=== PATIENT | female | born 1980 | race Caucasian/White ===

== ENCOUNTER 2018-06-01 21:00 | Emergency (ER) | payer MEDICAID, SELFPAY ==
[2018-06-01 21:05] VITALS: BP 135/116; PULSE 57; RESP 20; TEMP 36.8; O2SAT 95
[2018-06-01 21:15] VITALS: RESP 20
--- NOTE | 2018-06-01 21:22 | ED.GENADUL ---
Disposition Clinical Impression: Vaso-vagal reaction Disposition: HOME Condition: Good Additional Instructions: Home to rest tonight. May use Zofran every 4-6 hours, if needed for nausea. Continue all regularly and recently prescribed medications. Return to the emergency department if you develop a fever, persistent nausea, developed chest pain, or any other acute concerns Medical Decision Making - Lab Data Laboratory Results - last 24 hr 06/01/18 06/01/18 21:15 21:15 WBC 12.02 H RBC 5.27 H Hgb 15.8 H Hct 47.1 H MCV 89.4 MCH 30.0 MCHC 33.5 RDW 13.6 Plt Count 254 MPV 10.2 Immature Gran % See Differential Neutrophils % 42.0 Lymphocytes % 43.0 Monocytes % 6.0 Eosinophils % 0.0 Basophils % 0.0 Absolute Neutrophils 5.05 Absolute Lymphocytes 6.25 H Absolute Monocytes 0.72 H Absolute Eosinophils 0.00 Absolute Basophils 0.00 Differential Comment Manual differential Atypical Lymphocytes 9 RBC Morphology Normal Sodium 137 Potassium 3.5 D Chloride 101 Carbon Dioxide 26.5 Anion Gap 9.5 BUN 10 Creatinine 0.83 Estimated GFR/1.73 m2 >= 60.00 Glucose 108 H Calcium 9.5 Magnesium 2.2 Total Bilirubin 0.4 AST 14 L ALT 20 Alkaline Phosphatase 114 Troponin I < 0.02 Total Protein 8.1 Albumin 3.9 Results reviewed for labs ordered during visit: Yes - EKG Data EKG shows normal: sinus rhythm Rate: bradycardia 06/01/18 21:24 Sinus bradycardia, rate 54, QRS is narrow, intervals unremarkable, no ST segment elevation - Medical Decision Making 38-year-old female presents emerged from today complaining of nausea, diaphoresis, near syncopal event following her receipt of IM medications and 2 g of oral azithromycin just prior. She arrives improved, afebrile with no focal findings on exam. Given IV fluids, screening labs obtained. Slightly hemoconcentrated with white count 12, hematocrit 47, platelets 254. Normal differential. Chemistries essentially within normal limits. EKG notable only for slight bradycardia. Patient improved with fluids and antiemetic, tolerating liquids and solids by mouth, feeling better. Stable and improved comfort were discharged home. Given resolution of symptoms, most consistent with vasovagal mediated near syncope is likely secondary to 2 g of p.o. azithromycin that was given on earlier visit. Counseled patient regarding return precautions to the ER. She will be discharged with Zofran to be used as needed. She will continue the previously prescribed medications. History of Present Illness - General Chief complaint: Chest Pain Stated complaint: CALEX Time Seen by Provider: 06/01/18 21:14 Source: patient, RN notes reviewed Mode of arrival: wheelchair Limitations: no limitations - History of Present Illness Initial comments: 38-year-old female presents with near syncopal event after leaving the emergency department following earlier treatment including laboratories, CT scan, the administration of 2 g oral azithromycin and IM gentamicin and ceftriaxone. She says she developed diaphoresis, nausea, felt like she was going to vomit. She says she felt lightheaded. She called her daughter who found her weak and diaphoretic. It is now improved. It was moderate to severe, now mild. She did not have headache, for physical facial droop or difficulty with speech. No other associated symptoms - Related Data Ibuprofen 800 mg PO TID PRN #90 tab-cap 12/06/17 Buspirone HCl 10 - 20 mg PO BID #150 tab-cap 04/05/18 Sertraline HCl [Zoloft] 2 tab PO DAILY #180 tab-cap 04/05/18 Doxycycline [Vibramycin] 100 mg PO BID 14 Days cap 06/01/18 MetroNIDAZOLE [Flagyl] 500 mg PO BID 7 Days tab 06/01/18 Allergies Allergy/AdvReac Type Severity Reaction Status Date / Time erythromycin base Allergy Unknown Unverified 06/01/18 15:31 [Erythromycin Base] Penicillins Allergy Unknown Unverified 06/01/18 15:31 bupropion AdvReac Intermediate IRRITABILITY; Unverified 06/01/18 15:31 ANGER Review of Systems Other: 6 systems reviewed, otherwise neg Past Medical History - Past Medical History PCOS, Kidney stone Surgical history: bilateral tubal ligation, other (Uterine ablation, Foot surgery) ASSIGNMENT EDITOR history: PCOS - Social History Alcohol use: occasionally Drug use: none General Exam - General Limitations: no limitations General appearance: alert, in no apparent distress - Head Head exam: Present: atraumatic, normocephalic - Eye Eye exam: Present: normal apperance, PERRL, EOMI - ENT ENT exam: Present: normal exam - Neck Neck exam: Present: normal inspection, full ROM - Respiratory Respiratory exam: Present: normal lung sounds bilaterally. Absent: respiratory distress - Cardiovascular Cardiovascular Exam: Present: regular rate, normal rhythm - GI/Abdominal GI/Abdominal exam: Present: soft. Absent: distended, tenderness - Extremities Exam Extremities exam: Present: normal inspection, full ROM - Neurological Exam Neurological exam: Present: alert, oriented X3 - Psychiatric Psychiatric exam: Present: normal affect, normal mood - Skin Skin exam: Present: warm, dry, intact Course Vital Signs - 24 hr 06/01/18 21:05 Temperature 36.8 C Pulse 57 L Respiratory 20 Rate Blood Pressure 135/116 Pulse Oximetry 95
[2018-06-01] MEDS: Normal Saline 1,000 ML 1000 ML IV (21:25)
[2018-06-01 21:30] VITALS: O2SAT 96
[2018-06-01 21:31] VITALS: BP 127/84; PULSE 60; O2SAT 96
[2018-06-01 21:40] VITALS: O2SAT 95
[2018-06-01] MEDS: Ondansetron 4 MG/2 ML VIAL IVP (21:40)
[2018-06-01 21:41] LABS: Abs Immature Grans 0.02 k/cumm (0.0-0.09); HCT 47.1 % (36.0-46.0); HGB 15.8 g/dL (12.0-15.5); Mean Corp. HGB Concentration 33.5 g/dL (32.0-36.0); Mean Corpuscular Volume 89.4 fL (80-95); Mean Platelet Volume 10.2 fL (8.0-11.0); Platelet Count 254 x1000/uL (130-400); RBC 5.27 m/cumm (4.00-5.20); RBC Distribution Width 13.6 % (11.7-14.6); White Blood Cell Count 12.02 k/cumm (4.4-10.8)
[2018-06-01] MEDS: Normal Saline Flush 10 ML SYR IVP (21:41)
[2018-06-01 22:07] LABS: Absolute Neutrophil Count 5.05 k/cumm (1.2-6.7)
[2018-06-01 22:08] LABS: Absolute Lymphocyte Count 6.25 k/cumm (1.2-3.4); Absolute Monocyte Count 0.72 k/cumm (0.11-0.7); Atypical Lymphocytes % 9; Diff Comment Manual Differential; RBC Morphology Normal
[2018-06-01 22:17] LABS: ALT 20 U/L (12-78); AST 14 U/L (15-37); Albumin 3.9 g/dL (3.4-5.0); Alkaline Phosphatase 114 U/L (46-116); Anion Gap 9.5 mmol/L (3-11); BUN 10 mg/dL (7-18); Bilirubin, Total 0.4 mg/dL (0.2-1.0); CO2 26.5 mmol/L (21.0-32.0); CREATININE 0.83 mg/dL (0.55-1.02); Calcium 9.5 mg/dL (8.5-10.1); Chloride 101 mmol/L (98-107); Glucose 108 mg/dL (70-100); Magnesium 2.2 mg/dL (1.8-2.4); Potassium 3.5 mmol/L (3.5-5.1); Sodium 137 mmol/L (136-145); Total Protein 8.1 g/dL (6.4-8.2)
[2018-06-01 22:19] LABS: Troponin I < 0.02 ng/mL (0.00-0.06)
[2018-06-01 23:19] VITALS: BP 127/84; PULSE 60; RESP 20; TEMP 36.8; O2SAT 95
[2018-06-01] MEDS: Ondansetron O.D.T. 4 MG TABEF PO (23:19)
== END 2018-06-01 23:36 | disposition home or self-care (01) ==
PROVIDERS: Emergency Provider Emergency Medicine; PCP Nurse Practitioner Family
DX: R55 Syncope and collapse (principal); R11.0 Nausea; R00.1 Bradycardia, unspecified; R61 Generalized hyperhidrosis
CPT/HCPCS: 36415; 80053; 93005; 96361; 96374; 99284; 83735; 84484; 85025; 93010; J2405

== ENCOUNTER 2018-09-23 10:44 | Emergency (ER) | payer OTHER, MEDICAID, SELFPAY ==
[2018-09-23 10:59] VITALS: BP 114/86; PULSE 62; RESP 16; TEMP 36.3; O2SAT 98
--- NOTE | 2018-09-23 11:31 | W.ED.GENAD ---
Discharge Plan Disposition Patient Disposition: HOME Condition: Stable Discharge Details Chief Complaint: Nk/Back Pain Clinical Impression: Sacroiliitis Primary Care Provider: Radha Shea ED Provider: Ken Smith Home Meds and New Rx's Prescriptions: New prednisone 20 mg tablet 40 mg PO DAILY 5 Days Qty: 10 RF: 0 methocarbamol [Robaxin-750] 750 mg tablet 750 mg PO TID PRN (Reason: prn muscle/back pain) Qty: 20 RF: 0 Continue buspirone 10 MG tablet 10 - 20 mg PO BID Qty: 150 RF: 3 sertraline [Zoloft] 100 MG tablet 2 tab PO DAILY Qty: 180 RF: 3 levonorgestrel-ethinyl estrad [Lessina] 0.1-20 mg-mcg tablet 1 tab PO DAILY Qty: 84 RF: 4 Discharge Instructions Instructions: Acute Low Back Pain (ED) Additional Instructions: Return for changes to ability to urinate, motor weakness of the lower extremity, worsening pain or any other concern concerns. Ibuprofen 800 mg every 8 hours, with food. Prednisone as prescribed. Methocarbamol, as prescribed as needed. Remove lidocaine patch in 12 hours. May use heat and/or ice as needed for discomfort Please follow-up with physical therapy Stand Alone Forms: Physical Therapy Referral, Work Release Medical Decision Making 38-year-old female presents with 2 days of the gradual onset of left low back pain. 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 She does not have any motor or sensory deficits. Most consistent with sacroiliac dysfunction. Screening urinalysis obtained: We will prescribe her a burst of steroids, work duties at rest, methocarbamol as needed, as well as follow-up with physical therapy. She understands return precautions to the ED. HPI General Mode of arrival: ambulatory. Date/Time Provider Initiated Documentation: 09/23/18 11:00. Limitations to Documentation: no limitations. Information obtained by: patient. History of Present Illness 38 year old F presents to the emergency department with the chief complaint of Low Back Pain, described as moderate, and is localized to the back. Patient reports no radiation. Patient started experiencing this day(s) and it has been constant. Related Data Home Medications Medication Instructions Recorded Confirmed buspirone 10 - 20 mg PO BID #150 tab-cap 04/05/18 09/23/18 sertraline [Zoloft] 2 tab PO DAILY #180 tab-cap 04/05/18 09/23/18 levonorgestrel-ethinyl estradiol 1 tab PO DAILY #84 tab 09/19/18 09/23/18 0.1 mg-20 mcg tablet methocarbamol [Robaxin-] 750 mg PO TID PRN #20 tab 09/23/18 prednisone 40 mg PO DAILY 5 Days #10 tab 09/23/18 Previous Rx's Medication Instructions Recorded buspirone 10 - 20 mg PO BID #150 tab-cap 04/05/18 sertraline [Zoloft] 2 tab PO DAILY #180 tab-cap 04/05/18 levonorgestrel-ethinyl estradiol 1 tab PO DAILY #84 tab 09/19/18 0.1 mg-20 mcg tablet methocarbamol [Robaxin-] 750 mg PO TID PRN #20 tab 09/23/18 prednisone 40 mg PO DAILY 5 Days #10 tab 09/23/18 Allergies Allergy/AdvReac Type Severity Reaction Status Date / Time azithromycin Allergy Severe Syncopal Unverified 09/16/18 13:00 episode erythromycin base Allergy Unknown Unverified 09/23/18 11:01 [Erythromycin Base] Penicillins Allergy Unknown Unverified 09/23/18 11:01 bupropion AdvReac Intermediate IRRITABILITY; Unverified 09/23/18 11:01 ANGER General Stated Complaint: Nk/Back Pain SARABJIT: 3 Review of Systems Review of Systems 6 systems reviewed and otherwise neg. PFSH Family History Son Asthma MATERNAL/PATERNAL HISTORY Breast cancer Mother No problems noted. Father No problems noted. Brother No problems noted. Grandfather No problems noted. Grandmother Essential hypertension Hyperlipidemia Daughter No problems noted. 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 Pleasant, well groomed, interactive. HEAD: Normocephalic, atraumatic ENT: Mucous membranes moist, oropharynx unremarkable, External ear exam unremarkable EYES: PERRL, EOMI NECK: Full ROM, no SEJAL, no menigismus CHEST/RESP: Nontender, clear to auscultation bilateral, no wheeze/rhonchi/rales CARDIOVASCULAR: RRR, no murmur, rub kayla. 2+ Rad pulse bilateral ABDOMEN: Soft, nontender, no mass. +Bowel sounds Back: Left SI joint tender to palpation. No midline tenderness, step-off, deformity EXT: Full ROM, no edema, no rash. Motor 5 out of 5. Sensation intact throughout including cell distribution. 1+ patella and 2+ ankle reflex bilaterally Neuro: Grossly normal neurologic exam, conversant, interactive. Psych: Speech fluent, thoughts congruent, affect normal Course Vital Signs Temperature 36.3 C L 09/23/18 10:59 Pulse 62 09/23/18 10:59 Respiratory Rate 16 09/23/18 10:59 Blood Pressure 114/86 09/23/18 10:59 Pulse Oximetry 98 09/23/18 10:59 Temperature 36.3 C L 09/23/18 10:59 Temperature Source Temporal Artery Scan 09/23/18 10:59 Pulse 62 09/23/18 10:59 Respiratory Rate 16 09/23/18 10:59 Blood Pressure 114/86 09/23/18 10:59 Blood Pressure Position Standing 09/23/18 10:59 Pulse Oximetry 98 09/23/18 10:59 Oxygen Delivery Method Room Air 09/23/18 10:59 Oxygen Flow Rate 0 09/23/18 10:59 Pain Level 10 09/23/18 10:59
[2018-09-23 11:50] LABS: Bilirubin Negative (Negative); Blood Negative (Negative); Clarity Clear; Glucose Negative (Negative); Ketones Negative (Negative); Leukocyte Esterase Negative (Negative); Nitrite Negative (Negative); Specific Gravity >= 1.030 (1.005-1.025); Urobilinogen 0.2 EU/dL (Up TO 0.2); pH 5.5 (5-8)
[2018-09-23] MEDS: Lidocaine 5% Patch 1 PATCH (12:20)
[2018-09-23 12:22] VITALS: BP 126/84; PULSE 64; RESP 16; TEMP 36.6; O2SAT 98
== END 2018-09-23 12:45 | disposition home or self-care (01) ==
LOC: ER 12:26
PROVIDERS: Emergency Provider Emergency Medicine; PCP Nurse Practitioner Family
DX: M46.1 Sacroiliitis, not elsewhere classified (principal); Z87.442 Personal history of urinary calculi
CPT/HCPCS: 99283; 81003

== ENCOUNTER 2019-01-11 20:43 | Outpatient (REF) | payer MEDICAID, SELFPAY ==
--- NOTE | 2019-01-11 14:30 | PAPFT_PTH ---
PATIENT: Marisol Castro LOC: [facility] U#:[id number] AGE/SX: 38/F ROOM: RE01/11/[address]: JG Cortez : 1980 BED: DIS: 01/11/2019 SPEC #: [id number] RECD: 01/12/19 12:41 STATUS: TORRIE BENAVIDES #: [id number] CRISTOFER: 01/11/19 14:[address]: Radha Shea DEPT: [facility] Cytology RECD BY: Julius Orlando Tissues: 1 - CX/ENDOCX FOR PAP SMEARS Procedures: PAP THIN PREP/UVM Screening HPV DNA PROBE Comments: [id number]
== END 2019-01-11 21:03 ==
LOC: LBN 20:43
PROVIDERS: PCP Nurse Practitioner Family; Visit Provider Nurse Practitioner Family
DX: Z12.4 Encounter for screening for malignant neoplasm of cervix (principal); Z11.51 Encounter for screening for human papillomavirus (HPV)
CPT/HCPCS: 88142; 87624

== ENCOUNTER 2019-04-26 09:27 | Outpatient (CLI) | payer MEDICAID, SELFPAY ==
--- NOTE | 2019-04-26 15:11 | DI.US_ITS ---
SYMPTOMS/DIAGNOSIS: HEAD LUMP TO RIGHT FOREHEAD X 2 YEARS, SIZE INCREASED, 3.3 X 0.4 X 3.3 CM, R22.0 SOFT TISSUE ULTRASOUND: Soft tissue ultrasound was performed to evaluate a palpable abnormality of the right forehead. Ultrasound shows an apparently extra-calvarial 33 x 4 x 33 mm mass with linear echocharacteristics. This is not a cyst by ultrasound characteristics. The possibility that this represents a lipoma is raised, but other etiologies including neoplastic disease not excluded. Correlation with cranial CT recommended.
--- NOTE | 2019-04-26 15:11 | DI.RAD_ITS ---
SYMPTOM/DIAGNOSIS: RT FOREHEAD X 2 YEARS, SIZE INCREASED R22.0 LIMITED VIEWS OF THE SKULL: Limited views of the skull were obtained with tangential views of the area of palpable abnormality of the right frontal region. There is mild soft tissue prominence in this area. No underlying bony abnormality seen. CONCLUSION: No evidence of bony involvement by soft tissue lesion as seen on ultrasound. The findings are nonspecific but most likely related to benign process by history and imaging. Correlation with cranial CT recommended if clinically appropriate.
[2019-04-26 19:47] LABS: Anion Gap 9.6 mmol/L (3-11); BUN 11 mg/dL (7-18); CO2 28.4 mmol/L (21.0-32.0); CREATININE 0.77 mg/dL (0.55-1.02); Calcium 9.4 mg/dL (8.5-10.1); Chloride 105 mmol/L (98-107); FREE T4 0.86 ng/dL (0.76-1.46); Glucose 97 mg/dL (70-100); Potassium 3.7 mmol/L (3.5-5.1); Sodium 143 mmol/L (136-145); TSH 2.28 uIU/mL (0.358-3.74)
[2019-04-26 20:05] LABS: Calculated LDL 115 mg/dL; Cholesterol 194 mg/dL (50-200); HDL Cholesterol 43 mg/dL (40-60); Triglyceride 183 mg/dL (30-150)
[2019-04-27 08:44] LABS: Hemoglobin A1C 5.5 % (4.5-6.2)
== END 2019-04-26 09:47 ==
PROVIDERS: PCP Nurse Practitioner Family; Visit Provider Nurse Practitioner Family
DX: R22.0 Localized swelling, mass and lump, head (principal); E78.5 Hyperlipidemia, unspecified; E28.2 Polycystic ovarian syndrome; D17.0 Benign lipomatous neoplasm of skin and subcutaneous tissue of head, face and neck
CPT/HCPCS: 76536; 80048; 80061; 83721; 70250; 83036; 84439; 84443

== ENCOUNTER 2019-05-11 07:20 | Outpatient (CLI) | payer MEDICAID, SELFPAY ==
--- NOTE | 2019-05-11 15:04 | DI.CT_ITS ---
SYMPTOM/DIAGNOSIS: LUMP OF FOREHEAD, NEW HEADACHE, R22.[address]: Pre and post contrast examination was performed. There is a non-enhancing, fat density mass overlying the right frontal bone. This corresponds to the palpable abnormality as a BB is placed on the area. The mass measures 2.5 cm. AP by 0.7 cm. transverse by 2.2 cm. craniocaudal. The finding is most suggestive of a fat density lesion such as a lipoma. No solid component or enhancing component is seen. There is a normal mayes white matter differentiation. The ventricles are intact. The basilar cisterns are patent. No acute intracranial hemorrhage, midline shift or mass effect is identified. The visualized paranasal sinuses are clear as are the mastoid air cells. The calvarium is intact. IMPRESSION: 1. 2.5 by 2.2 by 0.7 cm. fat density, non enhancing extracalvarial mass is seen in the subcutaneous tissues overlying the right frontal bone. The finding is most suggestive of a lipoma. 2. No acute intracranial process.
[2019-05-11] MEDS: Omnipaque 350 MG/ML 100 ML BTL IJ (15:45)
[2019-05-11] MEDS: Normal Saline Flush 10 ML SYR IVP (15:46)
== END 2019-05-11 07:40 ==
PROVIDERS: PCP Nurse Practitioner Family; Visit Provider Nurse Practitioner Family
DX: R22.0 Localized swelling, mass and lump, head (principal); R51 Headache; D17.0 Benign lipomatous neoplasm of skin and subcutaneous tissue of head, face and neck
CPT/HCPCS: 70470; J3490

== ENCOUNTER 2019-05-31 13:19 | Outpatient (CLI) | payer OTHER, SELFPAY ==
--- NOTE | 2019-05-31 11:22 | DI.RAD_ITS ---
SYMPTOMS/DIAGNOSIS: LEFT-SIDED LOW BACK PAIN LUMBOSACRAL SPINE: The vertebral bodies are intact. The disc spaces are intact. Minimal bony hypertrophic changes are evident. Note is, however, made of disc narrowing at T9-10 and T10-T11 with endplate hypertrophic changes and syndesmophyte formation at T9-T10. The pedicles, spinous and transverse processes are intact. The sacrum and sacroiliac joints are unremarkable. SUMMARY: Minimal degenerative changes involving the lumbar spine are demonstrated. Incidental note is made of degenerative changes involving the lower dorsal spine with disc narrowing and hypertrophic bony spurring.
== END 2019-05-31 13:39 ==
PROVIDERS: PCP Nurse Practitioner Family; Visit Provider Physician Assistant
DX: M54.5 Low back pain (principal); M54.6 Pain in thoracic spine; M47.815 Spondylosis without myelopathy or radiculopathy, thoracolumbar region
CPT/HCPCS: 72100

== ENCOUNTER 2019-06-02 14:01 | Outpatient (CLI) | payer MEDICAID, SELFPAY ==
[2019-06-02 14:41] LABS: HCT 42.4 % (36.0-46.0); HGB 14.4 g/dL (12.0-15.5)
== END 2019-06-02 14:21 ==
PROVIDERS: PCP Nurse Practitioner Family; Visit Provider Obstetrics & Gynecology
DX: N94.6 Dysmenorrhea, unspecified (principal); R10.2 Pelvic and perineal pain; Z01.818 Encounter for other preprocedural examination; Z01.812 Encounter for preprocedural laboratory examination
CPT/HCPCS: 36415; 86850; 86900; 86901; 85014; 85018

== ENCOUNTER 2019-06-08 11:47 | Day surgery (SDC) | payer MEDICAID, SELFPAY ==
--- NOTE | 2019-06-02 14:03 | W.PM.HP.N ---
Date of service: 06/08/19 Time of Service: 07:03 Assessment and Plan (1) Dysmenorrhea: Current visit: No Status: Acute r/b/a reviewed alternative of hysterectomy reviewed all questions asked and answered consents signed (2) Pelvic pain: Current visit: No Status: Acute History of Present Illness Chief Complaint: chronic pelvic pain, dysmenorrhea Narrative: 39 yo female with long standing hx chronic pelvic pain and dysmenorrhea Progesterone and continuous ocp's have failed to control her pain She presented to seek alternative treatment for her pain. She had an endometrial ablation with Dr. Bustamante , however, she has not appreciated any reduction of her bleeding post procedure Alternatives have been discussed including diagnostic laparoscopy vs hysterectomy. She curtis been informed laparoscopy will not be an effective treatment for menorraghia. She has declined hysterectomy Review of Systems Review of Systems All systems reviewed & are unremarkable except as noted in HPI and below PFSH Medical History Cigarette smoker (Chronic) Depressive disorder (Chronic 06/19/13) Gastroesophageal reflux disease without esophagitis (Inactive 02/06/16) Hyperlipidemia (Chronic) Obesity (Inactive) PCOS (polycystic ovarian syndrome) (Chronic 07/13/14) Surgical History History of bilateral ligation of fallopian tubes (Inactive) Hx of bursectomy (Inactive 02/04/15) S/P excision of ganglion cyst (Inactive 03/20/14) Family History Mother No problems noted. Father No problems noted. Brother No problems noted. Daughter No problems noted. Son Asthma Maternal Grandfather No problems noted. Maternal Grandmother Essential hypertension Hyperlipidemia Paternal Grandfather No problems noted. Paternal Grandmother No problems noted. 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 Pets and animals: Yes Pets and animals: cat(s) and bird(s) Sexually active: Yes Do you think of yourself as: straight/heterosexual What is your relationship status?: How often do you talk on the phone with friends or family?: three or more times per week How often do you get together with friends or relatives?: decline to answer How often do you attend voodoo or druze services?: decline to answer Do you belong to any clubs or organized social groups?: no Panel score (0-1 are the most socially isolated patients): 1 What type of physical activity do you participate in: none Frequency: daily Kailee/Presybeterian: None Special kailee needs: No Do you feel safe in your relationship?: Yes Female Reproductive History Menstrual control method: pills History History 2 Para 2 Hx # Term Pregnancies Multiple births Hx # Pregnancies Ectopic pregnancies AB induced Hx Number of Living Children 2 AB spontaneous Meds Home Medications Medication Instructions Recorded Confirmed Type methocarbamol 750 mg tablet 750 mg PO TID PRN #90 tab 12/14/18 06/02/19 Rx norethindrone (contraceptive) 0.35 0.35 mg PO DAILY #28 tab 02/03/19 06/02/19 Rx mg tablet ibuprofen 800 mg tablet 800 mg PO Q12H PRN #90 tab 04/13/19 06/02/19 Rx sumatriptan succinate 50 mg tablet 50 mg PO Q2H PRN #60 tab 04/13/19 06/02/19 Rx sertraline 100 mg tablet 200 mg PO DAILY #180 tab 05/29/19 06/02/19 Rx buspirone 10 mg tablet 10 mg PO BID tab 05/31/19 06/02/19 History Allergies Allergy/AdvReac Type Severity Reaction Status Date / Time azithromycin Allergy Severe Syncopal Unverified 06/02/19 13:18 episode erythromycin base Allergy Unknown Unverified 06/02/19 13:18 [Erythromycin Base] Penicillins Allergy Unknown Unverified 06/02/19 13:18 bupropion AdvReac Intermediate IRRITABILITY; Unverified 06/02/19 13:18 ANGER Exam Const General: cooperative, healthy appearing, comfortable and no acute distress Resp Effort & Inspection: normal respiratory effort Auscultation: clear to auscultation bilaterally Cardio Rate: regular rate Rhythm: regular rhythm Heart Sounds: S1 normal and S2 normal GI Inspection: normal to inspection Palpation: soft and no hepatosplenomegaly Auscultation: normal bowel sounds Speculum Exam - Cervix: normal appearance of the cervix and cervical tenderness Bimanual Exam- Vagina & Uterus: cervical tenderness and uterus fixed Bimanual Exam- Adnexa, other: no adnexal masses and adnexal tenderness
[2019-06-08] VITALS (9 sets, daily range): BP systolic 122–149; BP diastolic 61–108; PULSE 75–83; RESP 13–18; TEMP 36.3–37.1; O2SAT 93–97
[2019-06-08] MEDS: Lactated Ringers 1,000 ML 125 ML IV ×2 (12:26→15:41)
[2019-06-08] MEDS: Bupivacaine 0.25% Pres-Free 30 ML VIAL (13:13)
[2019-06-08] MEDS: fentaNYL 100 MCG/2 ML VIAL IVP ×2 (14:51→15:15)
[2019-06-08] MEDS: Ondansetron 4 MG/2 ML VIAL IVP (14:55)
[2019-06-08] MEDS: HYDROmorphone 2 MG/ML VIAL IVP (15:08)
[2019-06-08] MEDS: oxyCODONE 5 mg/Acetaminophen 325 mg TAB 1 TAB PO (16:43)
--- NOTE | 2019-06-09 11:55 | ROE_ITS ---
DATE OF PROCEDURE: June 08, 2019 PREOPERATIVE DIAGNOSIS: Pelvic pain. POSTOPERATIVE DIAGNOSIS: Pelvic pain, extensive pelvic adhesions. SURGERY: Diagnostic laparoscopy, extensive lysis of adhesions for greater than one hour. SURGEON: Fidelina Allen M.D. LANCE CREWMEMBER/MLRS SERGEANT: João Jones ANESTHESIA: General. COMPLICATIONS: None. ESTIMATED BLOOD LOSS: < 25 cc's FLUIDS: 700 cc's LR URINE OUTPUT: 100 cc's FINDINGS: Normal liver, gallbladder. Multiple adhesions to the right pelvic sidewall; epiploica adh esions to the right fallopian tube and ovary; adhesions along the left pelvic sidewall and mid-abdome n. PROCEDURE: The patient was taken to the Operating Room where she was properly identified. She was t hen placed on the operating table in the dorsal supine position and general anesthesia was induced wi thout difficulty. She was then placed in the dorsal lithotomy position. She had SCD boots on. She was prepped and draped in a normal sterile fashion. A formal time-out procedure was then performed, confirming patient and procedure. A Juarez catheter was placed. A bi-valved speculum was placed; the cervix was visualized and the uterine manipulator advanced into the uterine cavity without difficulty. The speculum was removed. The surgeon changed her gloves and attention was then turned to the abdomen. A 5 mm infraumbilical injection was made with 0.25% Aby ine. A 5 mm incision was made. The Veress needle was attempted to be placed into the peritoneal cav ity; however there was no drop in pressure, nor changes in a fluid-filled syringe. Therefore it was decided to proceed with an open laparoscopy. A 10 mm incision was made as an extension from the 5 mm incision; this was carried down to the underl tata fascia. The fascia was grasped x2 with Conor clamps and entered sharply. A Verónica was then pl aced. Sutures were placed to secure the Verónica in position. The abdomen was then insufflated of C02 gas. The laparoscope advanced into the peritoneal cavity and a thorough inspection ensued with the above findings. Over greater than an hour and a half was the time. Each area of adhesion was taken down in a series of cauterization and cut. The lysis of adhesions started with first removing the ad hesions of the epiploica to the right fallopian tube and ovary, then the right pelvic sidewall and le ft pelvic sidewall, and then the mid-abdomen, where there were adhesions to the anterior abdominal wa ll. A thorough inspection of the pelvic cavity revealed no evidence of endometriosis. The pelvis wa s irrigated. A small amount of cautery was required on the right fallopian tube to achieve hemostasi s. Once hemostasis was confirmed, the abdomen was de-sufflated of C02 gas, the ports removed and the fascia of the 10 mm port at the umbilicus was closed with a [id number]-orvoz of #0 Vicryl. The skin was closed with #4-0 Monocryl in a subcuticular fashion, both the 10 mm and the two lower 5 mm ports and then Dermabond was applied. The Juarez was removed, as well as the uterine manipulator. The regla ent was taken to the recovery room in stable condition. Sponge, lap, needle and instrument counts we re correct x2.
== END 2019-06-08 17:00 | disposition home or self-care (01) ==
PROVIDERS: PCP Nurse Practitioner Family; Visit Provider Obstetrics & Gynecology
PROC: (CPT 49320; principal; 2019-06-08 13:00)
DX: R10.2 Pelvic and perineal pain (principal); N73.6 Female pelvic peritoneal adhesions (postinfective)
CPT/HCPCS: 58660; NC; J1100; J1885; J2405; J3010

== ENCOUNTER 2020-04-20 09:19 | Emergency (ER) | payer MEDICAID, SELFPAY ==
[2020-04-20 09:24] VITALS: BP 142/89; PULSE 81; RESP 18; TEMP 36.8; O2SAT 96
--- NOTE | 2020-04-20 10:08 | ED.GENADUL_ITS ---
Discharge Plan Disposition Patient Disposition: HOME Condition: Stable Discharge Details Chief Complaint: EyeProblem Clinical Impression: Sty, internal Primary Care Provider: Radha Shea ED Provider: Lilia Longoria Home Meds and New Rx's Prescriptions: New ofloxacin 0.3 % drops See Rx Instructions .ROUTE .COMPLEX Qty: 5 RF: 1 Continued methocarbamol [Robaxin-750] 750 mg tablet 750 mg PO TID PRN (Reason: prn muscle/back pain) Qty: 90 RF: 2 sumatriptan succinate 50 mg tablet 50 mg PO Q2H PRN (Reason: migraine headache) Qty: 60 RF: 1 ibuprofen [IBU] 800 mg tablet 800 mg PO Q8H PRN (Reason: pain) Qty: 90 RF: 2 Lupron Depot (3 month) 11.25 mg syringe kit 11.25 mg IM [id number] Qty: 1 RF: 0 norethindrone acetate [Aygestin] 5 mg tablet 2.5 mg PO DAILY Qty: 90 RF: 3 estradiol [Estrace] 0.5 mg tablet 0.5 mg PO DAILY Qty: 90 RF: 3 sertraline [Zoloft] 100 mg tablet 200 mg PO DAILY Qty: 180 RF: 4 buspirone 10 mg tablet 10 - 20 mg PO TID Qty: 420 RF: 4 Discharge Instructions Instructions: Annita (ED) Additional Instructions: Frequent warm compresses to the eye as discussed. After using warm compresses please wash hands to avoid any spread and wash compresses. Use antibiotic drops as prescribed. Tylenol for soreness if needed. Follow-up with [facility] if not improving in the next 3 days Rest activities as tolerated. Observe for fevers, increased eye pain or swelling, vision changes or worsening symptoms as discussed. Return for any worsening, concerns or alarming symptoms sooner if needed as discussed Referrals: [facility] [Outside] Medical Decision Making 39-year-old patient who is quite pleasant presenting to the emergency room for complaints of left lower eyelid discomfort which began 6 days ago. Patient denies any vision change or blurred vision. Patient was concerned with the development of a stye and reports increase in swelling and pain since onset on Wednesday. Patient denies any fevers or chills. Patient denies any injury or trauma to the eye. On exam patient has clinical findings consistent with stye to the lower left lateral eyelid with associated crusting. No conjunctival injection. Will treat appropriately for stye recommending warm compresses as well as antibiotic administration. Given patient's allergies to azithromycin erythromycin and penicillin will use ofloxacin. Patient agrees with plan of care. Provided referral information for [facility] if symptoms are not improving over the weekend. Alarming signs and symptoms for which patient should return were discussed. At this time patient has no evidence of conjunctival infection or irritation. Patient has nothing to indicate a septal or preseptal cellulitis. The patient was stable and requested discharge. Prior to discharge, my usual and customary return precautions were reviewed with the patient - this included follow-up instructions and reasons to return to the Emergency Department if conditions worsens, does not improve as expected, or other new concerns arise. HPI General Date/Time Provider Initiated Documentation: 04/20/20 09:24 . HPI Narrative: This is a 39-year-old patient presenting to the emergency room for complaints of left eye pain. Patient indicates the area of the left lower lateral aspect of her eyelid as her site of pain. Patient reports she went to her PCP on Wednesday concern for developing stye. Patient reports she has not been prescribed antibiotic, PCP felt conservative treatments would improve patient's symptoms. Patient reports persistent symptoms throughout the weeks worsening yesterday and this morning. Patient now has an obvious area of redness and swelling noted to the left lower eyelid. Patient denies any vision change, blurred vision, double vision. Patient denies any pain to the globe. Patient denies headache or dizziness. Denies any ill feeling. No upper respiratory symptoms specifically denies sore throat, chest pain, cough, difficulty breathing or shortness of other wheezing. No fevers or chills. No other concerns or complaints at this time. Patient specifically denies any injury or trauma to the eye. Related Data Home Medications Medication Instructions Recorded Confirmed sertraline 100 mg tablet 200 mg PO DAILY #180 tab 05/29/19 04/20/20 buspirone 10 mg tablet 10 - 20 mg PO TID #420 tab-cap 10/10/19 04/20/20 leuprolide (3 month) 11.25 mg (3 11.25 mg IM [id number] #1 each 01/02/20 04/20/20 month) intramuscular syringe kit norethindrone acetate 5 mg tablet 2.5 mg PO DAILY #90 tab 01/02/20 04/20/20 ibuprofen 800 mg tablet 800 mg PO Q8H PRN #90 tab 01/17/20 04/20/20 methocarbamol 750 mg tablet 750 mg PO TID PRN #90 tab 01/17/20 04/20/20 sumatriptan succinate 50 mg tablet 50 mg PO Q2H PRN #60 tab 01/17/20 04/20/20 estradiol 0.5 mg tablet 0.5 mg PO DAILY #90 tab 01/30/20 04/20/20 ofloxacin See Rx Instructions .ROUTE 04/20/20 .COMPLEX #5 ml Previous Rx's Medication Instructions Recorded sertraline 100 mg tablet 200 mg PO DAILY #180 tab 05/29/19 buspirone 10 mg tablet 10 - 20 mg PO TID #420 tab-cap 10/10/19 leuprolide (3 month) 11.25 mg (3 11.25 mg IM [id number] #1 each 01/02/20 month) intramuscular syringe kit norethindrone acetate 5 mg tablet 2.5 mg PO DAILY #90 tab 01/02/20 ibuprofen 800 mg tablet 800 mg PO Q8H PRN #90 tab 01/17/20 methocarbamol 750 mg tablet 750 mg PO TID PRN #90 tab 01/17/20 sumatriptan succinate 50 mg tablet 50 mg PO Q2H PRN #60 tab 01/17/20 estradiol 0.5 mg tablet 0.5 mg PO DAILY #90 tab 01/30/20 ofloxacin See Rx Instructions .ROUTE 04/20/20 .COMPLEX #5 ml Allergies Allergy/AdvReac Type Severity Reaction Status Date / Time azithromycin Allergy Severe Syncopal Unverified 04/20/20 09:28 episode erythromycin base Allergy Intermediate Nausea Unverified 04/20/20 09:28 [Erythromycin Base] Penicillins Allergy Unknown Unverified 04/20/20 09:28 bupropion AdvReac Intermediate IRRITABILITY; Unverified 04/20/20 09:28 ANGER General Stated Complaint: EyeProblem SARABJIT: 4 Review of Systems All systems reviewed & are unremarkable except as noted in HPI and below PFSH Medical History Cigarette smoker (Chronic) Depressive disorder (Chronic) Gastroesophageal reflux disease without esophagitis (Inactive) Generalized anxiety disorder (Chronic) Hyperlipidemia (Chronic) Obesity (Inactive) PCOS (polycystic ovarian syndrome) (Chronic) Social History Smoking/Tobacco Use Status: Current every day Tobacco Type: cigarettes Smoking packs per day: 0.75 Smoking cigarettes per day: 15.0 Years smoked: 20 Smoking pack-years: 15.00 Quit status: not considering quitting Second Hand Exposure: Yes Counseling given: provider counseling Alcohol Intake: never Drug use: Daily Substance use type: marijuana Caregiver/Support person: No Household members: children Housing: apartment Communication Needs: None Do you need help understanding health information?: Rarely 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 Pets and animals: Yes Pets and animals: cat(s) and bird(s) Sexually active: Yes Do you think of yourself as: straight/heterosexual Current gender identity: male What is your relationship status?: How often do you talk on the phone with friends or family?: decline to answer How often do you get together with friends or relatives?: decline to answer How often do you attend rastafari or baptist services?: decline to answer Do you belong to any clubs or organized social groups?: no Panel score (0-1 are the most socially isolated patients): 0 What type of physical activity do you participate in: decline to answer Duration: decline to answer Frequency: decline to answer Kailee/Restorationism: Other Special kailee needs: No Seatbelt use: sometimes Helmet use: Yes Helmet use: sometimes Drive intox or ride w/intox local flatbed driver: No Do you feel safe at home: Yes Do you feel safe in your relationship?: Yes Female Reproductive History Menstrual control method: permanent sterilization History History 2 Para 2 Hx # Term Pregnancies Multiple births Hx # Pregnancies Ectopic pregnancies AB induced Hx Number of Living Children 2 AB spontaneous Exam Narrative Exam Narrative: CONST: Healthy appearing patient, in no acute distress. Well hydrated. Alert and oriented. HENMT: Head nomocephalic, normal to inspection. Atraumatic. Hearing grossly normal. EYES: General normal appearance. Alignment normal. Eyelids normal on right. Obvious area of swelling and tenderness with palpation noted to the lower left lateral eyelid. Edema present focally. Crusting on the lower lid present in the lateral canthus. Conjunctiva normal. Extraocular movements intact without pain NECK: Normal visual inspection. FROM. Trachea midline. No Midline tenderness. No cervical lymphadenopathy CHEST: Normal insepection of the chest. RESP: Normal respiratory effort. Speaking full sentences. No cough. No audible wheezing. No retractions. CARDIO: No JVD. MUSCULOSKELETAL: Normal Gait. FROM of all extremities. SKIN: Normal. Dry. No rashes. NEURO: Alert and awake. Speech clear. PSYCH: Normal affect. Cooperative. Course Vital Signs Vital signs: Vital Signs Temperature 36.8 C 04/20/20 09:24 Pulse 81 04/20/20 09:24 Respiratory Rate 18 04/20/20 09:24 Blood Pressure 142/89 H 04/20/20 09:24 Pulse Oximetry 96 04/20/20 09:24 Temperature 36.8 C 04/20/20 09:24 Temperature Source Temporal Artery Scan 04/20/20 09:24 Pulse 81 04/20/20 09:24 Respiratory Rate 18 04/20/20 09:24 Respiratory Effort Non-Labored 04/20/20 09:30 Blood Pressure 142/89 H 04/20/20 09:24 Blood Pressure Position Sitting 04/20/20 09:24 Pulse Oximetry 96 04/20/20 09:24 Pain Level 8 04/20/20 09:24
== END 2020-04-20 10:11 | disposition home or self-care (01) ==
PROVIDERS: Emergency Provider Physician Assistant; PCP Nurse Practitioner Family
DX: H00.025 Hordeolum internum left lower eyelid (principal)
CPT/HCPCS: 99283

== ENCOUNTER 2020-05-27 21:24 | Outpatient (REF) | payer MEDICAID, SELFPAY ==
[2020-05-30 18:34] LABS: Chlamydia Result Negative (Negative); GC Result Negative (Negative)
== END 2020-05-27 21:44 ==
LOC: LBN 21:24
PROVIDERS: PCP Nurse Practitioner Family; Visit Provider Obstetrics & Gynecology
DX: R10.9 Unspecified abdominal pain (principal); R10.2 Pelvic and perineal pain
CPT/HCPCS: 87491; 87591; 87086; 87480; 87510; 87660

== ENCOUNTER 2020-11-20 02:36 | Outpatient (CLI) | payer MEDICAID, SELFPAY ==
--- NOTE | 2020-11-20 07:45 | DI.US_ITS ---
EXAM: US PELVIS TRANSVAGINAL CLINICAL HISTORY: PELVIC PAIN, R10.2. TECHNIQUE: Transabdominal and transvaginal pelvic ultrasound was performed using standard protocol. COMPARISON: US PELVIS TRANSVAG from 02/02/2012 FINDINGS: KIDNEYS: Kidneys are symmetric in size. There is a single shadowing echogenic focus in each kidney co nsistent with nonobstructing stones. No evidence of hydronephrosis. No renal mass or cyst identified . UTERUS: Position: Anteverted. Size: 6.1 long by 2.3 AP by 4.2 transverse cm Endometrium: 0.2 cm. Normal for patient's menstrual status. Myometrium: Unremarkable. Cervix: Unremarkable. OVARIES: Right: 2.8 x 1.6 x 2 cm Cyst or mass: Small functional cysts are present. Left: 2.1 x 1.4 x 1.4 cm Cyst or mass: Small functional cysts are present. DOPPLER: Color: Symmetric and uniform flow to both ovaries. No hyperemia. Duplex: Normal ovarian arterial waveforms visualized. CUL-DE-SAC: Free fluid: None. Other: None. IMPRESSION: 1. Bilateral nephrolithiasis. No hydronephrosis. 2. Normal-appearing uterus with endometrial stripe within normal limits. 3. Unremarkable bilateral ovaries. DATA REPOSITORY:
== END 2020-11-20 02:56 ==
PROVIDERS: PCP Nurse Practitioner Family; Visit Provider Obstetrics & Gynecology
DX: N20.0 Calculus of kidney (principal)
CPT/HCPCS: 76830; 76856

== ENCOUNTER 2020-12-10 08:53 | Emergency (ER) | payer MEDICAID, SELFPAY ==
--- NOTE | 2020-12-10 08:56 | ED.GENADUL_ITS ---
Discharge Plan Disposition Patient Disposition: HOME Condition: Stable Discharge Details Clinical Impression: URI with cough and congestion Primary Care Provider: Radha Shea ED Provider: Sheri Sánchez Home Meds and New Rx's Prescriptions: Continued methocarbamol [Robaxin-750] 750 mg tablet 750 mg PO TID PRN (Reason: prn muscle/back pain) Qty: 90 RF: 2 sumatriptan succinate 50 mg tablet 50 mg PO Q2H PRN (Reason: migraine headache) Qty: 60 RF: 1 ibuprofen [IBU] 800 mg tablet 800 mg PO Q8H PRN (Reason: pain) Qty: 90 RF: 2 buspirone 10 mg tablet 10 - 20 mg PO TID Qty: 420 RF: 4 cyclobenzaprine 10 mg tablet 10 mg PO HS Qty: 30 RF: 0 progesterone micronized [Prometrium] 100 mg capsule 100 mg PO QAM 90 Days Qty: 90 RF: 3 sertraline [Zoloft] 100 mg tablet 200 mg PO DAILY Qty: 180 RF: 4 Discharge Instructions Instructions: Ipratropium/Albuterol (By breathing), Upper Respiratory Infection (ED) Additional Instructions: Use inhaler 1 to 2 puffs every 4-6 hours as needed for wheezing and shortness of breath, try to quit smoking if possible or at least cut down. Your flu swab and strep swab were negative today, chest x-ray shows no pneumonia or pulmonary infiltrate. Please take Tylenol or Ibuprofen with food every 4-6 hours as needed for pain and swelling. Follow up with primary care provider in 3-5 days. Return to ED sooner if any worsening or concerns. Increase oral fluids. Stand Alone Forms: PENDING COVID-19 TESTING, Work Release Referrals: Radha Shea NP [Primary Care Provider] - Discharge Data Discharge Date/Time-TO BE ENTERED AT DEPARTURE: 12/10/20 11:18 Medical Decision Making 40-year-old female with a past medical history of PCOS, hyperlipidemia, obesity, daily cigarette smoker, GERD, depression presents to the ED chief complaint of URI type symptoms, she reports cough, sore throat, sinus pressure, wheezing. She has been on prednisone for the last 9 days for back pain. Work-up ordered including Covid, flu, rapid strep chest x-ray and albuterol, ipratropium inhaler 2 puffs here now. Patient denies any chance of due to previous tubal ligation. Differential diagnosis includes but not limited to bronchitis, Covid, flu, strep, pneumonia, early COPD COMPARISON: CR CHEST 2 VIEWS PA,LAT from 06/01/2018 FINDINGS: MEDIASTINUM: Normal. HEART: Normal. PULMONARY VASCULATURE: Normal. LUNGS: Clear. PLEURAL SPACE: No pleural effusion or pneumothorax. BONE:Within normal limits for the patient's age. OTHER FINDINGS:Normal. IMPRESSION: No acute pulmonary findings. At the time of this dictation PET Covid is pending, strep is negative, negative for flu a and B antigens. Discussed results with patient, who verbalized understanding. Will place patient on Covid precautions. Discuss strict return instructions, verbalized un derstanding. Patient given Combivent inhaler 2 puffs here now an inhaler to go home with. This text was generated using [employer] dictation system, please disregard any oddities of phrase or misspellings. HPI General Mode of arrival: ambulatory . Date/Time Provider Initiated Documentation: 12/10/20 08:54 . Limitations to Documentation: no limitations . Information obtained by: patient . HPI Narrative: 40-year-old female with a past medical history of PCOS, hyperlipidemia, obesity, daily cigarette smoker, GERD, depression presents to the ED chief complaint of URI type symptoms, she reports cough, sore throat, sinus pressure, wheezing. She has been on prednisone for the last 9 days for back pain. Related Data Home Medications Medication Instructions Recorded Confirmed ibuprofen 800 mg tablet 800 mg PO Q8H PRN #90 tab 01/17/20 12/10/20 methocarbamol 750 mg tablet 750 mg PO TID PRN #90 tab 01/17/20 12/10/20 sumatriptan succinate 50 mg tablet 50 mg PO Q2H PRN #60 tab 01/17/20 12/10/20 sertraline 100 mg tablet 200 mg PO DAILY #180 tab 05/29/20 12/10/20 buspirone 10 mg tablet 10 - 20 mg PO TID #420 tab-cap 07/18/20 12/10/20 cyclobenzaprine 10 mg tablet 10 mg PO HS #30 tab 10/28/20 12/10/20 progesterone micronized 100 mg 100 mg PO QAM 90 Days #90 cap 12/03/20 12/10/20 capsule Previous Rx's Medication Instructions Recorded ibuprofen 800 mg tablet 800 mg PO Q8H PRN #90 tab 01/17/20 methocarbamol 750 mg tablet 750 mg PO TID PRN #90 tab 01/17/20 sumatriptan succinate 50 mg tablet 50 mg PO Q2H PRN #60 tab 01/17/20 sertraline 100 mg tablet 200 mg PO DAILY #180 tab 05/29/20 buspirone 10 mg tablet 10 - 20 mg PO TID #420 tab-cap 07/18/20 cyclobenzaprine 10 mg tablet 10 mg PO HS #30 tab 10/28/20 progesterone micronized 100 mg 100 mg PO QAM 90 Days #90 cap 12/03/20 capsule Allergies Allergy/AdvReac Type Severity Reaction Status Date / Time azithromycin Allergy Severe Syncopal Verified 12/10/20 09:06 episode erythromycin base Allergy Intermediate Nausea Verified 12/10/20 09:06 [Erythromycin Base] Penicillins Allergy Unknown Verified 12/10/20 09:06 bupropion AdvReac Intermediate IRRITABILITY; Verified 12/10/20 09:06 ANGER General SARABJIT: 4 Review of Systems Narrative: Constitutional: Negative for weight loss, alert and oriented, well groomed, normal body habitus, appears uncomfortable. HEENT: Denies trauma, headaches, blurry vision, positive sore throat, trouble swallowing. Chest: Denies chest pain, palpitations, irregular rhythm, hypertension. Respiratory: Denies hemoptysis. Positive cough, wheezing, productive cough with yellow phlegm. GI: Denies abdominal pain, nausea, vomiting, diarrhea, constipation. : Denies dysuria, hematuria, flank pain, rectal bleeding. Neuro: Denies dizziness, blurry vision, weakness, syncope, headache or facial numbness. Hematologic: Denies easy bruising, intolerance to heat or cold, hair loss. [facility] Medical History Cigarette smoker Depressive disorder Gastroesophageal reflux disease without esophagitis Generalized anxiety disorder Hyperlipidemia Obesity PCOS (polycystic ovarian syndrome) Pelvic pain Surgical History History of bilateral ligation of fallopian tubes History of endometrial ablation Hx of bursectomy (02/04/15) Excision of chronically inflamed prepatellar bursa, left knee. S/P excision of ganglion cyst (03/20/14) Of right ankle Family History Mother No problems noted. Father No problems noted. Brother No problems noted. Daughter No problems noted. Son Asthma Maternal Grandfather No problems noted. Maternal Grandmother Essential hypertension Hyperlipidemia Paternal Grandfather No problems noted. Paternal Grandmother No problems noted. 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 Pets and animals: Yes Pets and animals: cat(s) and bird(s) Sexually active: Yes Do you think of yourself as: straight/heterosexual Current gender identity: male What is your relationship status?: How often do you talk on the phone with friends or family?: decline to answer How often do you get together with friends or relatives?: decline to answer How often do you attend uatsdin or anabaptism services?: decline to answer Do you belong to any clubs or organized social groups?: no Panel score (0-1 are the most socially isolated patients): 0 What type of physical activity do you participate in: decline to answer Duration: decline to answer Frequency: decline to answer Kailee/Yarsanism: Other Special kailee needs: No Seatbelt use: sometimes Helmet use: Yes Helmet use: sometimes Drive intox or ride w/intox wedding transportation driver: No Do you feel safe at home: Yes Do you feel safe in your relationship?: Yes Female Reproductive History Menstrual control method: permanent sterilization History History 2 Para 2 Hx # Term Pregnancies Multiple births Hx # Pregnancies Ectopic pregnancies AB induced Hx Number of Living Children 2 AB spontaneous Exam Narrative Exam Narrative: Constitutional: Alert and oriented x3. Appears stated age. Normal body habitus. Head: Normocephalic, no trauma. Eyes: Pupils PERRLA, Red reflex noted, EOM's intact. Eyelids symmetrical without lesions, discharge, or swelling. ENT: Bilateral TM's WNL, External ear normal to inspection, no mastoid TTP, swelling, or erythema, Nasal turbinates WNL, no nasal discharge. Normal dentition, Posterior pharynx erythemic no exudate. Uvula midline, tonsils 1+ bilaterally Chest: RRR, Normal S1, S2, distal pulses intact. Resp: Lungs expiratory and inspiratory wheezes left upper and lower lobe, right lobe clear to auscultation no rales, or rhonchi. Musculoskeletal: Normal gait, 5/5 strength to all four extremities. Skin: No suspicious rashes or lesions. Capillary refill less than 2 sec. Neurologic: Cranial nerves II-XII intact. Alert and oriented x 3. DTR's intact. Hematologic/Lymphatic: No ecchymosis, no lymphadenopathy.
[2020-12-10 09:01] VITALS: BP 120/95; PULSE 84; RESP 18; TEMP 36.7; O2SAT 94
[2020-12-10] MEDS: Ipratropium/Albuterol 4 GM 120 PUFF INH IH (09:40)
--- NOTE | 2020-12-10 09:59 | DI.RAD_ITS ---
EXAM: XR PORTABLE CHEST AP CLINICAL HISTORY: PUI, Cough, wheezing, TECHNIQUE: 2D digital imaging was performed. COMPARISON: CR CHEST 2 VIEWS PA,LAT from 06/01/2018 FINDINGS: MEDIASTINUM: Normal. HEART: Normal. PULMONARY VASCULATURE: Normal. LUNGS: Clear. PLEURAL SPACE: No pleural effusion or pneumothorax. BONE:Within normal limits for the patient's age. OTHER FINDINGS:Normal. IMPRESSION: No acute pulmonary findings. DATA REPOSITORY: RADIATION DOSE DELIVERED:
[2020-12-10 11:20] VITALS: PULSE 80; RESP 16; TEMP 36.8; O2SAT 95
[2020-12-11 14:02] LABS: COVID-19 RT-PCR UVMMC Result Negative (Negative)
== END 2020-12-10 11:18 | disposition home or self-care (01) ==
PROVIDERS: Emergency Provider Registered Nurse Emergency; PCP Nurse Practitioner Family
DX: R05 Cough (principal); J06.9 Acute upper respiratory infection, unspecified; J02.8 Acute pharyngitis due to other specified organisms; F17.210 Nicotine dependence, cigarettes, uncomplicated; Z03.818 Encounter for observation for suspected exposure to other biological agents ruled out
CPT/HCPCS: 87449; 87880; 99283; U0003; 71045; 87081; J3490

== ENCOUNTER 2020-12-12 01:42 | Outpatient (CLI) | payer MEDICAID, SELFPAY ==
--- NOTE | 2020-12-12 08:30 | DI.MRI_ITS ---
EXAM: MR LUMBAR SPINE WO CLINICAL HISTORY: Worsening low back pain, DDD on 2019 xray,,RADICULOPATHY,M54.16. TECHNIQUE: Multiplanar multisequence MRI was performed. COMPARISON: CR XR lumbar spine AP, LAT from 05/31/2019 CR XR lumbar spine AP, LAT from 05/31/2019 CR XR PORTABLE CHEST AP from 12/10/2020 FINDINGS: The conus medullaris appears normal. Marrow signal is normal. T12-L1 and L1-2 discs have a normal appearance. There is partial disc desiccation and small endplate osteophytes at L2-3. There is no s ignificant disc bulging. At L3-4, there is mild disc bulging. The L4-5 disc has a normal appearance . There are mild facet degenerative changes and ligamentous hypertrophy at this level but no signifi cant neural foraminal narrowing or central canal stenosis. At L5-S1, there is a tiny left-sided foca l disc protrusion which may contact the S1 nerve root. The visualized portions of the SI joints are unremarkable. The aorta is normal in diameter. IMPRESSION: Small focal disc protrusion at L5-S1 may impinge on the left S1 nerve root. Mild degenerative sanches es are seen at other levels. DATA REPOSITORY:
== END 2020-12-12 01:43 ==
LOC: DI 01:42
PROVIDERS: PCP Nurse Practitioner Family; Visit Provider Nurse Practitioner Family
DX: M51.17 Intervertebral disc disorders with radiculopathy, lumbosacral region (principal)
CPT/HCPCS: 72148

== ENCOUNTER 2021-03-25 01:47 | Outpatient (CLI) | payer MEDICAID, SELFPAY ==
--- NOTE | 2021-03-25 07:30 | DI.US_ITS ---
Exam(s) US RENAL EXAM: US RENAL CLINICAL HISTORY: Check calculi,RT FLANK PAIN, R10.9. TECHNIQUE: Gutiérrez scale, color and spectral Doppler were used. COMPARISON: CT ABD PELVIS WITH CONTRAST from 06/01/2018 CR XR lumbar spine AP, LAT from 05/31/2019 CR XR lumbar spine AP, LAT from 05/31/2019 FINDINGS: Renal size in cm: Right: 10.8 left: 10.4 Echogenicity: Normal Hydronephrosis: No Cyst or mass: No Nephrolithiasis: Right kidney: 9 millimeter and 6 millimeter stones midpole. Left kidney: 8 millimet er stone inferior pole. Bladder:Suboptimally distended, not well evaluated. Prevoid vol: 32 Postvoid vol:0 Ureteral jets not visualized IMPRESSION: Bilateral renal calculi. No hydronephrosis. DATA REPOSITORY:
== END 2021-03-25 02:07 ==
PROVIDERS: PCP Nurse Practitioner Family; Visit Provider Obstetrics & Gynecology
DX: R10.31 Right lower quadrant pain (principal); N20.0 Calculus of kidney
CPT/HCPCS: 76770

== ENCOUNTER 2021-04-15 08:29 | Outpatient (CLI) | payer MEDICAID, SELFPAY ==
--- NOTE | 2021-04-15 06:00 | DI.RAD_ITS ---
Exam(s) XR PAIN CLINIC SACRIOILIAC 2V EXAM: XR PAIN CLINIC SACRIOILIAC 2V CLINICAL HISTORY: Dx: Sacroiliac Joint Dysfunction TECHNIQUE: 2D and realtime digital imaging was performed. CONTRAST MATERIAL: Refer to procedure report. COMPARISON: No exams were available for comparison FINDINGS: Fluoroscopy was provided for Dr. Bliss during the performance of a right sacroiliac joint injection. P lease refer to the procedure report for complete details. Ka,r=11.6 mGy IMPRESSION:
[2021-04-15 08:38] VITALS: BP 131/91; PULSE 74; RESP 17; TEMP 36.3; O2SAT 97
--- NOTE | 2021-04-15 09:01 | PDOC.PAIN_ITS ---
Pain Clinic Procedure Note Procedure Note Procedure Note: INTRA-ARTICULAR SI JOINT INJECTION Date of Service: April 15, 2021 Patient: Marisol Castro Provider: Zaida Bliss MD COMMENTS: right sided low back pain interferring with functional status and average pain level at least moderate, been participating in PT, was evaluated by Ms Lanie Pastrana in pain clinic and referred for a trial of right SI joint injection Pre-operative diagnosis: sacroiliac joint dysfunction Post-operative diagnosis: sacroiliac joint dysfunction Marisol Castro has been [facility] for intra- articular SI joint injection. Ms Castro was interviewed and the medical record reviewed. There were no medical, pharmacologic, radiographic or other structural contraindications to attempting fluoroscopically guided intra-articular SI joint injection. Risks and expected side effects as well as potential benefit of the procedure were reviewed with Marisol , and HER voiced concerns were addressed. The printed consent form was signed and witnessed. Standard time-out procedure was performed. Marisol was placed in the prone position on the fluoroscopy table and automated blood pressure cuff and pulse oximeter applied. The skin entry point for approaching the RIGHT sacroiliac joint was identified under the most advantageous fluoroscopic view and marked. Following thorough Chlorhexadine preparation of the skin and draping and 1% lidocaine infiltration of the skin entry point and subcutaneous tissues, a 22 gauge spinal needle was placed under fluoroscopic guidance into the RIGHT sacroiliac joint. Intra-articular placement was confirmed by a clear arthrogram resulting from the injection of 0.25ml Omnipaque 240. 1ml 1% Lidocaine and 40mg Depomedrol was injected intra- articularily with an initial reproduction of a significant component of the usual pain. The needle was flushed with 0.5 cc of 1% Lidocaine and removed without difficulty. (49 cc of Omnipaque was wasted) Marisol carson vital signs were stable throughout the procedure and were as recorded in the docflowsheet by the nursing staff. If given, dosages of intravenous drugs for anxiolysis and analgesia were documented in DEC. Follow up plans and appointments were discussed with the Marisol . Post procedure instruction was given as documented in nursing documentation and having met discharge criteria, Marisol was [facility] from the [facility]. COMMENTS: No complications. Pre-VAS score 3/10, post-VAS score 0 out of 10. F/U with Ms Zeina APRN I personally performed this entire procedure. Zaida Bliss MD ABPN-subspecialty board certification in Pain Medicine Attending Physician-Pain Management
[2021-04-15] MEDS: Omnipaque 240 MG/ML 50 ML BTL IJ (09:24)
[2021-04-15] MEDS: methylPREDNISolone ACETATE 80 MG/ML VIAL IJ (09:24)
[2021-04-15 09:30] VITALS: BP 145/93; PULSE 67; RESP 16; O2SAT 99
== END 2021-04-15 08:30 | disposition home or self-care (01) ==
LOC: PC 08:30
PROVIDERS: PCP Nurse Practitioner Family; Visit Provider Internal Medicine
DX: M53.3 Sacrococcygeal disorders, not elsewhere classified (principal)
CPT/HCPCS: 27096; 72200; J1040; Q9967

== ENCOUNTER 2021-05-02 02:46 | Outpatient (CLI) | payer MEDICAID, SELFPAY ==
--- NOTE | 2021-05-02 13:33 | DI.RAD_ITS ---
Exam(s) XR HIP RT COMPLETE AP PELVIS EXAM: XR HIP RT COMPLETE AP PELVIS CLINICAL HISTORY: right groin pain, R10.31 TECHNIQUE: COMPARISON: CR LUMBAR SPINE AP, LAT from 09/25/2016 FINDINGS: Two views were obtained. The cartilaginous joint spaces of hips appear well maintained. There is mi nimal hypertrophic spurring of the acetabulum the right. No other bony or soft tissue seen. IMPRESSION: Minimal degenerative marginal osteophyte formation of the right acetabulum. No other abnormality see n. RADIATION DOSE DELIVERED: Total DLP
== END 2021-05-02 03:06 ==
PROVIDERS: PCP Nurse Practitioner Family; Visit Provider Nurse Practitioner Family
DX: M25.751 Osteophyte, right hip (principal); R10.31 Right lower quadrant pain
CPT/HCPCS: 73502

== ENCOUNTER 2021-06-22 12:03 | Emergency (ER) | payer MEDICAID, SELFPAY ==
[2021-06-22 12:29] VITALS: BP 134/88; PULSE 68; RESP 18; TEMP 36.7; O2SAT 97
[2021-06-22 12:32] LABS: Bilirubin Negative (Negative); Blood Negative (Negative); Clarity Sl Cloudy (Clear); Glucose Negative (Negative); Ketones Negative (Negative); Leukocyte Esterase Negative (Negative); Nitrite Negative (Negative); Specific Gravity >= 1.030 (1.005-1.025); Urobilinogen 0.2 EU/dL (Up TO 0.2); pH 5.5 (5-8)
--- NOTE | 2021-06-22 12:39 | ED.GENADUL_ITS ---
Discharge Plan Disposition Patient Disposition: HOME Condition: Stable Discharge Details Clinical Impression: Abdominal discomfort, Flank pain Primary Care Provider: Radha Shea ED Provider: Bernadette Vazquez Home Meds and New Rx's Prescriptions: Continued buspirone 10 mg tablet 10 - 20 mg PO TID Qty: 420 RF: 4 progesterone micronized [Prometrium] 100 mg capsule 200 mg PO QAM 90 Days Qty: 180 RF: 3 sumatriptan succinate 50 mg tablet 50 mg PO Q2H PRN (Reason: migraine headache) Qty: 60 RF: 1 cyclobenzaprine 10 mg tablet 10 mg PO HS PRN (Reason: back pain) Qty: 60 RF: 2 sertraline [Zoloft] 100 mg tablet 200 mg PO DAILY Qty: 180 RF: 4 acetaminophen 500 mg capsule 1,000 mg PO HS PRNRF: 0 meloxicam 15 mg tablet 15 mg PO DAILY PRN (Reason: back pain) 30 Days Qty: 30 RF: 5 Discharge Instructions Instructions: Flank Pain (ED) Additional Instructions: Labs and imaging are reassuring here today. You do have kidney stones but again, these are nonobstructing and should not be causing any discomfort. You also have a cyst in your pelvis but again, I do not believe that this is likely associated discomfort. Your vaginal pathology screening is pending. I will call you with any abnormal results. Please keep your appointment tomorrow with Dr. Elizondo for reevaluation. If you develop fever/chills, increased pain, in ability to hydrate or other new/worsening symptoms please seek care urgently once again. Referrals: Radha Shea NP [Primary Care Provider] - Layne Elizondo DO [OSTEOPATHIC DOCTOR] - Discharge Data Discharge Date/Time-TO BE ENTERED AT DEPARTURE: 06/22/21 16:03 Medical Decision Making Patient is a pleasant 41-year-old female presents today with chief complaint of right-sided CVA tenderness. She reports began approximate 2 hours prior to arrival. Reports that it feels similar to when she had stones historically. She denies any fevers or chills. No dysuria, increased frequency, urgency or hematuria. Patient also reports that she is been having some low central abdominal pain she states has been present for the past 4 days. Also tells me discomfort in epigastric area. She states that she had nausea since the onset of CVA tenderness but not had any prior to that. Has been having normal bowel movements which she states is irregular but her baseline. [facility] for some of her abdominal discomfort. She reports that she has an appointment with them tomorrow. She denies any vaginal discharge. On exam, patient appears nontoxic. Vital signs are stable. She is afebrile. She does have CVA tenderness with percussion. No epigastric pain is elicited with palpation but she does have some low central abdominal comfort. No peritoneal findings. Primarily concern at this time for recurrence of her nephrolithiasis. She did have an ultrasound in March which did show bilateral kidney stones. Also consider UTI although patient denies endorsing any dysuria. Will obtain urinalysis. Will give Toradol to help with discomfort. Her low central pain seems to be primarily the bladder. Again, consider UTI. Considered vaginal discomfort. She reports that she has chronic issues with bacterial vaginosis. Given her gradual the pain is in her description as well as location, I do not believe her history is consistent with ovarian torsion. Past medical history is pertinent for anxiety, endometriosis, hyperlipidemia, PCOS, depression, GERD. Past surgical history is pertinent for tubal ligation, endometrial ablation. CT reviewed by radiologist: FINDINGS: Liver: Normal. No mass. Gallbladder and bile ducts: Normal. No calcified stones. No ductal dilation. Pancreas: Normal. No ductal dilation. Spleen: Normal. No splenomegaly. Adrenal glands: Normal. No mass. Kidneys and ureters: There are multiple foci of nephrolithiasis in the bilateral kidneys. Largest on the right measures up to 9 mm in the right lower pole. Largest on the left measures up to 7 mm in the lower pole. Stomach and bowel: No obstruction. No mucosal thickening. Appendix: No evidence of appendicitis. Intraperitoneal space: Unremarkable. No free air. No significant fluid collection. Vasculature: No abdominal aortic aneurysm. Lymph nodes: No enlarged lymph nodes. Urinary bladder: Unremarkable as visualized. Reproductive: There is a 3.4 cm cyst in the left adnexa. Bones/joints: No acute fracture. Stable 0 scoliotic curve in the lumbar spine centered at L3. Soft tissues: Unremarkable. IMPRESSION: 1. No acute abdominal abnormality. 2. Nonobstructive nephrolithiasis of the bilateral kidneys. No obstructive ureteral stone or hydronephrosis is identified. FINDINGS: Liver: Normal. No mass. Gallbladder and bile ducts: Normal. No calcified stones. No ductal dilation. Pancreas: Normal. No ductal dilation. Spleen: Normal. No splenomegaly. Adrenal glands: Normal. No mass. Kidneys and ureters: There is bilateral nephrolithiasis. No hydronephrosis. Largest stone in the right kidney is in the lower pole measuring up to 1.0 cm. The largest stone in the left kidney measures up to 0.6 cm in the left mid to lower pole. Stomach and bowel: No obstruction. No mucosal thickening. Appendix: No evidence of appendicitis. Intraperitoneal space: No free air. No significant fluid collection. Vasculature: No abdominal aortic aneurysm. Lymph nodes: No enlarged lymph nodes. Urinary bladder: Unremarkable as visualized. Reproductive: There is a 3.3 x 2.8 cm x 3.1 cm CC cyst in the left adnexa. Bones/joints: There is mild circumferential disc bulge at L5-S1 without significant central canal stenosis. Soft tissues: Unremarkable. IMPRESSION: 1. No acute abdominal abnormality. 2. Nonobstructive bilateral nephrolithiasis. Vaginal exam was performed. Appreciate any significant vaginal discharge. No cervical motion tenderness. No pain to palpation about the uterus or adnexa du ring bimanual exam. Labs reviewed. No leukocytosis. Stable H&H. No significant normalities on CMP. Urine showed elevated specific gravity but no hematuria or evidence to suggest infection. Discussed the findings with the patient. Since having the Toradol she initially arrived, her symptoms completely subsided. She had initially felt that the right CVA tenderness was the same pain she experienced in the past with nephrolithiasis. Questioning if she may have passed a stone. I encouraged hydration. She does have an appointment tomorrow with her [facility]ER. I did encourage that she keep his appointment to discuss these the ovarian cyst as well as any continued discomfort that she may have. Strict return precautions were discussed. All of her questions and concerns were addressed and she is in agreement with this plan. HPI General Mode of arrival: ambulatory . Date/Time Provider Initiated Documentation: 06/22/21 12:13 . Limitations to Documentation: no limitations . Information obtained by: patient, RN notes reviewed and old records reviewed . History of Present Illness 41 year old F presents to the emergency department with the chief complaint of Right flank pain, described as moderate, with intensity rated at 7. Quality is described as aching, and is localized to the back. Patient reports no radiation. Patient started experiencing this hour(s) and it has been constant. No relieving factors improve symptom(s), No exacerbating factors reported . Patient notes nausea/vomiting; denies chest pain, cough, fever/chills, rash, shortness of breath and weakness. Patient did receive the following treatments prior to arrival, none Related Data Home Medications Medication Instructions Recorded Confirmed buspirone 10 mg tablet 10 - 20 mg PO TID #420 tab-cap 07/18/20 06/22/21 cyclobenzaprine 10 mg tablet 10 mg PO HS PRN #60 tab 01/17/21 06/22/21 sertraline 100 mg tablet 200 mg PO DAILY #180 tab 01/17/21 06/22/21 sumatriptan succinate 50 mg tablet 50 mg PO Q2H PRN #60 tab 01/17/21 06/22/21 acetaminophen 500 mg capsule 1,000 mg PO HS PRN cap 02/19/21 06/22/21 meloxicam 15 mg tablet 15 mg PO DAILY PRN 30 Days #30 tab 02/19/21 06/22/21 progesterone micronized 100 mg 200 mg PO QAM 90 Days #180 cap 03/04/21 06/22/21 capsule Previous Rx's Medication Instructions Recorded buspirone 10 mg tablet 10 - 20 mg PO TID #420 tab-cap 07/18/20 cyclobenzaprine 10 mg tablet 10 mg PO HS PRN #60 tab 01/17/21 sertraline 100 mg tablet 200 mg PO DAILY #180 tab 01/17/21 sumatriptan succinate 50 mg tablet 50 mg PO Q2H PRN #60 tab 01/17/21 meloxicam 15 mg tablet 15 mg PO DAILY PRN 30 Days #30 tab 02/19/21 progesterone micronized 100 mg 200 mg PO QAM 90 Days #180 cap 03/04/21 capsule Allergies Allergy/AdvReac Type Severity Reaction Status Date / Time Penicillins Allergy Unknown Verified 06/22/21 12:43 azithromycin AdvReac Severe Syncopal Verified 06/22/21 12:43 episode bupropion AdvReac Intermediate IRRITABILITY; Verified 06/22/21 12:43 ANGER erythromycin base AdvReac Intermediate Nausea Verified 06/22/21 12:43 [Erythromycin Base] General Stated Complaint: FlankPain SARABJIT: 3 Review of Systems Constitutional Constitutional: Reports as per HPI, Denies chills, Denies fatigue, Denies fever(s) and Denies headache(s) ENT Ears, Nose, Mouth, and Throat: Denies headache(s) Cardiovascular Cardiovascular: Reports as per HPI, Denies chest pain and Denies dyspnea Respiratory Respiratory: Reports as per HPI, Denies cough and Denies dyspnea Gastrointestinal Gastrointestinal: Reports as per HPI Genitourinary Genitourinary: Reports as per HPI Musculoskeletal Musculoskeletal: Reports as per HPI Neurologic Neurologic: Denies headache(s) Endocrine Endocrine: Denies fatigue [facility] Medical History Cigarette smoker Depressive disorder Gastroesophageal reflux disease without esophagitis Generalized anxiety disorder Hyperlipidemia Obesity PCOS (polycystic ovarian syndrome) Surgical History History of bilateral ligation of fallopian tubes History of endometrial ablation Hx of bursectomy (02/04/15) Excision of chronically inflamed prepatellar bursa, left knee. S/P excision of ganglion cyst (03/20/14) Of right ankle Family History Mother No problems noted. Father No problems noted. Brother No problems noted. Daughter No problems noted. Son Asthma Maternal Grandfather No problems noted. Maternal Grandmother Essential hypertension Hyperlipidemia Paternal Grandfather No problems noted. Paternal Grandmother No problems noted. 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 Pets and animals: Yes Pets and animals: cat(s) and bird(s) Sexually active: Yes Do you think of yourself as: straight/heterosexual Current gender identity: male What is your relationship status?: How often do you talk on the phone with friends or family?: three or more times per week How often do you get together with friends or relatives?: decline to answer How often do you attend mosque or yazdanism services?: decline to answer Do you belong to any clubs or organized social groups?: no Panel score (0-1 are the most socially isolated patients): 1 What type of physical activity do you participate in: none and independent ambulation Duration: decline to answer Frequency: daily Kailee/Catholic: None Special kailee needs: No Seatbelt use: sometimes Helmet use: Yes Helmet use: sometimes Drive intox or ride w/intox logging truck driver: No Do you feel safe at home: Yes Do you feel safe in your relationship?: Yes Female Reproductive History Menstrual control method: permanent sterilization History History 2 Para 2 Hx # Term Pregnancies Multiple births Hx # Pregnancies Ectopic pregnancies AB induced Hx Number of Living Children 2 AB spontaneous Exam Const General: cooperative, healthy appearing, comfortable, no acute distress and well developed Nutritional Appearance: well nourished and overweight Orientation: alert and awake HENMT Mouth: moist mucous membranes Resp Effort & Inspection: normal respiratory effort and no respiratory distress Auscultation: clear to auscultation bilaterally, no rales, no rhonchi and no wheezes Cardio Rate: regular rate Rhythm: regular rhythm Heart Sounds: S1 normal and S2 normal GI Inspection: normal to inspection, no edema and non-distended Palpation: soft, no hepatosplenomegaly, no guarding, no hernias, no pulsatile masses and tender (Central pain over her bladder) in the epigastrum Percussion: normal to percussion Auscultation: normal bowel sounds External Female Exam: normal external appearance Speculum Exam - Vagina: normal appearance of the vagina, normal vaginal discharge and nontender Speculum Exam - Cervix: normal appearance of the cervix and nontender Bimanual Exam- Vagina & Uterus: normal bimanual exam, normal palpation, No ten cristal and no cervical motion tenderness Bimanual Exam- Adnexa, other: no masses and no tenderness Back/Spine/Pelvis Back: CVA tenderness (right) Skin General skin exam: no rashes or lesions noted Neuro General: patient alert and patient awake Cognition: normal cognition Speech: speech normal Gait: normal gait Psych Appearance: grossly normal and well kempt Mental Status: mental status grossly normal Speech and Movement: speech and movement normal Course Vital Signs Vital signs: Vital Signs Temperature 36.7 C 06/22/21 12:29 Pulse 68 06/22/21 12:29 Respiratory Rate 18 06/22/21 12:29 Blood Pressure 134/88 06/22/21 12:29 Pulse Oximetry 97 06/22/21 12:29 Temperature 36.7 C 06/22/21 12:29 Temperature Source Temporal Artery Scan 06/22/21 12:29 Pulse 68 06/22/21 12:29 Respiratory Rate 18 06/22/21 12:29 Respiratory Effort Non-Labored 06/22/21 12:34 Blood Pressure 134/88 06/22/21 12:29 Blood Pressure Position Supine 06/22/21 12:29 Pulse Oximetry 97 06/22/21 12:29 Oxygen Delivery Method Room Air 06/22/21 12:29 Oxygen Flow Rate 0 06/22/21 12:29 Pain Level 7 06/22/21 12:35 Lab/Test Results Lab/Test Results: Laboratory Tests Range/Units 06/22/21 12:26 Urine Color (Yellow) Yellow Urine Clarity (Clear) Sl Cloudy Urine pH (5-8) 5.5 Ur Specific Jbphh (1.005-1.025) >= 1.030 H Urine Protein (Negative) mg/dL Negative Urine Ketones (Negative) mg/dL Negative Urine Blood (Negative) Negative Urine Nitrite (Negative) Negative Urine Bilirubin (Negative) Negative Urine Urobilinogen (Up TO 0.2) EU/dL 0.2 Ur Leukocyte Esterase (Negative) Negative Urine Glucose (Negative) mg/dL Negative
[2021-06-22] MEDS: Ondansetron 4 MG/2 ML VIAL IVP (12:59)
[2021-06-22] MEDS: Normal Saline 1,000 ML 1000 ML IV (12:59)
[2021-06-22] MEDS: Ketorolac 15 MG/ML VIAL IVP (12:59)
--- NOTE | 2021-06-22 13:00 | DI.CT_ITS ---
Exam(s) CT RENAL COLIC WO EXAM: CT RENAL COLIC WO CLINICAL HISTORY: righ flank cassandra. TECHNIQUE: Imaging Protocol: Axial computed tomography images with coronal and sagittal reformatted images were created and reviewed CONTRAST MATERIAL: Intravenous: none Oral: None COMPARISON: CT ABD PELVIS WITH CONTRAST from 06/01/2018 FINDINGS: VISUALIZED LUNG BASES: No nodules nor pleural effusions evident. ABDOMEN: There is no ascites. LIVER: There are no obvious focal hepatic lesions evident of this noninfused study. GALLBLADDER/BILIARY: No obvious gallbladder pathology. CBD is not dilated. PANCREAS: No evidence of pancreatic mass nor dilatation of the pancreatic duct. SPLEEN: Spleen is not enlarged. No obvious intrasplenic lesions. ADRENALS: There are no significant adrenal masses. KIDNEYS: There are calculi in both kidneys. Ranging from punctate up to 8 millimeters in the right k idney and punctate up to 4 millimeters in the left kidney. No hydronephrosis on either side. No cys t or solid renal masses.. ABDOMINAL AORTA: Abdominal aorta is not enlarged. LYMPH NODES: There is no retroperitoneal nor paraaortic adenopathy. ABDOMINAL WALL: No evidence of significant anterior abdominal wall hernia. GI: There is no evidence of bowel obstruction, free air, nor abscess. PELVIS: LYMPH NODES: There is no intrapelvic nor inguinal adenopathy. GI: No evidence of appendicitis.No evidence of sigmoid diverticulitis. URINARY BLADDER: No calculi nor obvious masses evident REPRODUCTIVE: Uterus size is normal. There is a cyst in the left ovary which measures 3.2 by 2.9 cm, not associated with surrounding fluid nor fluid in the cul-de-sac. Right ovary is not identified. OSSEOUS: No significant osseous lesions. IMPRESSION: 1. Bilateral nephrolithiasis but no calculi in the ureters. No hydronephrosis nor hydroureter. No c alculi in the nondistended urinary bladder. 2. A cyst in left ovary measuring 32 x 29 millimeters. 3. No free fluid RADIATION DOSE DELIVERED: 1,047.25mGy.cm Total DLP DATA REPOSITORY: All CT scans at this facility are submitted to the National Radiology Data Registry (NRDR) Dose Index Registry (DIR) with the [employer] (A[employer]). RADIATION OPTIMIZATION: All CT scans at this facility use at least one of these dose optimization te chniques: automated exposure control; mA and/or kV adjustment per patient size (includes targeted exa ms where dose is matched to clinical indication); or iterative reconstruction.
[2021-06-22 13:09] LABS: Abs Immature Grans 0.03 10^3/uL (0.0-0.06); Absolute Basophil Count 0.04 10^3/uL (0.0-0.2); Absolute Eosinophil Count 0.08 10^3/uL (0.0-0.7); Absolute Lymphocyte Count 2.58 10^3/uL (1.2-3.4); Absolute Monocyte Count 0.67 10^3/uL (0.1-0.8); Absolute Neutrophil Count 5.45 10^3/uL (1.2-6.7); Basophils % 0.5; Eosinophils % 0.9; HGB 13.5 g/dL (11.2-15.7); Immature Grans % 0.3; Lymphocytes % 29.2; MCH 29.9 pg (27.0-33.0); MCHC 32.9 % (32.0-36.0); MCV 90.9 fL (80-95); Monocytes % 7.6; Neutrophils % 61.5; Nucleated RBC 0 %; Platelet Count 249 10^3/uL (130-400); RBC 4.51 10^6/uL (3.93-5.22); RDW 12.2 % (11.7-14.6); RDW-SD 40.9 fL; WBC 8.85 10^3/uL (4.4-10.8)
--- NOTE | 2021-06-22 13:15 | DI.CT_ITS ---
Exam(s) CT ABDOMEN PELVIS W EXAM: CT ABDOMEN PELVIS W CLINICAL HISTORY: low abdominal pain, epigastric pain. TECHNIQUE: Imaging Protocol: Axial computed tomography images with coronal and sagittal reformatted images were created and reviewed CONTRAST MATERIAL: Intravenous: Omnipaque 100cc Oral: None COMPARISON: CT CT RENAL COLIC WO from 06/22/2021 FINDINGS: VISUALIZED LUNG BASES: No nodules nor pleural effusions evident. ABDOMEN: There is no ascites. LIVER: There are no focal hepatic lesions evident . GALLBLADDER/BILIARY: No obvious gallbladder pathology. CBD is not dilated. PANCREAS: No evidence of pancreatic mass nor dilatation of the pancreatic duct. SPLEEN: Spleen is not enlarged. No obvious intrasplenic lesions. Splenic and portal veins are paten t. ADRENALS: There are no significant adrenal masses. KIDNEYS:No cysts evident. No solid renal masses. There are calculi noted in both kidneys ranging fro m punctate up to 7 millimeters in the right kidney and punctate up to 3 millimeters in left kidney. There are no calculi in the nondistended ureters nor within the urinary bladder.. ABDOMINAL AORTA: Abdominal aorta is not enlarged. LYMPH NODES:There is no retroperitineal nor paraaortic adenopathy. ABDOMINAL WALL: No evidence of significant anterior abdominal wall hernia. GI: There is no evidence of bowel obstruction, free air, nor abscess. PELVIS: GI: No evidence of appendicitis.No evidence of sigmoid diverticulitis. LYMPH NODES: There is no intrapelvic nor inguinal adenopathy. REPRODUCTIVE: Uterus size is normal. There is a cyst in the left ovary which measures 3.5 by 2.9 cm. Right ovary is not identified. No free fluid in the pelvis. URINARY BLADDER: No calculi nor obvious masses evident OSSEOUS: No significant osseous lesions. IMPRESSION: 1. Bilateral nephrolithiasis. No calculi seen in the nondilated ureters nor within the nondistended urinary bladder. 2. There is a cyst in the left ovary measuring 35 x 29 millimeters. 3. No free fluid. 4. RADIATION DOSE DELIVERED: 1,340.21mGy.cm Total DLP DATA REPOSITORY: All CT scans at this facility are submitted to the National Radiology Data Registry (NRDR) Dose Index Registry (DIR) with the [employer] (ACR). RADIATION OPTIMIZATION: All CT scans at this facility use at least one of these dose optimization te chniques: automated exposure control; mA and/or kV adjustment per patient size (includes targeted exa ms where dose is matched to clinical indication); or iterative reconstruction.
[2021-06-22 13:25] LABS: ALT 17 U/L (14-59); AST 10 U/L (15-37); Albumin 3.7 g/dL (3.4-5.0); Alkaline Phosphatase 106 U/L (46-116); BUN 12 mg/dL (7-18); Bilirubin, Total 0.5 mg/dL (0.2-1.0); CREATININE 0.7 mg/dL (0.55-1.02); Calcium 8.8 mg/dL (8.5-10.1); Chloride 104 mmol/L (98-107); Glucose 85 mg/dL (74-106); Potassium 3.9 mmol/L (3.5-5.1); Sodium 138 mmol/L (136-145); Total Protein 7.2 g/dL (6.4-8.2)
--- NOTE | 2021-06-22 14:29 | DI.VRAD_ITS ---
PROCEDURE INFORMATION: Exam: CT Abdomen And Pelvis Without Contrast Exam date and time: 06/22/2021 1:14 PM Age: 41 years old Clinical indication: Other: Right flank pain TECHNIQUE: Imaging protocol: Computed tomography of the abdomen and pelvis without contrast. COMPARISON: CT ABD PELVIS WITH CONTRAST 06/01/2018 5:03 PM FINDINGS: Liver: Normal. No mass. Gallbladder and bile ducts: Normal. No calcified stones. No ductal dilation. Pancreas: Normal. No ductal dilation. Spleen: Normal. No splenomegaly. Adrenal glands: Normal. No mass. Kidneys and ureters: There are multiple foci of nephrolithiasis in the bilateral kidneys. Largest on the right measures up to 9 mm in the right lower pole. Largest on the left measures up to 7 mm in the lower pole. Stomach and bowel: No obstruction. No mucosal thickening. Appendix: No evidence of appendicitis. Intraperitoneal space: Unremarkable. No free air. No significant fluid collection. Vasculature: No abdominal aortic aneurysm. Lymph nodes: No enlarged lymph nodes. Urinary bladder: Unremarkable as visualized. Reproductive: There is a 3.4 cm cyst in the left adnexa. Bones/joints: No acute fracture. Stable 0 scoliotic curve in the lumbar spine centered at L3. Soft tissues: Unremarkable. IMPRESSION: 1. No acute abdominal abnormality. 2. Nonobstructive nephrolithiasis of the bilateral kidneys. No obstructive ureteral stone or hydronephrosis is identified. Dictated and Authenticated by: Ponce Mathias MD. Ordering:MALIKA Fleming MD
[2021-06-22] MEDS: Omnipaque 350 MG/ML 100 ML BTL IV (15:05)
--- NOTE | 2021-06-22 15:42 | DI.VRAD_ITS ---
PROCEDURE INFORMATION: Exam: CT Abdomen And Pelvis With Contrast Exam date and time: 06/22/2021 1:29 PM Age: 41 years old Clinical indication: Other: Low abdominal pain, epigastric pain TECHNIQUE: Imaging protocol: Computed tomography of the abdomen and pelvis with contrast. Contrast material: OMNIPAQUE 350; Contrast volume: 100 ml; Contrast route: INTRAVENOUS (IV); COMPARISON: CT RENAL COLIC WO 06/22/2021 2:13 PM FINDINGS: Liver: Normal. No mass. Gallbladder and bile ducts: Normal. No calcified stones. No ductal dilation. Pancreas: Normal. No ductal dilation. Spleen: Normal. No splenomegaly. Adrenal glands: Normal. No mass. Kidneys and ureters: There is bilateral nephrolithiasis. No hydronephrosis. Largest stone in the right kidney is in the lower pole measuring up to 1.0 cm. The largest stone in the left kidney measures up to 0.6 cm in the left mid to lower pole. Stomach and bowel: No obstruction. No mucosal thickening. Appendix: No evidence of appendicitis. Intraperitoneal space: No free air. No significant fluid collection. Vasculature: No abdominal aortic aneurysm. Lymph nodes: No enlarged lymph nodes. Urinary bladder: Unremarkable as visualized. Reproductive: There is a 3.3 x 2.8 cm x 3.1 cm CC cyst in the left adnexa. Bones/joints: There is mild circumferential disc bulge at L5-S1 without significant central canal stenosis. Soft tissues: Unremarkable. IMPRESSION: 1. No acute abdominal abnormality. 2. Nonobstructive bilateral nephrolithiasis. Dictated and Authenticated by: Ponce Mathias MD. Ordering:MALIKA Fleming MD
[2021-06-22 15:53] VITALS: BP 139/92; PULSE 67; TEMP 36.9; O2SAT 97
[2021-06-22 16:05] VITALS: BP 139/92; PULSE 67; RESP 18; TEMP 36.9; O2SAT 97
== END 2021-06-22 16:03 | disposition home or self-care (01) ==
PROVIDERS: Emergency Provider Physician Assistant; PCP Nurse Practitioner Family
DX: M54.89 Other dorsalgia (principal); R10.84 Generalized abdominal pain
CPT/HCPCS: 36415; 80053; 96361; 96374; 96375; 99285; 74176; 74177; 81003; 85025; 87480; 87510; 87660; 99284; J1885; J2405; J3490

== ENCOUNTER 2022-05-29 15:05 | Outpatient (CLI) | payer MEDICAID, SELFPAY ==
--- NOTE | 2022-05-29 15:00 | RT.EKG_ITS ---
APPROVED REPORT Exam: Resting ECG Reason for Exam: chest pressure Patient Location: O HR:72 bpm ECG Measurements Heart Rate 72 AXIS HI 177 P 55 QRSd 83 QRS 4 QT 394 T 30 QTc 432 Conclusion Sinus rhythm...normal P axis, V-rate 60- 99 Normal Electrocardiogram
== END 2022-05-29 15:06 | disposition home or self-care (01) ==
LOC: DI.CM 15:06
PROVIDERS: PCP Nurse Practitioner Family; Visit Provider Nurse Practitioner Family
DX: R07.89 Other chest pain (principal)
CPT/HCPCS: 93010

== ENCOUNTER → 2022-06-04 02:20 | Outpatient (CLI) | payer MEDICAID, SELFPAY ==
--- NOTE | 2022-06-04 06:45 | DI.US_ITS ---
Exam(s) US PELVIS TRANSVAGINAL EXAM: US PELVIS TRANSVAGINAL CLINICAL HISTORY: re-check ovaries,lt ovarian cyst, n83.202 TECHNIQUE: Transabdominal and transvaginal imaging was performed using standard protocol. COMPARISON: CT CT ABDOMEN PELVIS W from 06/22/2021 FINDINGS: KIDNEYS: Kidneys are symmetric in size. Multiple bilateral renal calculi. No evidence of hydronephro sis. No renal mass or cyst identified. UTERUS: Anteverted. 5 x 3.4 x 3.9 cm. Endometrium: Not well seen. Myometrium: Unremarkable. Cervix: Unremarkable. OVARIES: Right: Cyst or mass: None. Left: Cyst or mass: None. DOPPLER: Color: Symmetric and uniform flow to both ovaries. No hyperemia. Duplex: Normal ovarian arterial waveforms visualized. CUL-DE-SAC: Free fluid: None. IMPRESSION: 1. Normal sized uterus. Endometrial stripe not visualized. 2. Unremarkable bilateral ovaries. No evidence of cyst or mass. 3. Bilateral nephrolithiasis. No evidence of hydronephrosis. DATA REPOSITORY:
== END ==
PROVIDERS: PCP Nurse Practitioner Family; Visit Provider Obstetrics & Gynecology
DX: N83.202 Unspecified ovarian cyst, left side (principal); N20.0 Calculus of kidney
CPT/HCPCS: 76830; 76856

== ENCOUNTER 2022-09-25 15:35 | Outpatient (REF) | payer MEDICAID, SELFPAY | END 2022-09-25 15:36 | disposition home or self-care (01) | LOC: LBN 15:35 | PROVIDERS: PCP Nurse Practitioner Family; Visit Provider Nurse Practitioner Family | DX: N76.0 Acute vaginitis (principal) | CPT/HCPCS: 87480; 87510; 87660 ==

== ENCOUNTER 2022-11-23 10:29 | Emergency (ER) | payer MEDICAID, SELFPAY ==
[2022-11-23] VITALS (122 sets, daily range): BP systolic 128–162; BP diastolic 79–101; PULSE 56–84; RESP 4–34; TEMP 36.9; O2SAT 98
--- NOTE | 2022-11-23 10:30 | RT.EKG_ITS ---
APPROVED REPORT Exam: Resting ECG Reason for Exam: chest pain Patient Location: E HR:63 bpm ECG Measurements Heart Rate 63 AXIS MN 153 P -38 QRSd 90 QRS -10 QT 402 T 30 QTc 414 Conclusion Sinus rhythm...normal P axis, V-rate 60- 99
--- NOTE | 2022-11-23 10:45 | DI.RAD_ITS ---
Exam(s) XR PORTABLE CHEST AP EXAM: XR PORTABLE CHEST AP CLINICAL HISTORY: COugh, PUI TECHNIQUE: 2D digital imaging was performed. COMPARISON: CR XR PORTABLE CHEST AP from 12/10/2020 FINDINGS: Leads overlie the chest. LUNGS: Clear. No pleural abnormality seen. HEART: Normal size. AORTA: Normal diameter. BONES: Unremarkable for age. Soft tissues: Unremarkable. IMPRESSION: No acute findings. DATA REPOSITORY: RADIATION DOSE DELIVERED:
--- NOTE | 2022-11-23 10:52 | NUR.NOTE ---
Nursing Note: pt states on Wednesday she began having chest tightness, ear ache, cough, and green phlegm. pt notes her chest tightness is intermittent. pt tested positive for covid on Wednesday. IV placed, labs drawn and pt place on cardiac rehabilitation specialist.
--- NOTE | 2022-11-23 11:05 | ED.GENADUL_ITS ---
Discharge Plan Disposition Patient Disposition: Home Condition: Stable Discharge Details Clinical Impression: Viral syndrome, COVID-19, Acute bronchospasm Primary Care Provider: Radha Shea ED Provider: Ken Smith Home Meds and New Rx's Prescriptions: New prednisone 50 mg tablet 50 mg PO DAILY 5 Days Qty: 5 0RF Continued progesterone micronized [Prometrium] 100 mg capsule 200 mg PO QAM 90 Days Qty: 180 3RF acetaminophen 500 mg capsule 1,000 mg PO HS PRN sertraline [Zoloft] 100 mg tablet 200 mg PO DAILY Qty: 180 4RF sumatriptan succinate 50 mg tablet 50 mg PO Q2H PRN (Reason: migraine headache) Qty: 60 1RF Rx Instructions: Take 1 tablet with ibuprofen at onset of headache, if no improvement, take another in 2hrs buspirone 10 mg tablet 10 - 20 mg PO TID Qty: 420 4RF Rx Instructions: Take 2 tabs in the AM, 2 tabs in the afternoon and 1 tab at bedtime omeprazole magnesium 20 mg tablet,delayed release (DR/EC) 20 mg PO DAILY Qty: 90 3RF methocarbamol 750 mg tablet 750 mg PO TID PRN (Reason: prn muscle/back pain) Qty: 90 2RF ibuprofen 800 mg tablet 800 mg PO Q8H PRN (Reason: pain) Qty: 90 2RF meloxicam 15 mg tablet 15 mg PO DAILY PRN (Reason: pain) Qty: 90 0RF fluconazole [Diflucan] 150 mg tablet 150 mg PO ONCE Qty: 2 0RF Rx Instructions: Administer 1 tab once. If symptoms persist may repeat in 3 days Discharge Instructions Instructions: Viral Syndrome (ED), Bronchospasm (ED) Additional Instructions: Home to rest today. Albuterol 1 to 2 puffs every 4 hours if needed for cough or tightness of the chest. Take prednisone as prescribed once daily until finished. Off work this week. Daily vitamin C supplement will aid in your speeding of recovery. Return to ER for any acute concerns Stand Alone Forms: Work Release Medical Decision Making 42-year-old female presents from home. She has had 2-1/2 days of upper respiratory illness with cough, congestion, a slight wheeze and shortness of breath. She has not had any significant chest pain but does describe some anterior chest tightness. Home COVID test was initially negative and on day 2 of illness yesterday was positive. She now presents for evaluation. Patient arrives a slight hypertension. She is afebrile and oxygenating normally. Her exam does reveal bilateral end expiratory wheezing. Highest on the differential diagnosis would be the patient's self diagnosed COVID 19 viral illness. Must exclude pneumonia or bronchitis. She has a component of bronchospasm that is likely reactive airway disease/early COPD. Additionally, she takes oral contraceptives and with her chest tightness would consider PE. Laboratories reveal a normal CBC, reassuring chemistry is a slightly low potassium of 3.3 and magnesium of 1.7. Troponin negative. The D-dimer is elevated at 527. Magnesium was supplemented in the emergency department. Chest x-ray unremarkable. Patient was referred for CT imaging to rule out PE given the elevated D-dimer. CT of the chest was unremarkable. Per patient improved. She responded well to DuoNeb therapy. She does have a component of bronchospasm and viral syndrome. We will treat her with a burst of prednisone. We discussed the indications to consider a course of Paxlovid as well as the necessity of stopping her oral hormone replacement therapy and buspirone. The patient stated she wished to continue these medications and therefore we decided against the use of Paxlovid. Patient was dispensed an albuterol inhaler. She felt improved and better. She is stable and appropriate for discharge to home. [facility] General Mode of arrival: ambulatory . Date/Time Provider Initiated Documentation: 11/23/22 10:30 . Limitations to Documentation: no limitations . Information obtained by: patient . History of Present Illness 42 year old F presents to the emergency department with the chief complaint of Chest tightness, cough, fever, positive COVID at home, described as moderate, Quality is described as dull, and is localized to the chest. Patient reports no radiation. Patient started experiencing this day(s) and it has been intermittent. No relieving factors improve symptom(s), No exacerbating factors reported . Patient notes cough and shortness of breath; denies fever/chills. Patient did receive the following treatments prior to arrival, none Related Data Home Medications Medication Instructions Recorded Confirmed acetaminophen 500 mg capsule 1,000 mg PO HS PRN 02/19/21 11/23/22 ibuprofen 800 mg tablet 800 mg PO Q8H PRN pain #90 tabs 07/09/21 11/23/22 methocarbamol 750 mg tablet 750 mg PO TID PRN prn muscle/back 07/09/21 11/23/22 pain #90 tabs buspirone 10 mg tablet 10 - 20 mg PO TID #420 tab-caps 01/12/22 11/23/22 sertraline 100 mg tablet (Zoloft) 200 mg PO DAILY #180 tabs 01/12/22 11/23/22 sumatriptan succinate 50 mg tablet 50 mg PO Q2H PRN migraine headache 01/12/22 11/23/22 #60 tabs progesterone micronized 100 mg 200 mg PO QAM 90 days #180 caps 03/26/22 11/23/22 capsule (Prometrium) omeprazole magnesium 20 mg 20 mg PO DAILY #90 tabs 05/29/22 11/23/22 tablet,delayed release meloxicam 15 mg tablet 15 mg PO DAILY PRN pain #90 tabs 08/19/22 11/23/22 fluconazole 150 mg tablet 150 mg PO ONCE #2 tabs 09/26/22 11/23/22 (Diflucan) prednisone 50 mg tablet 50 mg PO DAILY 5 days #5 tabs 11/23/22 Previous Rx's Medication Instructions Recorded ibuprofen 800 mg tablet 800 mg PO Q8H PRN pain #90 tabs 07/09/21 methocarbamol 750 mg tablet 750 mg PO TID PRN prn muscle/back 07/09/21 pain #90 tabs buspirone 10 mg tablet 10 - 20 mg PO TID #420 tab-caps 01/12/22 sertraline 100 mg tablet (Zoloft) 200 mg PO DAILY #180 tabs 01/12/22 sumatriptan succinate 50 mg tablet 50 mg PO Q2H PRN migraine headache 01/12/22 #60 tabs progesterone micronized 100 mg 200 mg PO QAM 90 days #180 caps 03/26/22 capsule (Prometrium) omeprazole magnesium 20 mg 20 mg PO DAILY #90 tabs 05/29/22 tablet,delayed release meloxicam 15 mg tablet 15 mg PO DAILY PRN pain #90 tabs 08/19/22 fluconazole 150 mg tablet 150 mg PO ONCE #2 tabs 09/26/22 (Diflucan) prednisone 50 mg tablet 50 mg PO DAILY 5 days #5 tabs 11/23/22 Allergies Allergy/AdvReac Type Severity Reaction Status Date / Time Penicillins Allergy Unknown Verified 11/23/22 10:46 azithromycin AdvReac Severe Syncopal Verified 11/23/22 10:46 episode bupropion AdvReac Intermediate IRRITABILITY; Verified 11/23/22 10:46 ANGER erythromycin base AdvReac Intermediate Nausea Verified 11/23/22 10:46 [Erythromycin Base] General Stated Complaint: Chest Pain SARABJIT: 3 Review of Systems Narrative: 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 Sick contacts at work. No vomiting. See HPI. 8 systems were reviewed and otherwise negative. She continues to smoke half pack per day. [facility] All Active Problems (Updated 11/23/22 @ 14:06 by Ken Smith MD) COVID-19 (Acute) Acute bronchospasm (Acute) Viral syndrome (Acute) Chills (without fever) (Acute) Nausea vomiting and diarrhea (Acute) Hyperlipidemia (Chronic) PCOS (polycystic ovarian syndrome) (Chronic) Endometriosis (Chronic) Depressive disorder (Chronic) Generalized anxiety disorder (Chronic) Cigarette smoker (Chronic) Migraine headache (Chronic) Lumbar back pain with radiculopathy affecting right lower extremity (Chronic) Medical History Bilateral kidney stones Left ovarian cyst Right ovarian cyst Surgical History History of bilateral ligation of fallopian tubes History of endometrial ablation Hx of bursectomy (02/04/15) Excision of chronically inflamed prepatellar bursa, left knee. S/P excision of ganglion cyst (03/20/14) Of right ankle Family History Mother No problems noted. Father No problems noted. Brother No problems noted. Daughter No problems noted. Son Asthma Maternal Grandfather No problems noted. Maternal Grandmother Essential hypertension Hyperlipidemia Paternal Grandfather No problems noted. Paternal Grandmother No problems noted. 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 Pets and animals: No Sexually active: Yes Do you think of yourself as: straight/heterosexual Current gender identity: male What is your relationship status?: living with partner How often do you talk on the phone with friends or family?: once per week How often do you get together with friends or relatives?: once per week How often do you attend christianity or roman catholic services?: decline to answer Do you belong to any clubs or organized social groups?: no Panel score (0-1 are the most socially isolated patients): 1 What type of physical activity do you participate in: none Special bro needs: No Seatbelt use: sometimes Helmet use: Yes Helmet use: sometimes Drive intox or ride w/intox taxi cab driver: No Do you feel safe at home: Yes Do you feel safe in your relationship?: Yes Female Reproductive History Menstrual control method: permanent sterilization History History 2 Para 2 Hx # Term Pregnancies Multiple births Hx # Pregnancies Ectopic pregnancies AB induced Hx Number of Living Children 2 AB spontaneous Exam Narrative Exam Narrative: GEN: awake, alert, oriented 3. Pleasant, well groomed, interactive. HEAD: Normocephalic, atraumatic ENT: Mucous membranes moist, oropharynx unremarkable, tympanic membranes bulging but with good light reflex, external ear exam unremarkable EYES: PERRL, EOMI NECK: Full ROM, no SEJAL, no menigismus CHEST/RESP: Nontender, bilateral end expiratory wheeze present CARDIOVASCULAR: RRR, no murmur, rub kayla. 2+ Rad pulse bilateral ABDOMEN: Soft, nontender, no mass. +Bowel sounds EXT: Full ROM, no edema, no rash Neuro: Grossly normal neurologic exam, conversant, interactive. Psych: Speech fluent, thoughts congruent, affect normal Course Vital Signs Vital signs: Vital Signs Temperature 36.9 C 11/23/22 10:36 Pulse 76 11/23/22 10:36 Respiratory Rate 18 11/23/22 10:36 Blood Pressure 162/92 H 11/23/22 10:36 Pulse Oximetry 98 11/23/22 10:36 Temperature 36.9 C 11/23/22 10:36 Temperature Source Temporal Artery Scan 11/23/22 10:36 Pulse 76 11/23/22 10:36 Respiratory Rate 20 11/23/22 10:54 Respiratory Effort Non-Labored 11/23/22 10:54 Respiratory Depth Normal 11/23/22 10:54 Respiratory Pattern Normal 11/23/22 10:54 Blood Pressure 162/92 H 11/23/22 10:36 Blood Pressure Position Sitting 11/23/22 10:36 Pulse Oximetry 98 11/23/22 10:36 Oxygen Delivery Method Room Air 11/23/22 10:36 Oxygen Flow Rate 0 11/23/22 10:36 Pain Level 7 11/23/22 10:36
[2022-11-23 11:16] LABS: Abs Immature Grans 0.01 10^3/uL (0.0-0.06); Absolute Basophil Count 0.03 10^3/uL (0.0-0.2); Absolute Eosinophil Count 0.07 10^3/uL (0.0-0.7); Absolute Lymphocyte Count 1.93 10^3/uL (1.2-3.4); Absolute Monocyte Count 0.78 10^3/uL (0.1-0.8); Absolute Neutrophil Count 2.31 10^3/uL (1.2-6.7); Basophils % 0.6; Eosinophils % 1.4; HCT 42.8 % (36.0-46.0); HGB 14.3 g/dL (11.2-15.7); Immature Grans % 0.2; Lymphocytes % 37.6; MCHC 33.4 % (32.0-36.0); MCV 90 fL (80-95); MPV 10.1 fL (8.0-11.0); Monocytes % 15.2; Platelet Count 267 10^3/uL (130-400); RBC 4.76 10^6/uL (3.93-5.22); RDW-SD 39.5 fL; WBC 5.13 10^3/uL (4.4-10.8)
[2022-11-23] MEDS: methylPREDNISolone SUCC 125 MG VIAL IVP (11:19)
[2022-11-23] MEDS: Ketorolac 15 MG/ML VIAL IVP (11:19)
[2022-11-23] MEDS: Normal Saline 1,000 ML 1000 ML IV ×2 (11:19→11:47)
[2022-11-23 11:34] LABS: ALT 19 U/L (14-59); AST 18 U/L (15-37); Albumin 3.8 g/dL (3.4-5.0); Alkaline Phosphatase 102 U/L (46-116); Anion Gap 8.8 mmol/L (3-11); BUN 16 mg/dL (7-18); Bilirubin, Total 0.3 mg/dL (0.2-1.0); CO2 28.2 mmol/L (21.0-32.0); CREATININE 0.7 mg/dL (0.55-1.02); Chloride 104 mmol/L (98-107); Estimated GFR 110.67 (mL/min/1.73m2); Glucose 98 mg/dL (74-106); Magnesium 1.7 mg/dL (1.8-2.4); Potassium 3.3 mmol/L (3.5-5.1); Sodium 141 mmol/L (136-145); Total Protein 7.7 g/dL (6.4-8.2); Troponin I < 50 ng/L (<or=60)
[2022-11-23] MEDS: Albuterol/Ipratropium 3 ML UPD VIAL UPD (11:47)
[2022-11-23 11:51] LABS: D-Dimer 527 ng/mlFEU (<500)
--- NOTE | 2022-11-23 11:54 | DI.CT_ITS ---
Exam(s) CT CHEST PE CTA EXAM: CT CHEST PE CTA CLINICAL HISTORY: Cough, SOB, elev DDimer. PUI. TECHNIQUE: Imaging Protocol: Axial CT angiography was performed with multi-slice acquisition and mu lti-planar reconstructions as well as axial, coronal and sagittal MIP reconstructions. CONTRAST MATERIAL: Intravenous: Omnipaque 350 Contrast volume:100 ml COMPARISON: CT CT ABDOMEN PELVIS W from 06/22/2021 CR XR PORTABLE CHEST AP from 11/23/2022 FINDINGS: Pulmonary Arteries: No evidence of filling defect to suggest pulmonary emboli. Tracheobronchial tree: Patent where visualized. Mediastinum and Eufemia: No dominant adenopathy or fluid collection. Pulmonary parenchyma: Somewhat limited evaluation due to respiratory motion. No consolidation or dom inant measurable mass. Pleura: No effusion or pneumothorax. Heart: The heart is not dilated. No coronary artery calcifications are seen. Aorta: Thoracic aorta non-dilated. No aneurysm. No dissection. Upper abdomen: Unremarkable. Bones: Degenerative changes in the spine with prominent endplate osteophytes. Tubes, Catheters, and Lines: None IMPRESSION: No evidence of pulmonary embolism. No pulmonary infiltrates. RADIATION DOSE DELIVERED: 588.38mGy.cm Total DLP DATA REPOSITORY: All CT scans at this facility are submitted to the National Radiology Data Registry (NRDR) Dose Index Registry (DIR) with the [employer] ([employer]). RADIATION OPTIMIZATION: All CT scans at this facility use at least one of these dose optimization te chniques: automated exposure control; mA and/or kV adjustment per patient size (includes targeted exa ms where dose is matched to clinical indication); or iterative reconstruction.
[2022-11-23] MEDS: Omnipaque 350 MG/ML 500 ML BTL-Imaging package 100 ML IJ (12:25)
[2022-11-23] MEDS: Normal Saline - Diluent 50 ML VIAL IJ (12:28)
[2022-11-23] MEDS: MAGNESIUM SULFATE 1 GM/100 ML BAG IVPB (12:54)
[2022-11-23] MEDS: Albuterol HFA 8 GM 60 PUFF INH IH (14:21)
== END 2022-11-23 14:27 | disposition home or self-care (01) ==
PROVIDERS: Emergency Provider Emergency Medicine; PCP Nurse Practitioner Family
DX: U07.1 COVID-19 (principal); J98.01 Acute bronchospasm; I10 Essential (primary) hypertension; E87.6 Hypokalemia; E83.42 Hypomagnesemia; R79.1 Abnormal coagulation profile
CPT/HCPCS: 36415; 71275; 80053; 93005; 94640; 96361; 96365; 96375; 99285; 71045; 83735; 84484; 85025; 85379; 93010; J1885; J2930; J3475; J7620

== ENCOUNTER 2022-12-03 02:01 | Outpatient (CLI) | payer MEDICAID, SELFPAY ==
--- NOTE | 2022-12-03 06:45 | DI.US_ITS ---
Exam(s) US PELVIS TRANSVAGINAL EXAM: US PELVIS TRANSVAGINAL CLINICAL HISTORY: pelvic pain and pressure,r10.2 TECHNIQUE: Transabdominal and transvaginal imaging was performed using standard protocol. COMPARISON: CT CT ABDOMEN PELVIS W from 06/22/2021 US US PELVIS TRANSVAGINAL from 06/04/[address] CHEST PE CTA from 11/23/2022 FINDINGS: Exam is limited by the patient's body habitus. UTERUS: Anteverted. 5.5 x 3.1 x 4.2 cm Endometrium: 4 mm Myometrium: Unremarkable. Cervix: Unremarkable. OVARIES: Right: Cyst or mass: None. Left: Cyst or mass: None. DOPPLER: Color: Not well seen due to patient body habitus. CUL-DE-SAC: Free fluid: None. IMPRESSION: 1. Normal-appearing uterus with endometrial stripe within normal limits. 2. Unremarkable bilateral ovaries. DATA REPOSITORY:
== END 2022-12-03 02:21 ==
LOC: DI 02:01
PROVIDERS: PCP Nurse Practitioner Family; Visit Provider Nurse Practitioner Women's Health
DX: R10.2 Pelvic and perineal pain (principal)
CPT/HCPCS: 76830; 76856

== ENCOUNTER 2022-12-03 03:16 | Outpatient (CLI) | payer MEDICAID, SELFPAY ==
[2022-12-03 08:27] LABS: Anion Gap 6.2 mmol/L (3-11); BUN 11 mg/dL (7-18); CO2 27.8 mmol/L (21.0-32.0); CREATININE 0.7 mg/dL (0.55-1.02); Calcium 8.7 mg/dL (8.5-10.1); Calculated LDL 110 mg/dL (<100); Chloride 105 mmol/L (98-107); Cholesterol 182 mg/dL (<200); Estimated GFR 110.67 (mL/min/1.73m2); Glucose 91 mg/dL (74-106); HDL Cholesterol 52 mg/dL (40-60); Potassium 3.7 mmol/L (3.5-5.1); Sodium 139 mmol/L (136-145); Triglyceride 101 mg/dL (<150)
== END 2022-12-03 03:17 | disposition home or self-care (01) ==
LOC: LBO 03:18
PROVIDERS: PCP Nurse Practitioner Family; Visit Provider Nurse Practitioner Family
DX: E78.5 Hyperlipidemia, unspecified (principal)
CPT/HCPCS: 36415; 80048; 80061

== ENCOUNTER 2022-12-21 18:26 | Emergency (ER) | payer MEDICAID, SELFPAY ==
[2022-12-21 18:30] VITALS: BP 155/97; PULSE 85; RESP 18; TEMP 36.4; O2SAT 97
--- NOTE | 2022-12-21 18:48 | ED.GENADUL_ITS ---
Discharge Plan Disposition Patient Disposition: Home Condition: Improving Discharge Details Clinical Impression: Swelling of buccal mucosa Primary Care Provider: Radha Shea ED Provider: Ken Smith Home Meds and New Rx's Prescriptions: New cephalexin 500 mg capsule 500 mg PO TID 5 Days Qty: 15 0RF Continued progesterone micronized [Prometrium] 100 mg capsule 200 mg PO QAM 90 Days Qty: 180 3RF albuterol sulfate 90 mcg/actuation HFA aerosol inhaler 2 inh inhalation Q6H PRN (Reason: shortness of breath or wheezing) acetaminophen 500 mg capsule 1,000 mg PO HS PRN sertraline [Zoloft] 100 mg tablet 200 mg PO DAILY Qty: 180 4RF sumatriptan succinate 50 mg tablet 50 mg PO Q2H PRN (Reason: migraine headache) Qty: 60 1RF Rx Instructions: Take 1 tablet with ibuprofen at onset of headache, if no improvement, take another in 2hrs buspirone 10 mg tablet 10 - 20 mg PO TID Qty: 420 4RF Rx Instructions: Take 2 tabs in the AM, 2 tabs in the afternoon and 1 tab at bedtime omeprazole magnesium 20 mg tablet,delayed release (DR/EC) 20 mg PO DAILY Qty: 90 3RF methocarbamol 750 mg tablet 750 mg PO TID PRN (Reason: prn muscle/back pain) Qty: 90 2RF ibuprofen 800 mg tablet 800 mg PO Q8H PRN (Reason: pain) Qty: 90 2RF meloxicam 15 mg tablet 15 mg PO DAILY PRN (Reason: pain) Qty: 90 0RF Discharge Instructions Additional Instructions: Take antibiotics as prescribed. First dose tonight and then second dose tomorrow morning. Warm, salt water gargles 5-6 times per day. You may apply moist heat to left cheek to speed healing. Leslie amounts of fluids to maintain hydration. Return for increased discomfort, go up on a fever, worsening swelling, or any other acute concern. Medical Decision Making This is a 42-year-old female who noticed a bump on the inside of her left cheek followed by swelling and discomfort of the left cheek. On exam she has soft tissue prominence consistent with an area of whitening of the buccal surface. I cannot rule out underlying facial cellulitis. The patient has a strong allergy history to penicillins and, erythromycin and azithromycin. I will place her on a course of Keflex. She will perform salt water gargles and return for worsening. She is stable and appropriate for discharge. HPI General Mode of arrival: ambulatory . Date/Time Provider Initiated Documentation: 12/21/22 18:32 . Limitations to Documentation: no limitations . History of Present Illness 42 year old F presents to the emergency department with the chief complaint of Left cheek swelling and intraoral bump, described as mild, Quality is described as dull, and is localized to the face, mouth and left. Patient reports no radiation. Patient started experiencing this hour(s) and it has been constant. No relieving factors improve symptom(s), No exacerbating factors reported . Patient notes denies fever/chills, shortness of breath and weakness. Patient did receive the following treatments prior to arrival, none Related Data Home Medications Medication Instructions Recorded Confirmed acetaminophen 500 mg capsule 1,000 mg PO HS PRN 02/19/21 12/02/22 ibuprofen 800 mg tablet 800 mg PO Q8H PRN pain #90 tabs 07/09/21 12/02/22 methocarbamol 750 mg tablet 750 mg PO TID PRN prn muscle/back 07/09/21 12/02/22 pain #90 tabs buspirone 10 mg tablet 10 - 20 mg PO TID #420 tab-caps 01/12/22 12/02/22 sertraline 100 mg tablet (Zoloft) 200 mg PO DAILY #180 tabs 01/12/22 12/02/22 sumatriptan succinate 50 mg tablet 50 mg PO Q2H PRN migraine headache 01/12/22 12/02/22 #60 tabs progesterone micronized 100 mg 200 mg PO QAM 90 days #180 caps 03/26/22 12/02/22 capsule (Prometrium) omeprazole magnesium 20 mg 20 mg PO DAILY #90 tabs 05/29/22 12/02/22 tablet,delayed release meloxicam 15 mg tablet 15 mg PO DAILY PRN pain #90 tabs 08/19/22 12/02/22 albuterol sulfate 90 mcg/actuation 2 inh inhalation Q6H PRN shortness 12/02/22 12/02/22 aerosol inhaler of breath or wheezing cephalexin 500 mg capsule 500 mg PO TID 5 days #15 caps 12/21/22 Previous Rx's Medication Instructions Recorded ibuprofen 800 mg tablet 800 mg PO Q8H PRN pain #90 tabs 07/09/21 methocarbamol 750 mg tablet 750 mg PO TID PRN prn muscle/back 07/09/21 pain #90 tabs buspirone 10 mg tablet 10 - 20 mg PO TID #420 tab-caps 01/12/22 sertraline 100 mg tablet (Zoloft) 200 mg PO DAILY #180 tabs 01/12/22 sumatriptan succinate 50 mg tablet 50 mg PO Q2H PRN migraine headache 01/12/22 #60 tabs progesterone micronized 100 mg 200 mg PO QAM 90 days #180 caps 03/26/22 capsule (Prometrium) omeprazole magnesium 20 mg 20 mg PO DAILY #90 tabs 05/29/22 tablet,delayed release meloxicam 15 mg tablet 15 mg PO DAILY PRN pain #90 tabs 08/19/22 cephalexin 500 mg capsule 500 mg PO TID 5 days #15 caps 12/21/22 Allergies Allergy/AdvReac Type Severity Reaction Status Date / Time Penicillins Allergy Unknown Verified 11/23/22 10:46 azithromycin AdvReac Severe Syncopal Verified 11/23/22 10:46 episode bupropion AdvReac Intermediate IRRITABILITY; Verified 11/23/22 10:46 ANGER erythromycin base AdvReac Intermediate Nausea Verified 11/23/22 10:46 [Erythromycin Base] General Stated Complaint: FacialProb SARABJIT: 3 Review of Systems Narrative: 6 systems reviewed and otherwise negative PFSH All Active Problems (Updated 12/21/22 @ 18:50 by Ken Smith MD) Swelling of buccal mucosa (Acute) COVID-19 (Acute ~11/2022) Acute bronchospasm (Acute) Hyperlipidemia (Chronic) PCOS (polycystic ovarian syndrome) (Chronic) Endometriosis (Chronic) Depressive disorder (Chronic) Generalized anxiety disorder (Chronic) Cigarette smoker (Chronic) Migraine headache (Chronic) Lumbar back pain with radiculopathy affecting right lower extremity (Chronic) Medical History Bilateral kidney stones Left ovarian cyst Right ovarian cyst Surgical History History of bilateral ligation of fallopian tubes History of endometrial ablation Hx of bursectomy (02/04/15) Excision of chronically inflamed prepatellar bursa, left knee. S/P excision of ganglion cyst (03/20/14) Of right ankle Family History Mother No problems noted. Father No problems noted. Brother No problems noted. Daughter No problems noted. Son Asthma Maternal Grandfather No problems noted. Maternal Grandmother Essential hypertension Hyperlipidemia Paternal Grandfather No problems noted. Paternal Grandmother No problems noted. 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 Pets and animals: No Sexually active: Yes Do you think of yourself as: straight/heterosexual Current gender identity: male What is your relationship status?: living with partner How often do you talk on the phone with friends or family?: once per week How often do you get together with friends or relatives?: once per week How often do you attend religion or mormonism services?: decline to answer Do you belong to any clubs or organized social groups?: no Panel score (0-1 are the most socially isolated patients): 1 What type of physical activity do you participate in: none Special bro needs: No Seatbelt use: sometimes Helmet use: Yes Helmet use: sometimes Drive intox or ride w/intox water taxi driver: No Do you feel safe at home: Yes Do you feel safe in your relationship?: Yes Female Reproductive History Menstrual control method: permanent sterilization History History 2 Para 2 Hx # Term Pregnancies Multiple births Hx # Pregnancies Ectopic pregnancies AB induced Hx Number of Living Children 2 AB spontaneous Exam Narrative Exam Narrative: GEN: awake, alert, oriented 3. Pleasant, well groomed, interactive. HEAD: Normocephalic, atraumatic ENT: Mucous membranes moist, oropharynx reveals left buccal surface with a ridge of soft tissue. There is no significant buccal swelling present., External ear exam unremarkable EYES: PERRL, EOMI NECK: Full ROM, no SEJAL, no menigismus EXT: Full ROM, no edema, no rash Neuro: Grossly normal neurologic exam, conversant, interactive. Psych: Speech fluent, thoughts congruent, affect normal Course Vital Signs Vital signs: Vital Signs Temperature 36.4 C L 12/21/22 18:30 Pulse 85 12/21/22 18:30 Respiratory Rate 18 12/21/22 18:30 Blood Pressure 155/97 H 12/21/22 18:30 Pulse Oximetry 97 12/21/22 18:30 Temperature 36.4 C L 12/21/22 18:30 Temperature Source Skin 12/21/22 18:30 Pulse 85 12/21/22 18:30 Respiratory Rate 18 12/21/22 18:30 Blood Pressure 155/97 H 12/21/22 18:30 Blood Pressure Position Sitting 12/21/22 18:30 Pulse Oximetry 97 12/21/22 18:30 Oxygen Delivery Method Room Air 12/21/22 18:30 Oxygen Flow Rate 0 12/21/22 18:30 Pain Level 7 12/21/22 18:30
[2022-12-21] MEDS: Cephalexin 500 MG CAP, 2 CAPS/BTL PO (19:03)
== END 2022-12-21 19:01 | disposition home or self-care (01) ==
LOC: ER 18:51
PROVIDERS: Emergency Provider Emergency Medicine; PCP Nurse Practitioner Family
DX: K13.79 Other lesions of oral mucosa (principal)
CPT/HCPCS: 99283

== ENCOUNTER 2023-04-24 20:44 | Emergency (ER) | payer MEDICAID, SELFPAY ==
[2023-04-24 20:46] VITALS: BP 141/111; PULSE 104; RESP 18; TEMP 36.7; O2SAT 100
--- NOTE | 2023-04-24 20:59 | NUR.NOTE ---
Nursing Note:Pt states she was on lexapro and amlodipine was increased and is not sure if these medications are causing s/s. Pt denies any tick bites. Neuro exam at triage negative.
--- NOTE | 2023-04-24 21:00 | RT.EKG_ITS ---
APPROVED REPORT Exam: Resting ECG Reason for Exam: sob Patient Location: E HR:90 bpm ECG Measurements Heart Rate 90 AXIS NC 159 P 64 QRSd 84 QRS -13 QT 361 T 31 QTc 442 Conclusion Sinus rhythm...normal P axis, V-rate 60- 99 Probable left atrial enlargement...P >50mS, <-0.10mV V1 Physician: no stemi
[2023-04-24 21:21] LABS: BE (Venous) 1 mmol/L (-2-3); HCO3 (Venous) 25 mmol/L (23-28); O2 Sat (Venous) 98 %; TCO2 (Venous) 23 mmol/L (24-29); pCO2 (Venous) 40 mmHg (41-51); pH (Venous) 7.41 (7.31-7.41); pO2 (Venous) 83 mmHg
[2023-04-24 21:22] LABS: Abs Immature Grans 0.05 10^3/uL (0.0-0.06); Absolute Eosinophil Count 0.09 10^3/uL (0.0-0.7); Absolute Lymphocyte Count 2.24 10^3/uL (1.2-3.4); Absolute Monocyte Count 0.78 10^3/uL (0.1-0.8); Absolute Neutrophil Count 9.07 10^3/uL (1.2-6.7); Basophils % 0.2; Eosinophils % 0.7; HCT 41.1 % (36.0-46.0); HGB 14.1 g/dL (11.2-15.7); Immature Grans % 0.4; Lymphocytes % 18.3; MCH 29.9 pg (27.0-33.0); MCHC 34.3 % (32.0-36.0); MCV 87 fL (80-95); MPV 9.6 fL (8.0-11.0); Monocytes % 6.4; Platelet Count 318 10^3/uL (130-400); RBC 4.72 10^6/uL (3.93-5.22); RDW 11.9 % (11.7-14.6); WBC 12.26 10^3/uL (4.4-10.8)
[2023-04-24 21:23] LABS: Absolute Basophil Count 0.02 10^3/uL (0.0-0.2)
[2023-04-24] MEDS: Lactated Ringers 1,000 ML 1000 ML IV (21:34)
[2023-04-24 21:37] LABS: Ammonia 20 umol/L (11-32)
--- NOTE | 2023-04-24 21:39 | W.ED.GENAD ---
Discharge Plan Disposition Patient Disposition: Home Discharge Details Chief Complaint: GenMedical Clinical Impression: Acute hypokalemia, Fatigue, Dehydration Primary Care Provider: Radha Shea ED Provider: Dickson Florian Home Meds and New Rx's Prescriptions: No Action meloxicam 15 mg tablet 15 mg PO DAILY PRN (Reason: pain) Qty: 90 1RF buspirone 10 mg tablet 10 - 20 mg PO TID Qty: 420 3RF Rx Instructions: Take 2 tabs in the AM, 2 tabs in the afternoon and 1 tab at bedtime sumatriptan succinate 50 mg tablet 50 mg PO Q2H PRN (Reason: migraine headache) Qty: 60 1RF Rx Instructions: Take 1 tablet with ibuprofen at onset of headache, if no improvement, take another in 2hrs nicotine 10 mg cartridge 1 inh inhalation .6-16X/DAY PRN (Reason: nicotine cravings) Qty: 168 4RF Rx Instructions: 6 to 16 cartridges/day for first 6-12 weeks. Gradually reduce use over next 6-12wks. progesterone micronized [Prometrium] 100 mg capsule 200 mg PO QAM 90 Days Qty: 180 3RF albuterol sulfate 90 mcg/actuation HFA aerosol inhaler 2 inh inhalation Q6H PRN (Reason: shortness of breath or wheezing) amlodipine 10 mg tablet 10 mg PO DAILY Qty: 90 3RF sertraline [Zoloft] 100 mg tablet 50 - 100 mg PO DAILY Qty: 90 3RF Rx Instructions: Take half a tablet daily for one week then increase to 100mg daily acetaminophen 500 mg capsule 1,000 mg PO HS PRN omeprazole magnesium 20 mg tablet,delayed release (DR/EC) 20 mg PO DAILY Qty: 90 3RF ibuprofen 800 mg tablet 800 mg PO Q8H PRN (Reason: pain) Qty: 90 2RF cetirizine 10 mg tablet 10 mg PO DAILY PRN (Reason: allergy symptoms) Qty: 90 3RF Discharge Instructions Instructions: Hypokalemia (ED), Fatigue (ED) Additional Instructions: At this time your work-up is returned relatively reassuring. There is no evidence of heart attack, heart strain, significant thyroid dysfunction, blood clots, or other significant abnormality. Please stay well-hydrated and drink plenty of fluids throughout the day. As we discussed together it would be beneficial to start a food activity and symptom diary to look for any potential trends that could be causing your constellation of symptoms. Please follow-up closely with your primary care provider at your scheduled appointment on Wednesday. The tick and Lyme panel should return in the next few days. Your potassium was slightly low, this has been corrected with the oral potassium that you have been given. Please continue to eat a potassium rich diet over the next few days of bananas, legumes, or avocados. If you notice any worsening of your symptoms, or any new symptoms such as vomiting, diarrhea, fever, chills, shortness of breath, chest pain, numbness, weakness, or fainting , please return immediately to the emergency department for reevaluation. Please follow up with your primary care provider as soon as possible for reassessment and reevaluation. As always, it was a pleasure participating in your medical care today. Referrals: Radha Shea NP [Primary Care Provider] - Medical Decision Making This is a 42-year-old female with a past medical history of hypertension, anxiety, PTSD, polycystic ovarian syndrome, GERD, endometriosis, surgically excised lipoma of the forehead, who presents today for evaluation of multiple symptoms including fatigue nausea headache hot flashes. Patient states that about 1 month ago her amlodipine dose was increased from 5 mg to 10 mg, and 3 weeks ago she was stopped on her Zoloft and transition to Lexapro. It was around this time that she began developing symptoms of fatigue flashes nausea and headache. These have come and gone, however they have notably worsened over the last few days. It was initially thought that the symptoms are secondary to the Lexapro and so she has just stopped that for the past week. She had a titrated decrease in her dose and gradually came off of it. Unfortunately symptoms persist. Additionally she had COVID back in December and has been short of breath ever since, but denies any chest pain, pleuritic chest pain, arm neck or shoulder pain. She denies any vomiting or diarrhea. She denies any fever. She is only 42 and has not formally started menopause. She denies any other new medications. She denies any history of thyroid dysfunction. No particular aggravating or relieving factors. She denies any dysuria or frequency. She denies any vision changes or neck pain. No other complaints at this time. No exertional chest discomfort. Exam demonstrates dry mucous membranes, normal neurologic exam, no nuchal rigidity. No focal deficits. Uncertain as to what the exact cause of the patient's malaise like symptoms are. Thyroid dysfunction, metabolic disturbance, dehydration, and depression are certainly on the differential. Tickborne illness is of concern however she denies any tick bites. We will evaluate for these etiologies, monitor closely and reassess. Symptoms appear clinically inconsistent with meningitis at this time. 11:18 PM Patient's laboratory work-up has returned, thyroid function appears relatively normal, electrolytes stable, VBG shows no acidosis or elevated PCO2. Potassium slightly low at 3.3, this will be corrected with 40 mill equivalents of oral potassium and dietary recommendations. Renal function stable, troponin normal, proBNP shows no signs of heart strain. D-dimer was elevated which did increase concern for PE. CTA was ordered and shows no evidence of acute process per virtual radiology. COVID flu and RSV are negative. Tick and Lyme panel has been sent and we are waiting those results. Otherwise patient appears clinically stable and well. She has been rehydrated with 1 L of supplemental fluids. She feels well. Repeat exam continues to show no signs of focal neurologic deficits, or other significant abnormality. Uncertain as to the exact cause of the patient's symptoms, but at this time there is no clear evidence of an acute life-threatening etiology requiring further emergent imaging or assessment. I did discuss sleep apnea, sleep habits, and potential further outpatient testing with PCP. Patient and family understand this. Discussed red flags for which to return. I have extensively reviewed the treatment plan and discharge instructions with the patient and their family. I have addressed all patient concerns at this time. The patient and family was made aware of what symptoms to monitor for that would warrant a return to the emergency department. Discussed the plan with the patient and family, they demonstrate verbal understanding and agreement with our assessment and plan at this time. The documentation in this chart was dictated using [employer] dictation software. Please excuse any dictation errors. FINDINGS: Pulmonary arteries: Normal. No pulmonary emboli. Aorta: Unremarkable. No aortic aneurysm. No aortic dissection. Lungs: No consolidation. No ground-glass opacity. No significant endobronchial mucus. Pleural spaces: Unremarkable. No pneumothorax. No pleural effusion. Heart: No cardiomegaly. No pericardial effusion. No coronary artery calcifications. Lymph nodes: Unremarkable. No enlarged lymph nodes. Bones/joints: No compression fractures. Anterior longitudinal ligament ossification and enthesophytes are noted at multiple levels. No significant disc space narrowing in the thoracic spine. Intact sternum. Unremarkable ribs. Soft tissues: Unremarkable. IMPRESSION: 1. Negative for pulmonary embolism. 2. Negative for aortic dissection. 3. No significant pneumonia. Thank you for allowing us to participate in the care of your patient. Dictated and Authenticated by: Parrish Gregorio MD 04/24/2023 10:53 PM Eastern Time ([place] & [place]) HPI General Date/Time Provider Initiated Documentation: 04/24/23 20:47. HPI Narrative: This is a 42-year-old female with a past medical history of hypertension, anxiety, PTSD, polycystic ovarian syndrome, GERD, endometriosis, surgically excised lipoma of the forehead, who presents today for evaluation of multiple symptoms including fatigue nausea headache hot flashes. Patient states that about 1 month ago her amlodipine dose was increased from 5 mg to 10 mg, and 3 weeks ago she was stopped on her Zoloft and transition to Lexapro. It was around this time that she began developing symptoms of fatigue flashes nausea and headache. These have come and gone, however they have notably worsened over the last few days. It was initially thought that the symptoms are secondary to the Lexapro and so she has just stopped that for the past week. She had a titrated decrease in her dose and gradually came off of it. Unfortunately symptoms persist. Additionally she had COVID back in December and has been short of breath ever since, but denies any chest pain, pleuritic chest pain, arm neck or shoulder pain. She denies any vomiting or diarrhea. She denies any fever. She is only 42 and has not formally started menopause. She denies any other new medications. She denies any history of thyroid dysfunction. No particular aggravating or relieving factors. She denies any dysuria or frequency. She denies any vision changes or neck pain. No other complaints at this time. No exertional chest discomfort. Related Data Home Medications Medication Instructions Recorded Confirmed acetaminophen 500 mg capsule 1,000 mg PO HS PRN 02/19/21 04/24/23 ibuprofen 800 mg tablet 800 mg PO Q8H PRN pain #90 tabs 07/09/21 04/24/23 progesterone micronized 100 mg 200 mg PO QAM 90 days #180 caps 03/26/22 04/24/23 capsule (Prometrium) omeprazole magnesium 20 mg 20 mg PO DAILY #90 tabs 05/29/22 04/24/23 tablet,delayed release albuterol sulfate 90 mcg/actuation 2 inh inhalation Q6H PRN shortness 12/02/22 04/24/23 aerosol inhaler of breath or wheezing buspirone 10 mg tablet 10 - 20 mg PO TID #420 tab-caps 01/13/23 04/24/23 meloxicam 15 mg tablet 15 mg PO DAILY PRN pain #90 tabs 01/13/23 04/24/23 nicotine 10 mg inhalation cartridge 1 inh inhalation .6-16X/DAY PRN 01/13/23 04/24/23 nicotine cravings #168 ea sumatriptan succinate 50 mg tablet 50 mg PO Q2H PRN migraine headache 01/13/23 04/24/23 #60 tabs cetirizine 10 mg tablet 10 mg PO DAILY PRN allergy 03/12/23 04/24/23 symptoms #90 tabs amlodipine 10 mg tablet 10 mg PO DAILY #90 tabs 04/16/23 04/24/23 sertraline 100 mg tablet (Zoloft) 50 - 100 mg PO DAILY #90 tabs 04/16/23 04/24/23 Previous Rx's Medication Instructions Recorded ibuprofen 800 mg tablet 800 mg PO Q8H PRN pain #90 tabs 07/09/21 progesterone micronized 100 mg 200 mg PO QAM 90 days #180 caps 03/26/22 capsule (Prometrium) omeprazole magnesium 20 mg 20 mg PO DAILY #90 tabs 05/29/22 tablet,delayed release buspirone 10 mg tablet 10 - 20 mg PO TID #420 tab-caps 01/13/23 meloxicam 15 mg tablet 15 mg PO DAILY PRN pain #90 tabs 01/13/23 nicotine 10 mg inhalation cartridge 1 inh inhalation .6-16X/DAY PRN 01/13/23 nicotine cravings #168 ea sumatriptan succinate 50 mg tablet 50 mg PO Q2H PRN migraine headache 01/13/23 #60 tabs cetirizine 10 mg tablet 10 mg PO DAILY PRN allergy 03/12/23 symptoms #90 tabs amlodipine 10 mg tablet 10 mg PO DAILY #90 tabs 04/16/23 sertraline 100 mg tablet (Zoloft) 50 - 100 mg PO DAILY #90 tabs 04/16/23 Allergies Allergy/AdvReac Type Severity Reaction Status Date / Time Penicillins Allergy Unknown Verified 04/16/23 07:41 azithromycin AdvReac Severe Syncopal Verified 04/16/23 07:41 episode bupropion AdvReac Intermediate IRRITABILITY; Verified 04/16/23 07:41 ANGER erythromycin base AdvReac Intermediate Nausea Verified 04/16/23 07:41 [Erythromycin Base] General Stated Complaint: GenMedical SARABJIT: 3 Review of Systems All systems reviewed & are unremarkable except as noted in HPI and below PFSH All Active Problems Acute hypokalemia (Acute) Fatigue (Acute) Dehydration (Acute) Hypertension (Chronic) Hyperlipidemia (Chronic) Endometriosis (Chronic) Generalized anxiety disorder (Chronic) Depressive disorder (Chronic) Gastroesophageal reflux disease without esophagitis (Chronic) PCOS (polycystic ovarian syndrome) (Chronic) Chronic pelvic pain in female (Chronic) Lumbar back pain with radiculopathy affecting right lower extremity (Chronic) Migraine headache (Chronic) Obesity (BMI 30-39.9) (Chronic) Lipoma of forehead (Chronic) Cigarette smoker (Chronic) Medical History Bilateral kidney stones COVID-19 (~11/2022) Left ovarian cyst Right ovarian cyst Surgical History History of bilateral ligation of fallopian tubes History of endometrial ablation Hx of bursectomy (02/04/15) Excision of chronically inflamed prepatellar bursa, left knee. S/P excision of ganglion cyst (03/20/14) Of right ankle Status post hysteroscopy (06/09/19) Family History Mother No problems noted. Father No problems noted. Brother No problems noted. Daughter No problems noted. Son Asthma Maternal Grandfather No problems noted. Maternal Grandmother Essential hypertension Hyperlipidemia Paternal Grandfather No problems noted. Paternal Grandmother No problems noted. 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 Pets and animals: No Sexually active: Yes Do you think of yourself as: straight/heterosexual Current gender identity: male What is your relationship status?: living with partner How often do you talk on the phone with friends or family?: twice per week How often do you get together with friends or relatives?: once per week How often do you attend congregational or restorationism services?: decline to answer Do you belong to any clubs or organized social groups?: no Panel score (0-1 are the most socially isolated patients): 2 What type of physical activity do you participate in: none Frequency: does not exercise Kailee/Yazdanism: No preference Special kailee needs: No Seatbelt use: sometimes Helmet use: Yes Helmet use: sometimes Drive intox or ride w/intox truck driver flatbed: No Do you feel safe at home: Yes Do you feel safe in your relationship?: Yes Female Reproductive History Menstrual control method: permanent sterilization History History 2 Para 2 Hx # Term Pregnancies Multiple births Hx # Pregnancies Ectopic pregnancies AB induced Hx Number of Living Children 2 AB spontaneous Exam Narrative Exam Narrative: 1.Const: Well-nourished, Well-developed, appearing stated age 2.Eyes: PERRL, no conjunctival injection, and symmetrical lids. 3.ENT: Atraumatic external nose and ears. Notably dry MM. Neck: Symmetric, trachea midline, No thyromegaly. Patient demonstrates good movement of cervical neck. There is no nuchal rigidity, no nuchal tenderness. Patient is able to flex the neck without any difficulty or significant pain. Negative Kernig's and Brudzinski sign. 4.CVS: +S1/S2, No murmurs or gallops. Peripheral pulses 2+ and equal in all extremities. Brisk capillary refill in all extremities. 5.RESP: Unlabored respiratory effort. Clear to auscultation bilaterally. No wheezes rales or rhonchi 6.GI: Soft, Nontender/Nondistended, No hepatosplenomegaly. No guarding or rebound. 7.MSK: Normocephalic/Atraumatic, Extremities w/o deformity or ttp No cyanosis or clubbing, Normal movement of all extremities 8.Skin: Warm, Dry. No rashes or lesions. 9.Neuro: director of sustainability programs II-XII grossly intact. Sensation grossly intact, no focal neurologic deficits. All 6 cardinal planes of vision are fully intact. No evidence of rotatory or vertical nystagmus. The patient demonstrated a normal edntci-jufu-ssgmpp, good dexterity. There was no evidence of dysdiadochokinesia. Patient was able to ambulate without difficulty. There was no wide-based gait. Romberg testing was normal. Tobc-jm-rkyn testing was normal. Sensation was intact bilaterally as well as muscle strength bilaterally for all extremities. Patient was able to verbalize butter cup with no slurring, or miss pronunciation. 10.Psych: (AAO) x3. Appropriate mood and affect Course Vital Signs Vital signs: Vital Signs Temperature 36.7 C 04/24/23 20:46 Pulse 104 H 04/24/23 20:46 Respiratory Rate 18 04/24/23 20:46 Blood Pressure 141/111 H 04/24/23 20:46 Pulse Oximetry 100 04/24/23 20:46 Temperature 36.7 C 04/24/23 20:46 Temperature Source Temporal Artery Scan 04/24/23 20:46 Pulse 104 H 04/24/23 20:46 Respiratory Rate 18 04/24/23 20:46 Respiratory Effort Normal, Non-Labored 04/24/23 21:17 Respiratory Depth Normal 04/24/23 20:53 Respiratory Pattern Normal 04/24/23 20:53 Blood Pressure 141/111 H 04/24/23 20:46 Blood Pressure Position Sitting 04/24/23 20:46 Pulse Oximetry 100 04/24/23 20:46 Oxygen Delivery Method Room Air 04/24/23 20:46 Oxygen Flow Rate 0 04/24/23 20:46 Pain Level 0 04/24/23 20:46 Lab/Test Results Lab/Test Results: Laboratory Tests Range/Units 04/24/23 04/24/23 21:10 21:10 WBC (4.4-10.8) 10^3/uL 12.26 H RBC (3.93-5.22) 10^6/uL 4.72 Hgb (11.2-15.7) g/dL 14.1 Hct (36.0-46.0) % 41.1 MCV (80-95) fL 87 MCH (27.0-33.0) pg 29.9 MCHC (32.0-36.0) % 34.3 RDW (11.7-14.6) % 11.9 Plt Count (130-400) 10^3/uL 318 MPV (8.0-11.0) fL 9.6 Immature Gran % 0.4 Neutrophils % 74.0 Lymphocytes % 18.3 Monocytes % 6.4 Eosinophils % 0.7 Basophils % 0.2 Nucleated RBC % (0.0-0.3) % 0.0 Absolute Neutrophils (1.2-6.7) 10^3/uL 9.07 H Absolute Lymphocytes (1.2-3.4) 10^3/uL 2.24 Absolute Monocytes (0.1-0.8) 10^3/uL 0.78 Absolute Eosinophils (0.0-0.7) 10^3/uL 0.09 Absolute Basophils (0.0-0.2) 10^3/uL 0.02 VBG pH (7.31-7.41) 7.41 VBG pCO2 (41-51) mmHg 40 L VBG pO2 mmHg 83 VBG HCO3 (23-28) mmol/L 25 VBG Total CO2 (24-29) mmol/L 23 L VBG O2 Saturation % 98 VBG Base Excess (-2-3) mmol/L 1
[2023-04-24 21:48] LABS: ALT 20 U/L (14-59); AST 13 U/L (15-37); Albumin 3.8 g/dL (3.4-5.0); Alkaline Phosphatase 112 U/L (46-116); Anion Gap 8.9 mmol/L (3-11); BUN 14 mg/dL (7-18); Bilirubin, Total 0.6 mg/dL (0.2-1.0); CO2 27.1 mmol/L (21.0-32.0); CREATININE 0.8 mg/dL (0.55-1.02); Calcium 8.9 mg/dL (8.5-10.1); Chloride 104 mmol/L (98-107); Estimated GFR 94.28 (mL/min/1.73m2); Glucose 107 mg/dL (74-106); NT-proBNP 61 pg/mL (<300); Potassium 3.3 mmol/L (3.5-5.1); Sodium 140 mmol/L (136-145); TSH (W/Ref FT4) 3.34 uIU/mL (0.36-3.74); Total Protein 7.9 g/dL (6.4-8.2); Troponin I < 50 ng/L (<or=60)
[2023-04-24 21:55] LABS: COVID-19 PCR Negative (Negative); Influenza A PCR Negative (Negative); Influenza B PCR Negative (Negative); RSV PCR Negative (Negative)
[2023-04-24 21:57] LABS: D-Dimer 626 ng/mlFEU (<500)
[2023-04-24 21:58] LABS: Source Nasopharynx
--- NOTE | 2023-04-24 22:00 | DI.CT_ITS ---
Exam(s) CT CHEST PE CTA EXAM: CT CHEST PE CTA CLINICAL HISTORY: sob, positive dimer. TECHNIQUE: Imaging Protocol: Axial CT angiography was performed with multi-slice acquisition and mu lti-planar reconstructions as well as axial, coronal and sagittal MIP reconstructions. CONTRAST MATERIAL: Intravenous: Omnipaque 350 Contrast volume:100 ml COMPARISON: CT CT CHEST PE CTA from 11/23/2022 FINDINGS: Pulmonary Arteries: No evidence of filling defect to suggest pulmonary emboli. Tracheobronchial tree: Patent where visualized. Mediastinum and Eufemia: No dominant adenopathy or fluid collection. Pulmonary parenchyma: No consolidation or dominant measurable mass. Mild respiratory motion Pleura: No effusion or pneumothorax. Heart: The heart is not dilated. No coronary artery calcifications are seen. Aorta: Thoracic aorta non-dilated. No aneurysm. No dissection. Upper abdomen: Unremarkable. Bones: Prominent endplate osteophytes in the lower thoracic spine. No evidence of fracture. Tubes, Catheters, and Lines: IMPRESSION: No evidence of pulmonary embolism or other acute abnormality. RADIATION DOSE DELIVERED: 695.66mGy.cm Total DLP DATA REPOSITORY: All CT scans at this facility are submitted to the National Radiology Data Registry (NRDR) Dose Index Registry (DIR) with the [employer] (ACR). RADIATION OPTIMIZATION: All CT scans at this facility use at least one of these dose optimization te chniques: automated exposure control; mA and/or kV adjustment per patient size (includes targeted exa ms where dose is matched to clinical indication); or iterative reconstruction.
[2023-04-24] MEDS: Normal Saline - Diluent 50 ML VIAL IJ (22:10)
[2023-04-24] MEDS: Normal Saline Flush 10 ML SYR IVP (22:10)
[2023-04-24] MEDS: Omnipaque 350 MG/ML 100 ML BTL IJ (22:11)
--- NOTE | 2023-04-24 22:54 | DI.VRAD_ITS ---
PROCEDURE INFORMATION: Exam: CTA Chest With Contrast Exam date and time: 04/24/2023 10:17 PM Age: 42 years old Clinical indication: Shortness of breath; Patient HX: SOB, positive dimer TECHNIQUE: Imaging protocol: Computed tomographic angiography of the chest with contrast. Exam focused on the arteries. 3D rendering (Not supervised by radiologist): MIP and/or 3D reconstructed images were created by the technologist. Contrast material: OMNIPAQUE 350; Contrast volume: 100 ml; Contrast route: INTRAVENOUS (IV); COMPARISON: CT CHEST PE CTA 11/23/2022 12:31 PM FINDINGS: Pulmonary arteries: Normal. No pulmonary emboli. Aorta: Unremarkable. No aortic aneurysm. No aortic dissection. Lungs: No consolidation. No ground-glass opacity. No significant endobronchial mucus. Pleural spaces: Unremarkable. No pneumothorax. No pleural effusion. Heart: No cardiomegaly. No pericardial effusion. No coronary artery calcifications. Lymph nodes: Unremarkable. No enlarged lymph nodes. Bones/joints: No compression fractures. Anterior longitudinal ligament ossification and enthesophytes are noted at multiple levels. No significant disc space narrowing in the thoracic spine. Intact sternum. Unremarkable ribs. Soft tissues: Unremarkable. IMPRESSION: 1. Negative for pulmonary embolism. 2. Negative for aortic dissection. 3. No significant pneumonia. Dictated and Authenticated by: Parrish Gregorio MD. Ordering:EZEQUIEL Forman MD
[2023-04-24 23:16] VITALS: BP 132/72; PULSE 72; RESP 16; O2SAT 99
[2023-04-26 11:42] LABS: Lyme Ab w Rflx to Lyme Confirm Negative (Negative)
[2023-04-27 15:42] LABS: Anaplasma phagocytophilum Negative (Negative); B. miyamotoi PCR Negative (Negative); Babesia divergens/MO-1 Negative (Negative); Babesia duncani Negative (Negative); Babesia microti Negative (Negative); Ehrlichia chaffeensis Negative (Negative); Ehrlichia ewingii/canis Negative (Negative); Ehrlichia muris eauclairensis Negative (Negative)
== END 2023-04-24 23:19 | disposition home or self-care (01) ==
PROVIDERS: Emergency Provider Student in an Organized Health Care Education/Training Program; PCP Nurse Practitioner Family
DX: R06.02 Shortness of breath (principal); E87.6 Hypokalemia; R53.83 Other fatigue; E86.0 Dehydration; F41.9 Anxiety disorder, unspecified; F17.210 Nicotine dependence, cigarettes, uncomplicated; Z79.899 Other long term (current) drug therapy
CPT/HCPCS: 36415; 71275; 80053; 82805; 87637; 87798; 93005; 96360; 99285; 82140; 83880; 84443; 84484; 85025; 85379; 86618; 93010; 99283; J3490

== ENCOUNTER 2023-07-29 15:45 | Outpatient (REF) | payer MEDICAID, SELFPAY ==
--- NOTE | 2023-07-29 15:20 | PAPFT_PTH ---
PATIENT: Marisol Castro LOC: [facility] U#:[id number] AGE/SX: 43/F ROOM: RE07/29/[address]: Layne Elizondo DO : 1980 BED: DIS: 07/29/2023 SPEC #: [id number] RECD: 07/29/23 18:02 STATUS: TORRIE RE #: [id number] CRISTOFER: 07/29/23 15:[address]: Layne Elizondo DEPT: [facility] Cytology RECD BY: Arianne Laird ENTERED: 07/29/23 18:03 SP TYPE: PAPFT OTHR DR: Radha Shea, EQUIPMENT MAINTENANCE ENGINEER Tissues: 1 - CX/ENDOCX FOR PAP SMEARS Procedures: PAP THIN PREP/[facility] Screening HPV DNA PROBE Comments: [id number]
== END 2023-07-29 15:46 | disposition home or self-care (01) ==
LOC: LBN 15:45
PROVIDERS: PCP Nurse Practitioner Family; Visit Provider Obstetrics & Gynecology
DX: Z12.4 Encounter for screening for malignant neoplasm of cervix (principal); Z11.51 Encounter for screening for human papillomavirus (HPV)
CPT/HCPCS: 88142; 87624

== ENCOUNTER 2023-10-18 03:01 | Outpatient (CLI) | payer MEDICAID, SELFPAY ==
[2023-10-18 07:52] LABS: BUN 7 mg/dL (7-18); CREATININE 0.9 mg/dL (0.55-1.02); Chloride 104 mmol/L (98-107); Estimated GFR 81.35 (mL/min/1.73m2); Glucose 117 mg/dL (74-106); Potassium 3.2 mmol/L (3.5-5.1); Sodium 142 mmol/L (136-145)
[2023-10-19 11:22] LABS: IgA 297 mg/dL (85-499); Interpretation (See Note); Tissue Transglutaminase IgA <4.0 CU (<20.0)
== END 2023-10-18 03:02 | disposition home or self-care (01) ==
LOC: LBO 03:12
PROVIDERS: PCP Nurse Practitioner Family; Visit Provider Nurse Practitioner Family
DX: R14.0 Abdominal distension (gaseous) (principal); I10 Essential (primary) hypertension
CPT/HCPCS: 36415; 80048; 82784; 83516

== ENCOUNTER 2023-11-05 13:19 | Day surgery (SDC) | payer MEDICAID, SELFPAY ==
--- NOTE | 2023-11-04 18:53 | W.PM.DSUDISC ---
Date of service: 11/05/23 Time of Service: 16:08 Discharge Plan Disposition Patient Disposition: Home Condition: Good Discharge Details Reason For Visit: EGD and colonoscopy Attending Provider: Yovani Trevino Primary Care Provider: Radha Shea Home Meds and New Rx's Prescriptions: Continued buspirone 10 mg tablet 10 - 20 mg PO TID Qty: 420 3RF Rx Instructions: Take 2 tabs in the AM, 2 tabs in the afternoon and 1 tab at bedtime sumatriptan succinate 50 mg tablet 50 mg PO Q2H PRN (Reason: migraine headache) Qty: 60 1RF Rx Instructions: Take 1 tablet with ibuprofen at onset of headache, if no improvement, take another in 2hrs nicotine 10 mg cartridge 1 inh inhalation .6-16X/DAY PRN (Reason: nicotine cravings) Qty: 168 4RF Rx Instructions: 6 to 16 cartridges/day for first 6-12 weeks. Gradually reduce use over next 6-12wks. albuterol sulfate 90 mcg/actuation HFA aerosol inhaler 2 inh inhalation Q6H PRN (Reason: shortness of breath or wheezing) sertraline [Zoloft] 100 mg tablet 200 mg PO DAILY Qty: 90 3RF phentermine 37.5 mg capsule 37.5 mg PO DAILY Qty: 90 3RF acetaminophen 500 mg capsule 1,000 mg PO HS PRN losartan 25 mg tablet 25 mg PO DAILY Qty: 90 3RF ibuprofen 600 mg tablet 600 mg PO Q6H PRN Patient Comments: TAKE ONE TABLET BY MOUTH EVERY 8 HOURS FOR 5 DAYS cetirizine 10 mg tablet 10 mg PO DAILY PRN (Reason: allergy symptoms) Qty: 90 3RF omeprazole magnesium 20 mg tablet,delayed release (DR/EC) 20 mg PO DAILY Qty: 90 3RF meloxicam 15 mg tablet 15 mg PO DAILY PRN (Reason: pain) Qty: 90 1RF potassium chloride 20 mEq tablet extended release 20 meq PO DAILY Qty: 30 0RF Discontinued polyethylene glycol 3350 17 gram/dose powder 238 g PO ONCE Qty: 238 0RF Rx Instructions: take per colonoscopy instructions bisacodyl [Dulcolax (bisacodyl)] 5 mg tablet,delayed release (DR/EC) 5 mg PO ONCE Qty: 4 0RF Rx Instructions: take per colonoscopy instructions Discharge Instructions Additional Instructions: Marisol, we were able to complete your upper and lower endoscopy today. The upper portion looks totally normal. Esophagus is wide open, with no evidence of any chronic inflammation. Stomach is totally normal, and I do not see any signs of active gastric inflammation that would explain abdominal discomfort. The connection between your esophagus and your stomach which is also known as the GE junction looks normal. Like we talked about beforehand, I did do multiple biopsies all along here to see if I can find anything that is not evident to the naked eye. Your colonoscopy went very smoothly. Your prep was excellent and I could see everything just fine. I was able to get from the anus all the way into the terminal ileum, which is the last part of the small intestine. I do not see any signs of anything like Crohn's disease, ulcerative colitis, diverticulosis, or any other abnormalities of your large intestine. Similar to your upper endoscopy, I performed biopsies all along the length of the colon as well. Once I have the results of all the biopsies I will be in touch with any other recommendations. 1. If tolerated, consume a soft, low fiber diet for 1-2 days. 2[address] Do not drive, drink alcohol, operate machinery, make critical decisions, or do activities that require coordination or balance for 24 hours. 3. Because air was put into your colon during the procedure, expelling air from your rectum (passing gas or farting) is normal. 4. You may not have a bowel movement for 1-3 days because of the colonoscopy prep. This is normal. 5. You may experience a sore throat for 24 to 48 hours. You may use throat lozenges or gargle with warm salt water to relieve the discomfort. 6. Because air was put into your stomach during the procedure, you may experience some belching. 7. Go directly to the emergency room if you notice any of the following: Develop chills (warm to touch), or if you have a thermometer and your temperature is above 101 Difficulty breathing or difficultly swallowing Persistent vomiting Severe abdominal pain, other than gas cramps Severe chest pain Black, tarry stools Any bleeding ? exceeding one tablespoon 8. Call your physician if the site where your intravenous was started becomes red, swollen, painful, and warm to touch. 9. Your physician has reviewed your pre-procedure medications. Please continue to take those medications as previously ordered. You will be given specific information/education regarding any changes to your medications before leaving. Activity:: Activity as Tolerated Diet:: As Tolerated Discharge Orders Discharge Orders: Discharge Order (Routine); Ordered 11/04/23 Ordered By: Yovani Trevino DS: Diagnosis Discharge Diagnosis (1) Abdominal bloating: Status: Acute Asessment and Plan: Follow-up gastroscopy and colonoscopy biopsies
--- NOTE | 2023-11-04 18:59 | W.PM.ENDDOP ---
Date of service: 11/05/23 Time of Service: 16:15 Endoscopy Report DATE OF PROCEDURE: 11/05/23 PRE-OP DIAGNOSIS: bloating POST-OP DIAGNOSIS: same PROCEDURE: EGD with biopsies and Colonoscopy with biopsies SURGEON: Yovani Trevino ANESTHESIA TYPE: General:No Airway ESTIMATED BLOOD LOSS: 10 PATHOLOGY: other (Random biopsies of gastric antrum and body as well as esophagus; random biopsies of colon) COMPLICATIONS: None DISPOSITION: same day INDICATIONS: Marisol is a 43 year old woman who has been experiencing abdominal discomfort and bloating. PREP: Miralax/Dulcolax PROCEDURE START TIME: 15:11 PROCEDURE END TIME: 15:34 COLONOSCOPY RETRACTION TIME: 11 FINDINGS: Normal-appearing EGD with normal Z-line and GE junction at 38 cm from the incisors PROCEDURE DESCRIPTION: After the initiation of monitored anesthetic care, and with the assistance of a bite block, I advanced a standard gastroscope through the mouth past the hypopharynx and into the esophagus.? Under the direct vision of the scope, I advanced down the esophagus into the stomach.? The Z-line and GE junction were normal-appearing at 38 cm from the incisors. Advanced down into the stomach and insufflated until the gastric rugae were obliterated. I did not see any signs of gastritis. I performed retroflexion. I did not appreciate any signs of hiatal herniation. The gastric cardia and body look normal. I turned the camera back towards the gastric antrum and the incisura angularis which were normal. The pylorus was normal. I was able to navigate across the pylorus into the duodenum and advanced down to the third portion of the duodenum. There were no signs of duodenitis. Next, I brought the camera back up into the stomach. Because of the nonspecific symptoms, I did perform random biopsies of the gastric antrum and body to see if Helicobacter pylori or microscopic forms of gastritis might be a source of her discomfort. I then emptied the stomach and brought the camera back up to the GE junction. There was a little bit of mobility at the GE junction across what appeared to be the diaphragm hiatus. I suspect that in fact, there may be a small hiatal hernia here. I do not think that would account for the symptoms. I did not appreciate any obvious signs of Griffin's esophagus. I did perform some random biopsies of the lower esophagus to rule out esophagitis. I then brought the camera out along the length of the rest of the esophagus which was totally normal. Next, we rolled Marisol over to the left lateral decubitus position. I performed an external anorectal exam.? Perineum and skin were normal, as was the anal verge.? There was no evidence of external hemorrhoids.? Next, I performed a digital rectal exam.? I did not appreciate any abnormal findings.? Next, I advanced a colonoscope into the rectal vault.? I performed retroflexion.? This was normal.? Using insufflation, I then advanced the colonoscope beyond the rectal folds and into the sigmoid colon before advancing towards the cecum.? The scope was noted to be in the cecum by identification of the ileocecal valve and appendiceal orifice.? I cannulated the terminal ileum. The first several centimeters of the terminal ileum appeared totally normal. I saw no signs of any inflammation. I then began withdrawing the colonoscope using repeated irrigation as necessary for full evaluation of the colonic mucosa. ?Once the scope was withdrawn to the level of the rectum, great care was taken to examine portions of the rectal folds.? In summary, I did not find any signs of Crohn's disease, ulcerative colitis, diverticulosis, or any other pathology that would explain her symptoms. I did perform random biopsies all along the length of the large intestine to rule out microscopic colitis as a source. Biopsies were performed with cold forceps, there was minimal bleeding at all points. Finally, the scope was withdrawn and the patient was brought to the same-day surgery recovery unit as the anesthetic wore off. ?The findings and instructions were shared with the patient prior to discharge.
[2023-11-05] MEDS: Lactated Ringers 1,000 ML 80 ML IV (13:55)
[2023-11-05 13:57] VITALS: BP 129/91; PULSE 80; RESP 18; TEMP 36.5; O2SAT 98
--- NOTE | 2023-11-05 14:17 | W.ANESPRE ---
General Info Date of Service Date Performed: 11/05/23 Height: 5 ft 5 in Weight: 104.1 kg Body Mass Index (BMI): 38.2 Surgical Procedure: Operation Date: 11/05/23 15:05 Proposed Procedure Side Surgeon p Colonoscopy/Gastroscopy Yovani Trevino MD Meds Allergies and Home Medications Allergies Allergy/AdvReac Type Severity Reaction Status Date / Time Penicillins Allergy Unknown Verified 11/05/23 13:38 azithromycin AdvReac Severe Syncopal Verified 11/05/23 13:38 episode bupropion AdvReac Intermediate IRRITABILITY; Verified 11/05/23 13:38 ANGER erythromycin base AdvReac Intermediate Nausea Verified 11/05/23 13:38 [Erythromycin Base] Home Medication Medication Instructions Recorded acetaminophen 500 mg capsule 1,000 mg PO HS PRN 02/19/21 albuterol sulfate 90 mcg/actuation 2 inh inhalation Q6H PRN shortness 12/02/22 aerosol inhaler of breath or wheezing buspirone 10 mg tablet 10 - 20 mg (1 - 2 x 10 mg) PO TID 01/13/23 #420 tab-caps nicotine 10 mg inhalation cartridge 1 inh inhalation .6-16X/DAY PRN 01/13/23 nicotine cravings #168 ea sumatriptan succinate 50 mg tablet 50 mg PO Q2H PRN migraine headache 01/13/23 #60 tabs cetirizine 10 mg tablet 10 mg PO DAILY PRN allergy 03/12/23 symptoms #90 tabs losartan 25 mg tablet 25 mg PO DAILY #90 tabs 05/05/23 omeprazole magnesium 20 mg 20 mg PO DAILY #90 tabs 07/19/23 tablet,delayed release phentermine 37.5 mg capsule 37.5 mg PO DAILY #90 caps 07/19/23 sertraline 100 mg tablet (Zoloft) 200 mg (2 x 100 mg) PO DAILY #90 07/19/23 tabs ibuprofen 600 mg tablet 600 mg PO Q6H PRN 10/11/23 meloxicam 15 mg tablet 15 mg PO DAILY PRN pain #90 tabs 10/20/23 potassium chloride 20 mEq 20 meq PO DAILY #30 tabs 10/21/23 tablet,extended release Current Visit Medications: Current Medications Generic Name Dose Route Start Last Admin Trade Name Freq PRN Reason Stop Dose Admin Hyoscyamine Sulfate 0.125 mg 11/04/23 19:00 Hyoscyamine 0.125 Mg Sl/Oral/Chew SL 12/04/23 18:59 DIRECTED PRN Ringer's Solution 1,000 mls @ 80 mls/hr 11/05/23 06:00 11/05/23 13:55 IV 11/05/23 23:59 80 mls/hr INFUSION ANNETTE Administration IV Miscellaneous Supplies 1 each 11/05/23 06:00 Iv Access IV 11/05/23 23:59 DIRECTED ANNETTE Ondansetron HCl 4 mg 11/04/23 19:00 Ondansetron 4 Mg/2 Ml Vial IVP 12/04/23 18:59 Q4H PRN PRN Nausea / Vomiting Sodium Chloride 0 ml 11/05/23 06:00 Normal Saline Flush 10 Ml Syr IV 11/05/23 23:59 PRN PRN Sodium Chloride 0 ml 11/05/23 06:00 Normal Saline 10 Ml Vial IJ 11/05/23 23:59 DIRECTED PRN Sterile Water 0 ml 11/05/23 06:00 Water,Injection,Sterile 10 Ml Vial IJ 11/05/23 23:59 DIRECTED PRN PFSH Active Problems Active Problems: Problem Status Onset Code Abdominal bloating R14.0 Abnormal bowel habits R19.8 Hypertension I10 Hyperlipidemia E78.5 Endometriosis N80.9 PCOS (polycystic ovarian syndrome) E28.2 Chronic pelvic pain in female R10.2, G89.29 Generalized anxiety disorder F41.1 Depressive disorder F32.9 Gastroesophageal reflux disease without esophagitis K21.9 Lumbar back pain with radiculopathy affecting right lower extremity M54.16 Migraine headache G43.909 Obesity (BMI 30-39.9) E66.9 Lipoma of forehead D17.0 Cigarette smoker F17.210 Medical History Medical History COVID-19 (~11/2022) Bilateral kidney stones Left ovarian cyst Right ovarian cyst Medical History Comments:: Pt. indicates she crashed after one procedure but doesn't know why states it was during last [employer] surgery here but nothing indicate that on records Surgical History Surgical History Status post hysteroscopy (06/09/19) History of endometrial ablation History of bilateral ligation of fallopian tubes Hx of bursectomy (02/04/15) Excision of chronically inflamed prepatellar bursa, left knee. S/P excision of ganglion cyst (03/20/14) Of right ankle Tobacco Smoking/Tobacco Use Status: Current every day Tobacco Type: cigarettes Smoking packs per day: 0.75 Smoking cigarettes per day: 4 Years smoked: 20 Smoking pack-years: 15.00 and e-cigarettes Passive smoking exposure: Yes Second hand exposure: Yes Counseling given: provider counseling Alcohol Alcohol Intake: never Substance Use Substance use: Daily Substance use type: marijuana Details: pt vapes daily last marijuana use today, 11/05/23 Prental History History 2 Para 2 Hx # Term Pregnancies Multiple births Hx # Pregnancies Ectopic pregnancies AB induced Hx Number of Living Children 2 AB spontaneous Vital Signs and Lab Results Vital Signs Most Recent Vital Signs in EMR: Most Recent Vital Signs Temp Pulse Resp BP Pulse Ox 36.5 C 80 18 129/91 H 98 11/05/23 13:57 11/05/23 13:57 11/05/23 13:57 11/05/23 13:57 11/05/23 13:57 Point of Care Results Point of Care Results: POC- Test(urine) Negative 11/05/23 13:41 Lab Results Blood Type / Crossmatch: No Data to Display Complete Blood Count: No Data to Display Complete Metabolic Panel: Sodium 142 mmol/L (136-145) 10/18/23 07:10 Potassium 3.2 mmol/L (3.5-5.1) L 10/18/23 07:10 Chloride 104 mmol/L (98-107) 10/18/23 07:10 Carbon Dioxide 28.0 mmol/L (21.0-32.0) 10/18/23 07:10 BUN 7 mg/dL (7-18) 10/18/23 07:10 Creatinine 0.9 mg/dL (0.55-1.02) 10/18/23 07:10 Est GFR (CKD-EPI 2020) 81.35 (mL/min/1.73m2) 10/18/23 07:10 Calcium 9.0 mg/dL (8.5-10.1) 10/18/23 07:10 Glucose 117 mg/dL (74-106) H 10/18/23 07:10 Liver Function Panel: No Data to Display Coagulation Panel: No Data to Display Cardiac Panel: No Data to Display Arterial Blood Gas: No Data to Display Venous Blood Gas: No Data to Display Pancreas Panel: No Data to Display Thyroid Panel: No Data to Display Infectious Disease: No Data to Display Blood Cultures: No Data to Display Toxicology Panel: No Data to Display Panel: No Data to Display Anesthesia Assessment and Plan Anesthesia History Personal History: No History of Anesthesia Complications and Other Family History: No Family History of Anesthesia Complications Exercise Tolerance Exercise Tolerance: Metabolic Equivalents>4 Pertinent Negatives Pertinent Negatives: No Symptoms of GERD, No Major Cardiovascular Symptoms or Complaints, No Major Pulmonary Symptoms or Complaints and No History of CVA/TIA Cardiac & Pulmonary Exam Cardiac Exam: Normal S1/S2 Heart Sounds Pulmonary Exam: Clear Bilateral Breath Sounds Cardiac and Pulmonary Comment:: Inhaler prescribed for bronchitis only Implantable Cardiac Device Does patient have a Pacemaker or an ICD?: No Airway Exam Known Difficult Airway: No Mallampati Class: 2 Mouth Opening: Normal (> 3cm) Thyromental Distance: Greater than 3 cm Neck Range of Motion: Full ROM Neck Circumference: Normal Teeth Condition: Normal Dentition ASA Classification ASA Score: ASA 2 Emergency Case?: No NPO Status NPO Status: NPO Clears >2 hours, Solids >8 hours Status Status: Negative HCG Anesthesia Plan Resuscitation Status: Full Code Anesthesia Technique: General Anesthesia Airway Planned: Natural Airway Monitors Used: Standard Monitors
[2023-11-05 14:47] VITALS: BMI 38.2
--- NOTE | 2023-11-05 15:16 | STOM_PTH ---
PATIENT: Marisol Castro LOC: [facility] U#:[id number] AGE/SX: 43/F ROOM: RE11/05/[address]: Yovani Trevino MD : [id number] BED: DIS: 11/05/2023 SPEC #: [id number] RECD: 11/05/23 17:36 STATUS: TORRIE RE #: [id number] CRISTOFER: 11/05/23 15:[address]: Yovani Trevino DEPT: Surgical Specimen RECD BY: Arianne Laird ENTERED: 11/05/23 17:37 SP TYPE: STOMACH OTHR DR: Radha Shea, BUSINESS CONTINUITY MANAGEMENT DIRECTOR Tissues: 1 - STOMACH BIOPSY 2 - STOMACH BIOPSY 3 - ESOPHAGUS BIOPSY 4 - BIOPSY BOWEL Procedures: GROSS AND MICRO LEVEL 4 Comments: [id number]
[2023-11-05 15:43] VITALS: BP 126/78; PULSE 18; RESP 75; TEMP 36.6; O2SAT 98
[2023-11-05 16:12] VITALS: BP 116/83; PULSE 65; RESP 18; TEMP 36.6; O2SAT 100
--- NOTE | 2023-11-05 16:20 | W.ANESPOSTOP ---
Postoperative Evaluation Date, Time and Location Date Performed: 11/05/23 Time Performed: 16:20 Patient Location: Day Surgery Unit Vital Signs Most Recent Imported Vital Signs: Most Recent Vital Signs Temp Pulse Resp BP Pulse Ox 36.6 C 18 L 75 H 126/78 98 11/05/23 15:43 11/05/23 15:43 11/05/23 15:43 11/05/23 15:43 11/05/23 15:43 Pain Score Most Recent Pain Score: Most Recent Pain Score Pain Level 0 11/05/23 15:43 Assessment Mental Status: Awake (Alert & Oriented to Patient Baseline) Airway and Respiratory Function: Patent airway with normal (patient baseline) respiratory exam Cardiovascular Function: Hemodynamically Stable Hydration Status: Adequately Hydrated Nausea & Vomiting: No Nausea or Vomiting Pain: Pain is tolerable per patient (Discomfort right lower lip, informed patient that during the gastroscopy she spit out th ebite block and we needed to reinsert it and her lip must have briefly gotten caught between the bite block and her teeth until readjusted. Ice given to patient to apply to lip.) Peripheral Nerve Block: Patient did not receive a nerve block
== END 2023-11-05 16:50 | disposition home or self-care (01) ==
LOC: SUR 13:20
PROVIDERS: PCP Nurse Practitioner Family; Visit Provider Surgery
PROC: (CPT 45380; principal; 2023-11-05 15:00)
DX: R14.0 Abdominal distension (gaseous) (principal); K21.9 Gastro-esophageal reflux disease without esophagitis; E66.9 Obesity, unspecified; I10 Essential (primary) hypertension; F17.210 Nicotine dependence, cigarettes, uncomplicated
CPT/HCPCS: 45380; 43239; 81025; 88305; J2405; J2704

== ENCOUNTER 2023-11-06 01:46 | Emergency (ER) | payer MEDICAID, SELFPAY ==
[2023-11-06 01:43] VITALS: BP 102/49; PULSE 74; RESP 18; TEMP 36.2; O2SAT 99
--- NOTE | 2023-11-06 02:15 | DI.CT_ITS ---
Exam(s) CT CHEST/ABD/PEL W EXAM: CT CHEST/ABD/PEL W CLINICAL HISTORY: upper abdominal pain, EGD/colonospocy today TECHNIQUE: Imaging Protocol: Axial computed tomography images with coronal and sagittal reformatted images were created and reviewed CONTRAST MATERIAL: Intravenous: Omnipaque 350 contrast volume:100 mL Oral: No COMPARISON: CT CT CHEST PE CTA from 11/23/[address] CHEST PE CTA from 04/24/2023 FINDINGS: CHEST: Tracheobronchial tree: Patent where visualized. Pulmonary parenchyma: No consolidation or dominant measurable mass. No architectural distortion. Visualized thyroid gland: Unremarkable. Mediastinum and Eufemia: No dominant adenopathy or fluid collection. The esophagus is unremarkable. Pleura: No effusion or pneumothorax. Heart: The heart is not dilated. No coronary artery calcifications are seen. No pericardial effusion. Pulmonary arteries: Due to the timing of the bolus, opacification of the pulmonary arteries is subopt imal. No large central pulmonary embolus is present. Aorta: Thoracic aorta non-dilated. Minimal atherosclerosis. Lymph nodes: Within normal limits. Soft tissues: Unremarkable. Bones:Within normal limits for the patient's age. ABDOMEN: Liver: Normal density. No measurable mass. Portal, Superior Mesenteric, and Splenic Veins: Unremarkable. Gallbladder and Biliary Tract: No radiodense calculus or dilation. Pancreas: Normal density, no abnormal calcifications or inflammatory process. Spleen: Normal. Adrenals: No masses seen. Kidneys: Normal size, contour and axis. Bilateral nephrolithiasis. No obstructive uropathy. No mass es seen. Abdominal Aorta: Abdominal portion non-dilated. Bowel: The stomach is incompletely distended but grossly unremarkable. Appendix is unremarkable. Peritoneal Cavity: No ascites, collection or mesenteric inflammatory response. No free air. Lymph Nodes: Within normal limits. Bones: Within normal limits for the patient's age. Soft Tissues: Unremarkable. PELVIS: Bladder: Symmetric distention, no gross wall thickening. Reproductive Organs: Unremarkable as visualized. Lymph Nodes: Within normal limits. Bones: Within normal limits. IMPRESSION: 1. Unremarkable CT scan of the abdomen and pelvis. 2. Unremarkable CT scan of the chest. 3. No evidence of pneumomediastinum or pneumoperitoneum. RADIATION DOSE DELIVERED: 1,554.98mGy.cm Total DLP DATA REPOSITORY: All CT scans at this facility are submitted to the National Radiology Data Registry (NRDR) Dose Index Registry (DIR) with the [employer] (A[employer]). RADIATION OPTIMIZATION: All CT scans at this facility use at least one of these dose optimization te chniques: automated exposure control; mA and/or kV adjustment per patient size (includes targeted exa ms where dose is matched to clinical indication); or iterative reconstruction.
[2023-11-06 02:33] LABS: Abs Immature Grans 0.05 10^3/uL (0.0-0.06); Absolute Lymphocyte Count 3.59 10^3/uL (1.2-3.4); Absolute Monocyte Count 1.02 10^3/uL (0.1-0.8); Basophils % 0.3; Eosinophils % 0.5; HCT 43.7 % (36.0-46.0); HGB 14.4 g/dL (11.2-15.7); Immature Grans % 0.3; Lymphocytes % 24.4; MCH 29.8 pg (27.0-33.0); MCV 91 fL (80-95); MPV 9.3 fL (8.0-11.0); Monocytes % 6.9; Neutrophils % 67.6; Platelet Count 342 10^3/uL (130-400); RBC 4.83 10^6/uL (3.93-5.22); RDW 11.9 % (11.7-14.6); RDW-SD 39.8 fL; WBC 14.72 10^3/uL (4.4-10.8)
[2023-11-06 02:34] LABS: Absolute Basophil Count 0.04 10^3/uL (0.0-0.2); Absolute Eosinophil Count 0.07 10^3/uL (0.0-0.7); Absolute Neutrophil Count 9.95 10^3/uL (1.2-6.7)
[2023-11-06] MEDS: Pantoprazole 40 MG VIAL IVP (02:38)
[2023-11-06] MEDS: MORPHine 10 MG/ML VIAL 6 MG IVP (02:38)
[2023-11-06] MEDS: Normal Saline 1,000 ML 1000 ML IV (02:39)
[2023-11-06] MEDS: Ondansetron 4 MG/2 ML VIAL IVP (02:39)
[2023-11-06 02:46] LABS: HCG Qual (Serum) Negative
[2023-11-06 02:53] LABS: Troponin I < 50 ng/L (<or=60)
[2023-11-06 02:55] VITALS: BP 101/78; PULSE 89; RESP 21; TEMP 37.1; O2SAT 98
[2023-11-06 02:56] LABS: ALT 21 U/L (14-59); AST 11 U/L (15-37); Alkaline Phosphatase 116 U/L (46-116); Anion Gap 7.6 mmol/L (3-11); BUN 12 mg/dL (7-18); Bilirubin, Total 0.3 mg/dL (0.2-1.0); CO2 30.4 mmol/L (21.0-32.0); Calcium 9.5 mg/dL (8.5-10.1); Chloride 101 mmol/L (98-107); Estimated GFR 71.69 (mL/min/1.73m2); Glucose 116 mg/dL (74-106); Lipase 38 U/L (16-77); Potassium 3.3 mmol/L (3.5-5.1); Sodium 139 mmol/L (136-145); Total Protein 8.2 g/dL (6.4-8.2)
--- NOTE | 2023-11-06 03:08 | W.ED.GENAD ---
HPI General Stated Complaint: Abd Prob SARABJIT: 3 Date/Time Provider Initiated Documentation: 11/06/23 02:25. 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 The patient had a endoscopy and colonoscopy today, and tells me that she was doing relatively well before coming to the emergency room by ambulance tonight. Approximately an hour before she called EMS, the patient tells me that she developed upper abdominal discomfort which caused her to feel nauseated, faint, and tremulous. She tells me that she developed sweating while she was at rest at home secondary to the pain. The patient denies any symptoms after the initial procedure, and tells me that she had a normal recovery both in PACU and at home today. There are no new medications that the patient is taking at this time. Related Data Home Medications Medication Instructions Recorded Confirmed acetaminophen 500 mg capsule 1,000 mg PO HS PRN 02/19/21 11/06/23 albuterol sulfate 90 mcg/actuation 2 inh inhalation Q6H PRN shortness 12/02/22 11/06/23 aerosol inhaler of breath or wheezing buspirone 10 mg tablet 10 - 20 mg (1 - 2 x 10 mg) PO TID 01/13/23 11/06/23 #420 tab-caps nicotine 10 mg inhalation cartridge 1 inh inhalation .6-16X/DAY PRN 01/13/23 11/06/23 nicotine cravings #168 ea sumatriptan succinate 50 mg tablet 50 mg PO Q2H PRN migraine headache 01/13/23 11/06/23 #60 tabs cetirizine 10 mg tablet 10 mg PO DAILY PRN allergy 03/12/23 11/06/23 symptoms #90 tabs losartan 25 mg tablet 25 mg PO DAILY #90 tabs 05/05/23 11/06/23 omeprazole magnesium 20 mg 20 mg PO DAILY #90 tabs 07/19/23 11/06/23 tablet,delayed release phentermine 37.5 mg capsule 37.5 mg PO DAILY #90 caps 07/19/23 11/06/23 sertraline 100 mg tablet (Zoloft) 200 mg (2 x 100 mg) PO DAILY #90 07/19/23 11/06/23 tabs ibuprofen 600 mg tablet 600 mg PO Q6H PRN 10/11/23 11/06/23 meloxicam 15 mg tablet 15 mg PO DAILY PRN pain #90 tabs 10/20/23 11/06/23 potassium chloride 20 mEq 20 meq PO DAILY #30 tabs 10/21/23 11/06/23 tablet,extended release Previous Rx's Medication Instructions Recorded buspirone 10 mg tablet 10 - 20 mg (1 - 2 x 10 mg) PO TID 01/13/23 #420 tab-caps nicotine 10 mg inhalation cartridge 1 inh inhalation .6-16X/DAY PRN 01/13/23 nicotine cravings #168 ea sumatriptan succinate 50 mg tablet 50 mg PO Q2H PRN migraine headache 01/13/23 #60 tabs cetirizine 10 mg tablet 10 mg PO DAILY PRN allergy 03/12/23 symptoms #90 tabs losartan 25 mg tablet 25 mg PO DAILY #90 tabs 05/05/23 omeprazole magnesium 20 mg 20 mg PO DAILY #90 tabs 07/19/23 tablet,delayed release phentermine 37.5 mg capsule 37.5 mg PO DAILY #90 caps 07/19/23 sertraline 100 mg tablet (Zoloft) 200 mg (2 x 100 mg) PO DAILY #90 07/19/23 tabs meloxicam 15 mg tablet 15 mg PO DAILY PRN pain #90 tabs 10/20/23 potassium chloride 20 mEq 20 meq PO DAILY #30 tabs 10/21/23 tablet,extended release Allergies Allergy/AdvReac Type Severity Reaction Status Date / Time Penicillins Allergy Unknown Verified 11/06/23 01:55 azithromycin AdvReac Severe Syncopal Verified 11/06/23 01:55 episode bupropion AdvReac Intermediate IRRITABILITY; Verified 11/06/23 01:55 ANGER erythromycin base AdvReac Intermediate Nausea Verified 11/06/23 01:55 [Erythromycin Base] PFSH All Active Problems Acute epigastric pain (Acute) Chronic abdominal pain (Acute) Abdominal bloating (Acute) Abnormal bowel habits (Acute) Hypertension (Chronic) Hyperlipidemia (Chronic) Endometriosis (Chronic) PCOS (polycystic ovarian syndrome) (Chronic) Chronic pelvic pain in female (Chronic) Generalized anxiety disorder (Chronic) Depressive disorder (Chronic) Gastroesophageal reflux disease without esophagitis (Chronic) Lumbar back pain with radiculopathy affecting right lower extremity (Chronic) Migraine headache (Chronic) Obesity (BMI 30-39.9) (Chronic) Lipoma of forehead (Chronic) Cigarette smoker (Chronic) Medical History COVID-19 (~11/2022) Bilateral kidney stones Left ovarian cyst Right ovarian cyst Surgical History Status post hysteroscopy (06/09/19) History of endometrial ablation History of bilateral ligation of fallopian tubes Hx of bursectomy (02/04/15) Excision of chronically inflamed prepatellar bursa, left knee. S/P excision of ganglion cyst (03/20/14) Of right ankle Family History Mother No problems noted. Father No problems noted. Brother No problems noted. Daughter No problems noted. Son Asthma Maternal Grandfather No problems noted. Maternal Grandmother Essential hypertension Hyperlipidemia Paternal Grandfather No problems noted. Paternal Grandmother No problems noted. Social History Smoking/Tobacco Use Status: Current every day Tobacco Type: cigarettes Smoking packs per day: 0.75 Smoking cigarettes per day: 15.0 Years smoked: 20 Smoking pack-years: 15.00 and e-cigarettes Quit status: not considering quitting Second Hand Exposure: Yes Counseling given: provider counseling Smoking risk assessment performed?: Yes Alcohol Intake: never Drug use: Daily Substance use type: marijuana Details: pt vapes THC daily last marijuana use today, 11/05/23 Caregiver/Support person: No Household members: significant other Housing: apartment Communication Needs: None Do you need help understanding health information?: Rarely 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 Pets and animals: No Sexually active: Yes Do you think of yourself as: straight/heterosexual Current gender identity: male What is your relationship status?: living with partner How often do you talk on the phone with friends or family?: twice per week How often do you get together with friends or relatives?: once per week How often do you attend amish or scientologist services?: decline to answer Do you belong to any clubs or organized social groups?: no Panel score (0-1 are the most socially isolated patients): 2 What type of physical activity do you participate in: none Frequency: does not exercise Kailee/Jain: No preference Special kailee needs: No Seatbelt use: sometimes Helmet use: Yes Helmet use: sometimes Drive intox or ride w/intox feedmobile driver: No Do you feel safe at home: Yes Do you feel safe in your relationship?: Yes Female Reproductive History Menstrual control method: permanent sterilization History History 2 Para 2 Hx # Term Pregnancies Multiple births Hx # Pregnancies Ectopic pregnancies AB induced Hx Number of Living Children 2 AB spontaneous Exam Resp Other: The patient has clear bilateral lung sounds to auscultation. Cardio Other: The patient has a regular rate and rhythm with out any murmurs rubs or gallops. There is a normal S1 and S2 to auscultation. GI Other: The patient reports epigastric discomfort to palpation. She has normal auscultated bowel sounds in all 4 quadrants. Neuro Other: There are no focal neurologic deficits motor or sensory deficits appreciated on exam or reported. Extrem Other: The patient appears to have normal distal pulses bilaterally in all 4 extremities. There is no cyanosis, clubbing, edema, or mottling. Course Reevaluation(s) Initial Evaluation: The patient reports that her symptoms have improved and she would just like to go home. Her CT scan was negative for any acute findings. There were no significant laboratory abnormalities associated with this presentation. The patient be discharged with instructions to continue her current medications and follow-up with her regular providers who are working up her abdominal discomfort. Vital Signs Vital signs: Vital Signs Temperature 36.2 C L 11/06/23 01:43 Pulse 74 11/06/23 01:43 Respiratory Rate 18 11/06/23 01:43 Blood Pressure 102/49 L 11/06/23 01:43 Pulse Oximetry 99 11/06/23 01:43 Temperature 37.1 C 11/06/23 02:55 Temperature Source Temporal Artery Scan 11/06/23 02:55 Pulse 89 11/06/23 02:55 Respiratory Rate 21 11/06/23 02:55 Respiratory Effort Normal, Non-Labored 11/06/23 01:49 Blood Pressure 101/78 11/06/23 02:55 Blood Pressure Position Sitting 11/06/23 02:55 Pulse Oximetry 98 11/06/23 02:55 Oxygen Delivery Method Room Air 11/06/23 02:55 Oxygen Flow Rate 0 11/06/23 01:43 Pain Level 10 11/06/23 02:55 Comment pain comes and goes 11/06/23 01:43 Lab/Test Results Lab/Test Results: Laboratory Tests Range/Units 11/06/23 02:03 WBC (4.4-10.8) 10^3/uL 14.72 H RBC (3.93-5.22) 10^6/uL 4.83 Hgb (11.2-15.7) g/dL 14.4 Hct (36.0-46.0) % 43.7 MCV (80-95) fL 91 MCH (27.0-33.0) pg 29.8 MCHC (32.0-36.0) % 33.0 RDW (11.7-14.6) % 11.9 Plt Count (130-400) 10^3/uL 342 MPV (8.0-11.0) fL 9.3 Immature Gran % 0.3 Neutrophils % 67.6 Lymphocytes % 24.4 Monocytes % 6.9 Eosinophils % 0.5 Basophils % 0.3 Nucleated RBC % (0.0-0.3) % 0.0 Absolute Neutrophils (1.2-6.7) 10^3/uL 9.95 H Absolute Lymphocytes (1.2-3.4) 10^3/uL 3.59 H Absolute Monocytes (0.1-0.8) 10^3/uL 1.02 H Absolute Eosinophils (0.0-0.7) 10^3/uL 0.07 Absolute Basophils (0.0-0.2) 10^3/uL 0.04 Sodium (136-145) mmol/L 139 Potassium (3.5-5.1) mmol/L 3.3 L Chloride (98-107) mmol/L 101 Carbon Dioxide (21.0-32.0) mmol/L 30.4 Anion Gap (3-11) mmol/L 7.6 BUN (7-18) mg/dL 12 Creatinine (0.55-1.02) mg/dL 1.0 Est GFR (CKD-EPI 2020) (mL/min/1.73m2) 71.69 Glucose (74-106) mg/dL 116 H Calcium (8.5-10.1) mg/dL 9.5 Total Bilirubin (0.2-1.0) mg/dL 0.3 AST (15-37) U/L 11 L ALT (14-59) U/L 21 Alkaline Phosphatase (46-116) U/L 116 Troponin I (<or=60) ng/L < 50 Total Protein (6.4-8.2) g/dL 8.2 Albumin (3.4-5.0) g/dL 4.0 Lipase (16-77) U/L 38 Serum HCG, Qual Negative Medical Decision Making The patient was seen and examined. She has quite a history of chronic abdominal pain, and this does not seem particularly out of proportion to her prior presentations. The patient has essentially a normal laboratory workup in terms of liver function testing, lipase, and troponin. Because the patient had a colonoscopy and endoscopy today, she will undergo CT scanning to exclude any perforation or induced pericolonic hematoma. Assuming this is negative, this will essentially become pain management with ongoing referral to her current providers. Disposition depends on discovery of pathology. Quality:SDOR Health Related Social Needs: No Data to Display Discharge Plan Disposition Patient Disposition: Home Discharge Details Chief Complaint: Abd Prob Clinical Impression: Chronic abdominal pain, Acute epigastric pain Primary Care Provider: Radha Shea ED Provider: Kiel Tejada Home Meds and New Rx's Prescriptions: No Action buspirone 10 mg tablet 10 - 20 mg PO TID Qty: 420 3RF Rx Instructions: Take 2 tabs in the AM, 2 tabs in the afternoon and 1 tab at bedtime sumatriptan succinate 50 mg tablet 50 mg PO Q2H PRN (Reason: migraine headache) Qty: 60 1RF Rx Instructions: Take 1 tablet with ibuprofen at onset of headache, if no improvement, take another in 2hrs nicotine 10 mg cartridge 1 inh inhalation .6-16X/DAY PRN (Reason: nicotine cravings) Qty: 168 4RF Rx Instructions: 6 to 16 cartridges/day for first 6-12 weeks. Gradually reduce use over next 6-12wks. albuterol sulfate 90 mcg/actuation HFA aerosol inhaler 2 inh inhalation Q6H PRN (Reason: shortness of breath or wheezing) sertraline [Zoloft] 100 mg tablet 200 mg PO DAILY Qty: 90 3RF phentermine 37.5 mg capsule 37.5 mg PO DAILY Qty: 90 3RF acetaminophen 500 mg capsule 1,000 mg PO HS PRN losartan 25 mg tablet 25 mg PO DAILY Qty: 90 3RF ibuprofen 600 mg tablet 600 mg PO Q6H PRN Patient Comments: TAKE ONE TABLET BY MOUTH EVERY 8 HOURS FOR 5 DAYS cetirizine 10 mg tablet 10 mg PO DAILY PRN (Reason: allergy symptoms) Qty: 90 3RF omeprazole magnesium 20 mg tablet,delayed release (DR/EC) 20 mg PO DAILY Qty: 90 3RF meloxicam 15 mg tablet 15 mg PO DAILY PRN (Reason: pain) Qty: 90 1RF potassium chloride 20 mEq tablet extended release 20 meq PO DAILY Qty: 30 0RF Discharge Instructions Instructions: Abdominal Pain (ED) Additional Instructions: Continue current medications as previously directed. Continue to follow-up with your regular health providers who are working up your abdominal discomfort. You can always return to the ER for any new concerns or sudden change in health which you feel require emergency medical attention.
[2023-11-06] MEDS: Omnipaque 350 MG/ML 100 ML BTL IJ (03:32)
[2023-11-06] MEDS: Normal Saline - Diluent 50 ML VIAL IJ (03:33)
[2023-11-06] MEDS: Normal Saline Flush 10 ML SYR IVP (03:34)
[2023-11-06 04:08] LABS: Bilirubin Negative (Negative); Blood Trace-lysed (Negative); Clarity Clear (Clear); Glucose Negative (Negative); Ketones Negative (Negative); Leukocyte Esterase Negative (Negative); Nitrite Negative (Negative); Urobilinogen 0.2 mg/dL (Up to 0.2); pH 5.5 (5-8)
[2023-11-06 04:12] LABS: Bacteria Few HPF (Negative); C & S Indicated? No; Casts Negative LPF (Negative); Crystals Negative HPF (Negative); Epithelial Cells Few HPF (Negative); Mucus Negative (Negative); WBC 0-2 HPF (0-5)
--- NOTE | 2023-11-06 05:11 | DI.VRAD_ITS ---
PROCEDURE INFORMATION: Exam: CT Chest With Contrast; Diagnostic Exam date and time: 11/06/2023 3:17 AM Age: 43 years old Clinical indication: Abdominal pain; Epigastric; Other: Upper abd pain; Prior surgery; Surgery date: Post-operative (0-2 days); Surgery type: Egd/colonoscopy x today TECHNIQUE: Imaging protocol: Diagnostic computed tomography of the chest with contrast. 3D rendering (Not supervised by radiologist): MIP and/or 3D reconstructed images were created by the technologist. Contrast material: OMNI 350; Contrast volume: 100 ml; Contrast route: INTRAVENOUS (IV); COMPARISON: CT CHEST PE CTA 04/24/2023 10:17 PM FINDINGS: Lungs: Unremarkable. No consolidation. No masses. Pleural spaces: No pneumothorax or pleural effusion. Heart: Unremarkable. No cardiomegaly. No pericardial effusion. Mediastinal space: No pneumomediastinum. Esophagus is unremarkable. Lymph nodes: Unremarkable. No enlarged lymph nodes. Vasculature: Unremarkable. No aortic aneurysm. Bones/joints: Unremarkable. No acute fracture. Soft tissues: Unremarkable. IMPRESSION: No acute findings. PROCEDURE INFORMATION: Exam: CT Abdomen And Pelvis With Contrast Exam date and time: 11/06/2023 3:17 AM Age: 43 years old Clinical indication: Abdominal pain; Epigastric; Other: Upper abd pain; Prior surgery; Surgery date: Post-operative (0-2 days); Surgery type: Egd/colonoscopy x today TECHNIQUE: Imaging protocol: Computed tomography of the abdomen and pelvis with contrast. 3D rendering (Not supervised by radiologist): MIP and/or 3D reconstructed images were created by the technologist. Contrast material: OMNI 350; Contrast volume: 100 ml; Contrast route: INTRAVENOUS (IV); COMPARISON: CT ABD/PELVIS W CONTRAST 09/20/2023 10:46 AM FINDINGS: Liver: Normal. No mass. Gallbladder and bile ducts: Normal. No calcified stones. No ductal dilation. Pancreas: Unremarkable. Spleen: Normal. Adrenal glands: Normal. No mass. Kidneys and ureters: Nonobstructing stones in the kidneys bilaterally. Stomach and bowel: Unremarkable. No bowel wall thickening or intestinal obstruction. Appendix: Normal appendix. Intraperitoneal space: Unremarkable. No pneumoperitoneum. No abscess. Vasculature: Unremarkable. Lymph nodes: Unremarkable. Urinary bladder: Unremarkable as visualized. Reproductive: Unremarkable as visualized. Bones/joints: Unremarkable. No acute fracture. Soft tissues: Unremarkable. IMPRESSION: No acute findings. Dictated and Authenticated by: Ramon Ruvalcaba MD. Ordering:PAULA Dyson MD
[2023-11-06 05:46] VITALS: BP 116/74; PULSE 69; RESP 14; TEMP 36.6; O2SAT 98
== END 2023-11-06 05:46 | disposition home or self-care (01) ==
PROVIDERS: Emergency Provider Emergency Medicine Emergency Medical Services; PCP Nurse Practitioner Family
DX: R10.32 Left lower quadrant pain (principal); R10.13 Epigastric pain; R11.0 Nausea
CPT/HCPCS: 74177; 80053; 83690; 96361; 96374; 96375; 99285; 71260; 81003; 81015; 84484; 84703; 85025; 99283; J2270; J2405; J2470; J3490

== ENCOUNTER → 2023-11-24 01:42 | Outpatient (CLI) | payer MEDICAID, SELFPAY ==
--- NOTE | 2023-11-24 07:00 | DI.US_ITS ---
Exam(s) US ABDOMEN LIMITED EXAM: US ABDOMEN LIMITED CLINICAL HISTORY: PRE DAGMAR, ABD BLOATING,? BILIARY DYSKINESIA,R14.0 TECHNIQUE: Ultrasound abdomen performed using standard protocol. COMPARISON: US US PELVIC ULTRASOUND from 09/20/[address] ABD/PELVIS W CONTRAST from 09/20/[address] CHEST/ABD/PEL W from 11/06/2023 FINDINGS: Limited exam focused on the gallbladder. LIVER: Normal size and echogenicity. GALLBLADDER: No evidence of cholelithiasis. No evidence of wall thickening. No pericholecystic fluid identified. SHARMA'S SIGN: Negative. BILIARY SYSTEM: No intrahepatic or extrahepatic biliary ductal dilation. PANCREAS: Normal where visualized. ASCITES: None seen. IMPRESSION: Normal sonographic appearance of the gallbladder DATA REPOSITORY:
--- NOTE | 2023-11-24 07:00 | DI.NM_ITS ---
Exam(s) NM HEPATOBILIARY CCK GRP EXAM: MO HEPATOBILIARY CCK GRP CLINICAL HISTORY: ? biliary dySkensia,ABD BLOATING,R14.0. TECHNIQUE: Injected dose: 5 mCi Tc-99 mebrofenin Initial dynamic images: 60 minutes Post-Gallbladder fillin.6 micrograms Kinevac via IV drip over 45 minutes. Additional images: 45 minute dynamic during CCK administration. COMPARISON: US US ABDOMEN LIMITED from 11/24/2023 FINDINGS: Normal hepatic transit time. Prompt excretion into the small bowel. Prompt excretion into the gallbladder. Gallbladder ejection fraction: Abnormally low at 16 percent. IMPRESSION: 1. Low gallbladder ejection flexion of 16 percent [facility] guidelines: Gallbladder visualization should be present by 3 hours. Delayed [id number] fuller sit beyond 60 min raises the suspicion for partial common bile duct (CBD) obstruction. Gallbladder ejection fraction <35% has a good correlation with acalculous disease (i.e., chronic acal culous cholecystitis, cystic duct syndrome, sphincter of Oddi disease).
[2023-11-24] MEDS: Sincalide 5 MCG VIAL 1.6 MCG IJ (10:17)
[2023-11-24] MEDS: Water,Injection,Sterile 10 ML VIAL IJ (10:19)
== END ==
PROVIDERS: PCP Nurse Practitioner Family; Visit Provider Surgery
DX: R14.0 Abdominal distension (gaseous) (principal)
CPT/HCPCS: 78227; J2805; 76705

== ENCOUNTER 2023-12-31 06:08 | Day surgery (SDC) | payer MEDICAID, SELFPAY ==
--- NOTE | 2023-12-30 18:16 | PDOC.DSDIS_ITS ---
Date of service: 12/31/23 Time of Service: 09:19 Discharge Plan Disposition Patient Disposition: Home Condition: Good Discharge Details Reason For Visit: Laparoscopic cholecystectomy Attending Provider: Yovani Trevino Primary Care Provider: Radha Shea Home Meds and New Rx's Prescriptions: New tramadol 50 mg tablet 50 mg PO Q8H PRNQty: 12 0RF Rx Instructions: Take 1 tablet by mouth if needed for more severe pain. Continued buspirone 10 mg tablet 10 - 20 mg PO TID Qty: 420 3RF Rx Instructions: Take 2 tabs in the AM, 2 tabs in the afternoon and 1 tab at bedtime sumatriptan succinate 50 mg tablet 50 mg PO Q2H PRN (Reason: migraine headache) Qty: 60 1RF Rx Instructions: Take 1 tablet with ibuprofen at onset of headache, if no improvement, take another in 2hrs nicotine 10 mg cartridge 1 inh inhalation .6-16X/DAY PRN (Reason: nicotine cravings) Qty: 168 4RF Rx Instructions: 6 to 16 cartridges/day for first 6-12 weeks. Gradually reduce use over next 6-12wks. albuterol sulfate 90 mcg/actuation HFA aerosol inhaler 2 inh inhalation Q6H PRN (Reason: shortness of breath or wheezing) sertraline [Zoloft] 100 mg tablet 200 mg PO DAILY Qty: 90 3RF phentermine 37.5 mg capsule 37.5 mg PO DAILY Qty: 90 3RF acetaminophen 500 mg capsule 1,000 mg PO HS PRN losartan 25 mg tablet 25 mg PO DAILY Qty: 90 3RF ibuprofen 600 mg tablet 600 mg PO Q6H PRN Patient Comments: TAKE ONE TABLET BY MOUTH EVERY 8 HOURS FOR 5 DAYS Flat capsule PO DAILY Patient Comments: 12/31/23 pt describes this as a supplement for weight loss cetirizine 10 mg tablet 10 mg PO DAILY PRN (Reason: allergy symptoms) Qty: 90 3RF omeprazole magnesium 20 mg tablet,delayed release (DR/EC) 20 mg PO DAILY Qty: 90 3RF potassium chloride 20 mEq tablet extended release 20 meq PO DAILY Qty: 30 0RF Patient Comments: 12/31/23: pt reports has not taken in one month - it was a 30 days course progesterone micronized [Prometrium] 200 mg capsule 200 mg PO QHS 90 Days Qty: 90 1RF Discharge Instructions Instructions: Laparoscopic Cholecystectomy (GEN) Additional Instructions: Marisol, we were able to remove your gallbladder today just like we talked ab out. Everything went very smoothly. Hopefully will make a quick recovery. Expect to have a little pain over the next few days. As you will see below, I generally recommend using Tylenol and ibuprofen [id number] for the first 2 days. I have also provided a prescription for some stronger pain medication if you need it. Do not be alarmed if you get some bruising around the incision sites, that is extremely common. I would like to know if the skin around the incisions starts to turn bright pena red, or there is any concerning discharge from the wounds. I look forward to seeing you in the office in follow-up. If you have any questions in the meantime, please do not hesitate to call at any point. 1. Resume all of your medications. 2. Use heating pads and ice packs on the incisions to help with pain 3. Okay to use tylenol and ibuprofen over the counter. I recommend using them around the clock for 48 hours, then as needed. Use tramadol for more severe pain. 4. Leave bandages in place for 24 hours, then remove. 5. Shower with warm soapy water. Pat dry. Use a bandaid if needed to protect your clothing. 6. No soaking or tub baths until I see you in the office. 7. No heavy lifting until I see you in the office. 8. Call the office (or go directly to the emergency room after hours) if you notice any of the following: Develop chills (warm to touch), or if you have a thermometer and your temperature is above 101 Difficulty breathing or difficultly swallowing Persistent vomiting Any bleeding ? exceeding one tablespoon 9. Call your physician if the site where your intravenous was started becomes red, swollen, painful, and warm to touch. Stand Alone Forms: Anesthesia Discharge Inst., Pati Kwon ([facility]) Referrals: Yovani Trevnio MD [ [facility] STAFF PHYSICIAN] - 01/12/24 8:30 am Activity:: no heavy lifting Remove Dressings/Wound Care:: 24 hours Shower/Bathe:: 24 hours Diet:: As Tolerated Discharge Orders Discharge Orders: Discharge Order (Routine); Ordered 12/30/23 Ordered By: Yovani Trevino DS: Diagnosis Discharge Diagnosis (1) Biliary dyskinesia: Status: Acute
--- NOTE | 2023-12-30 18:20 | W.PM.OP ---
Date of service: 12/31/23 Time of Service: 09:21 Operative Note Operative Note DATE OF PROCEDURE: 12/31/23 PRE-OP DIAGNOSIS: Biliary dyskinesia POST-OP DIAGNOSIS: same PROCEDURE: Laparoscopic cholecystectomy SURGEON: Yovani Trevino ANESTHESIA TYPE: Local By Surgeon and General LMA/ETT Refer to Anesthesia Record ESTIMATED BLOOD LOSS: 25 PATHOLOGY: other (Gallbladder) COMPLICATIONS: None Patient was transported to: PACU Patient's condition: stable Indications: Marisol is a 43-year-old woman with chronic midepigastric abdominal pain and discomfort. She underwent a HIDA scan that demonstrated a gallbladder ejection fraction of 16%, consistent with a diagnosis of biliary dyskinesia. Procedure Description: After satisfactory induction of general anesthesia, I prepped and draped the abdomen in usual fashion. Next, I began with a periumbilical incision. I dissected down to the fascia and elevated it with Conor clamps. I incised it sharply. Next, I passed a 12 mm operating port in the umbilical site. I secured it to the fascia with 0 Vicryl stitches. I then insufflated the peritoneal cavity. Next I inserted a 10 mm 30 degree scope and examined the underlying viscera. There was no evidence of injury created upon entry. I then placed the patient in some reverse Trendelenburg and left side down positioning. Then, with the assistance of the laparoscope, I used local anesthetic to anesthetize the midepigastric and 2 right upper quadrant port sites. Under the vision of the laparoscope, I passed 3 more 5 mm ports. I then grasped the gallbladder fundus and elevated cephalad. I began by dissecting the gallbladder infundibulum. I worked in a lateral to medial fashion. Once I skeletonized the cystic duct, I turned my attention to dissection of the artery. The cystic artery took a high branch off of the right hepatic, and careful dissection was conducted to preserve the right hepatic artery. Once its base was skeletonized, and with a satisfactory view of safety, I doubly clipped and divided the cystic duct and artery.I then used electrocautery to dissect the gallbladder off the gallbladder fossa. I upsized the midepigastric port to a 12 mm in order to accommodate the scope. I moved the scope up here, and I passed the gallbladder into an Endo Catch bag and removed it by way of the umbilical site. I examined the surgical field. It was hemostatic. I then removed all of the ports under the vision of the laparoscope. Finally, I removed the umbilical port site and closed the fascia with Vicryl stitches. Sites were irrigated, and the skin was closed with subcuticular stitches. Bandages were applied, patient was awakened from anesthesia, and transferred to the recovery unit.
[2023-12-31] VITALS (11 sets, daily range): BP systolic 134–160; BP diastolic 70–98; PULSE 59–90; RESP 14–18; TEMP 36.2–37.1; O2SAT 92–100; BMI 38.0
[2023-12-31] MEDS: Gabapentin 300 MG CAP 600 MG PO (06:51)
[2023-12-31] MEDS: Celecoxib 200 MG CAP PO (06:52)
[2023-12-31] MEDS: Acetaminophen 500 MG TAB 1000 MG PO (06:52)
[2023-12-31] MEDS: Lactated Ringers 1,000 ML 80 ML IV (07:05)
[2023-12-31] MEDS: Normal Saline Flush 10 ML SYR IV ×2 (07:06→07:08)
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
[2023-12-31] MEDS: Indocyanine green 25 MG VIAL IVP (07:07)
[2023-12-31] MEDS: ceFAZolin 2 GM/50 ML BAG IVPB (07:35)
[2023-12-31] MEDS: Bupivacaine 0.25% Pres-Free 30 ML VIAL (08:00)
--- NOTE | 2023-12-31 08:05 | GB_PTH ---
PATIENT: Marisol Castro LOC: [facility]BY U#:[id number] AGE/SX: 43/F ROOM: RE12/31/[address]: Yovani Trevino MD : 1980 BED: DIS: 12/31/2023 SPEC #: [id number] RECD: 12/31/23 12:06 STATUS: TORRIE RELaith #: [id number] CRISTOFER: 12/31/23 08:[address]: Yovani Trevino DEPT: Surgical Specimen RECD BY: Arianne Laird ENTERED: 12/31/23 12:06 SP TYPE: GB OTHR DR: JG Cortez Tissues: 1 - GALLBLADDER Procedures: GROSS AND MICRO LEVEL 3 Comments: [id number]
[2023-12-31] MEDS: fentaNYL 100 MCG/2 ML VIAL IVP (10:38)
--- NOTE | 2023-12-31 16:50 | W.ANESPOSTOP ---
Postoperative Evaluation Date, Time and Location Date Performed: 12/31/23 Time Performed: 11:40 Patient Location: Day Surgery Unit Vital Signs Most Recent Imported Vital Signs: Most Recent Vital Signs Temp Pulse Resp BP Pulse Ox 36.2 C L 65 16 145/93 H 100 12/31/23 11:33 12/31/23 11:33 12/31/23 11:33 12/31/23 11:33 12/31/23 11:33 Pain Score Most Recent Pain Score: Most Recent Pain Score Pain Level 3 12/31/23 11:33 Assessment Mental Status: Awake (Alert & Oriented to Patient Baseline) Airway and Respiratory Function: Patent airway with normal (patient baseline) respiratory exam Cardiovascular Function: Hemodynamically Stable Hydration Status: Adequately Hydrated Nausea & Vomiting: No Nausea or Vomiting Pain: Pain is tolerable per patient Peripheral Nerve Block: Patient did not receive a nerve block
== END 2023-12-31 12:00 | disposition home or self-care (01) ==
LOC: SUR 06:09
PROVIDERS: PCP Nurse Practitioner Family; Visit Provider Surgery
PROC: 0FT44ZZ Resection of Gallbladder, Percutaneous Endoscopic Approach (ICD-10-PCS; CPT 47562; principal; 2023-12-31 07:30)
DX: K82.8 Other specified diseases of gallbladder (principal); I10 Essential (primary) hypertension; E78.5 Hyperlipidemia, unspecified; E28.2 Polycystic ovarian syndrome
CPT/HCPCS: 47562; 81025; 88304; J0665; J0690; J1100; J1805; J1885; J2250; J2405; J2704; J3010

== ENCOUNTER → 2024-02-23 03:53 | Outpatient (CLI) | payer MEDICAID, SELFPAY ==
--- NOTE | 2024-02-23 07:45 | DI.MAMMO_ITS ---
Exam(s) MAMMO SCREENING EXAM: MAMMO SCREENING CLINICAL HISTORY: screening,z12.39. TECHNIQUE: Bilateral full field digital CC and MLO mammographic images were obtained with 3D tomosyn thesis and utilizing computer aided detection (CAD). COMPARISON: None. This is a baseline mammogram on this 43-year-old FINDINGS: There is small benign-appearing nodules in both breasts which all have similar appearance and are pro bably benign intramammary lymph nodes. There are no spiculated masses nor malignant appearing microcalcification groups. There is no significant architectural distortion nor skin thickening-retraction. IMPRESSION: Benign findings. No radiographic evidence of malignancy. BI-RADS Category 2 - Benign Findings Breast Density - Category B - Scattered areas of fibroglandular density Breast density Category C or D implies that the patient has dense breast tissue. Dense breast tissue can make it harder to find cancer on a mammogram. Dense breast tissue is also associated with an incr eased risk of breast cancer. This information about the result of the mammogram report was provided to the patient to raise their awareness. Use this report when you speak with the patient about their risks for breast cancer, which includes their family history. At that time, you may recommend additional screening tests (Ultrasoun d or MRI) as these tests may add significant information. A negative radiographic report should not delay biopsy if a dominant or clinically suspicious mass is present. Up to ten percent of cancers are not identified on mammography. A negative report may reinforce clinical impression. Adenosis and dense breasts may obscure an underlying neoplasm. False positive reports average 6 to 10%. Patient will receive a letter notifying them of these results.
== END ==
PROVIDERS: PCP Nurse Practitioner Family; Visit Provider Nurse Practitioner Family
DX: Z12.31 Encounter for screening mammogram for malignant neoplasm of breast (principal)
CPT/HCPCS: 77063; 77067

== ENCOUNTER 2024-03-08 19:37 | Emergency (ER) | payer MEDICAID, SELFPAY ==
[2024-03-08 19:42] VITALS: BP 162/97; PULSE 65; RESP 16; TEMP 36.6; O2SAT 100
--- NOTE | 2024-03-08 20:15 | RT.EKG_ITS ---
APPROVED REPORT Exam: Resting ECG Reason for Exam: chest pressure Patient Location: E HR:61 bpm ECG Measurements Heart Rate 61 AXIS OH 164 P 42 QRSd 86 QRS -7 QT 395 T 25 QTc 399 Conclusion Sinus rhythm...normal P axis, V-rate 60- 99 Low voltage, precordial leads...precordial leads <1.0mV sinus rhtyhm, left axis ,normal intervals, non ischemic
--- NOTE | 2024-03-08 20:15 | DI.RAD_ITS ---
Exam(s) XR CHEST 2V PA LATERAL EXAM: XR CHEST 2V PA LATERAL CLINICAL HISTORY: chest pressure TECHNIQUE: 2D digital imaging was performed of the chest. Two images were obtained. PA and lateral views were obtained. COMPARISON: CR XR PORTABLE CHEST AP from 11/23/2022 FINDINGS: MEDIASTINUM: Normal. HEART: Normal. PULMONARY VASCULATURE: Normal. LUNGS: Clear. PLEURAL SPACE: No pleural effusion or pneumothorax. BONE:Within normal limits for the patient's age. OTHER FINDINGS:Normal. IMPRESSION: No acute pulmonary findings. DATA REPOSITORY: RADIATION DOSE DELIVERED:
[2024-03-08 20:19] VITALS: BP 162/97; PULSE 65; RESP 16; TEMP 36.6; O2SAT 100
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
[2024-03-08 21:00] LABS: Bilirubin Negative (Negative); Blood Small (Negative); Clarity Clear (Clear); Glucose Negative (Negative); Ketones Negative (Negative); Leukocyte Esterase Negative (Negative); Nitrite Negative (Negative); Specific Gravity <= 1.005 (1.005-1.025); Urobilinogen 0.2 mg/dL (Up to 0.2)
[2024-03-08 21:10] LABS: Bacteria Rare HPF (Negative); C & S Indicated? No; Casts Negative LPF (Negative); Crystals Negative HPF (Negative); Epithelial Cells Rare HPF (Negative); Mucus Negative (Negative)
[2024-03-08] MEDS: Dexamethasone 10 MG/ML VIAL IVP (21:10)
[2024-03-08] MEDS: Ketorolac 15 MG/ML VIAL IVP (21:10)
[2024-03-08] MEDS: LORazepam 2 MG/ML VIAL 0.5 MG IVP (21:11)
[2024-03-08] MEDS: Ondansetron 4 MG/2 ML VIAL IVP (21:11)
[2024-03-08] MEDS: Normal Saline 1,000 ML 1000 ML IV (21:11)
[2024-03-08 21:13] LABS: Abs Immature Grans 0.05 10^3/uL (0.0-0.06); Absolute Eosinophil Count 0.06 10^3/uL (0.0-0.7); Absolute Monocyte Count 0.78 10^3/uL (0.1-0.8); Absolute Neutrophil Count 7.94 10^3/uL (1.2-6.7); Basophils % 0.3 %; Eosinophils % 0.5 %; HCT 39.6 % (36.0-46.0); HGB 13.3 g/dL (11.2-15.7); Immature Grans % 0.4 %; Lymphocytes % 25.9 %; MCH 30.4 pg (27.0-33.0); MCHC 33.6 % (32.0-36.0); MCV 90 fL (80-95); MPV 9.6 fL (8.0-11.0); Monocytes % 6.5 %; Neutrophils % 66.4 %; Platelet Count 314 10^3/uL (130-400); RBC 4.38 10^6/uL (3.93-5.22); RDW 11.9 % (11.7-14.6); RDW-SD 39.5 fL; WBC 11.96 10^3/uL (4.4-10.8)
[2024-03-08 21:15] LABS: Absolute Basophil Count 0.04 10^3/uL (0.0-0.2)
[2024-03-08 21:43] LABS: ALT 24 U/L (14-59); AST 21 U/L (15-37); Albumin 3.8 g/dL (3.4-5.0); Alkaline Phosphatase 108 U/L (46-116); Anion Gap 9.3 mmol/L (3-11); BUN 17 mg/dL (7-18); Bilirubin, Total 0.2 mg/dL (0.2-1.0); CO2 29.7 mmol/L (21.0-32.0); CREATININE 0.9 mg/dL (0.55-1.02); Calcium 9.1 mg/dL (8.5-10.1); Chloride 102 mmol/L (98-107); Estimated GFR 81.35 (mL/min/1.73m2); Glucose 94 mg/dL (74-106); Magnesium 1.7 mg/dL (1.8-2.4); Potassium 3.4 mmol/L (3.5-5.1); Sodium 141 mmol/L (136-145); TSH (W/Ref FT4) 2.47 uIU/mL (0.36-3.74); Total Protein 7.7 g/dL (6.4-8.2); Troponin I < 50 ng/L (< or =60)
[2024-03-08 22:48] VITALS: BP 161/96; PULSE 89; RESP 18; O2SAT 99
--- NOTE | 2024-03-08 23:11 | DI.VRAD_ITS ---
PROCEDURE INFORMATION: Exam: XR Chest Exam date and time: 03/08/2024 9:15 PM Age: 43 years old Clinical indication: Other: Chest pressure TECHNIQUE: Imaging protocol: Radiologic exam of the chest. Views: 2 views. COMPARISON: CT CHEST/ABD/PEL W 11/06/2023 3:17 AM FINDINGS: Lungs: Lungs are adequately inflated and symmetric. No focal consolidation or evidence of pulmonary edema. Pleural spaces: No pleural effusion. No pneumothorax. Heart/Mediastinum: Cardiomediastinal contours within normal limits. Bones/joints: No acute osseous finding. IMPRESSION: No acute findings. Dictated and Authenticated by: Wei Valdivia MD. Ordering:LAYTON Mixon MD
== END 2024-03-08 22:55 | disposition home or self-care (01) ==
PROVIDERS: Emergency Provider Emergency Medicine; PCP Nurse Practitioner Family
DX: R51.9 Headache, unspecified (principal); R11.0 Nausea; F41.1 Generalized anxiety disorder
CPT/HCPCS: 36415; 80053; 81025; 93005; 96361; 96374; 96375; 99284; 71046; 81003; 81015; 83735; 84443; 84484; 85025; 93010; 99283; J1100; J1885; J2060; J2405

== ENCOUNTER 2024-04-03 11:24 | Outpatient (CLI) | payer MEDICAID, SELFPAY ==
[2024-04-03 12:43] LABS: Abs Immature Grans 0.03 10^3/uL (0.0-0.06); Absolute Basophil Count 0.04 10^3/uL (0.0-0.2); Absolute Eosinophil Count 0.07 10^3/uL (0.0-0.7); Absolute Lymphocyte Count 2.97 10^3/uL (1.2-3.4); Absolute Neutrophil Count 5.64 10^3/uL (1.2-6.7); Basophils % 0.4 %; Eosinophils % 0.7 %; HCT 43.2 % (36.0-46.0); Immature Grans % 0.3 %; Lymphocytes % 31.4 %; MCH 29.4 pg (27.0-33.0); MCHC 32.4 % (32.0-36.0); MCV 91 fL (80-95); MPV 10.1 fL (8.0-11.0); Monocytes % 7.4 %; Neutrophils % 59.8 %; Platelet Count 343 10^3/uL (130-400); RBC 4.76 10^6/uL (3.93-5.22); WBC 9.45 10^3/uL (4.4-10.8)
[2024-04-03 13:08] LABS: ALT 22 U/L (14-59); AST 12 U/L (15-37); Albumin 3.6 g/dL (3.4-5.0); Alkaline Phosphatase 120 U/L (46-116); Anion Gap 9.9 mmol/L (3-11); BUN 12 mg/dL (7-18); Bilirubin, Total 0.3 mg/dL (0.2-1.0); CO2 27.1 mmol/L (21.0-32.0); CREATININE 0.8 mg/dL (0.55-1.02); Calcium 9.5 mg/dL (8.5-10.1); Calculated LDL 140 mg/dL (<100); Chloride 105 mmol/L (98-107); Cholesterol 227 mg/dL (<200); Glucose 111 mg/dL (74-106); HDL Cholesterol 54 mg/dL (40-60); Potassium 3.8 mmol/L (3.5-5.1); Sodium 142 mmol/L (136-145); Total Protein 7.6 g/dL (6.4-8.2); Triglyceride 166 mg/dL (<150)
[2024-04-03 13:09] LABS: Hemoglobin A1C 5.5 % (<5.7)
[2024-04-03 13:09] LABS: Bilirubin Negative (Negative); Blood Moderate (Negative); Clarity Clear (Clear); Glucose Negative (Negative); Ketones Negative (Negative); Leukocyte Esterase Negative (Negative); Nitrite Negative (Negative); Urobilinogen 0.2 mg/dL (Up to 0.2)
[2024-04-03 13:35] LABS: Bacteria Negative HPF (Negative); C & S Indicated? No; Casts Negative LPF (Negative); Crystals Negative HPF (Negative); Epithelial Cells Few HPF (Negative); Mucus Negative (Negative); Other Cells Negative (Negative); RBC >50 HPF (0-2)
[2024-04-03 17:33] LABS: Lab Add On Test DONE
[2024-04-03 17:38] LABS: Magnesium 1.7 mg/dL (1.8-2.4)
[2024-04-03 18:49] LABS: Hepatitis C Ab w Rflx HCV PCR Negative (Negative)
[2024-04-03 18:52] LABS: HIV-1/2 Ag & Ab Screen Negative (Negative)
[2024-04-03 18:56] LABS: HBs Antibody, Quant <3.1 mIU/mL (See Note); Hep B Surface Ab Negative (See Note); Hepatitis B Core Antibody Negative (Negative); Hepatitis B Surface Antigen Negative (Negative)
== END 2024-04-03 11:25 | disposition home or self-care (01) ==
LOC: LOS 11:24
PROVIDERS: PCP Nurse Practitioner Family; Referring Provider Nurse Practitioner Family; Visit Provider Nurse Practitioner Family
DX: Z11.4 Encounter for screening for human immunodeficiency virus [HIV] (principal); R42 Dizziness and giddiness; Z00.00 Encounter for general adult medical examination without abnormal findings; Z11.59 Encounter for screening for other viral diseases; E83.42 Hypomagnesemia
CPT/HCPCS: 36415; 80053; 80061; 86704; 86706; 86803; 87340; 87389; 81003; 81015; 83036; 83735; 85025

== ENCOUNTER 2024-04-23 21:52 | Emergency (ER) | payer MEDICAID, SELFPAY ==
[2024-04-23] VITALS (18 sets, daily range): BP systolic 142–178; BP diastolic 87–100; PULSE 66–91; RESP 11–20; TEMP 36.7; O2SAT 99
--- NOTE | 2024-04-23 21:45 | RT.EKG_ITS ---
APPROVED REPORT Exam: Resting ECG Reason for Exam: chest pain Patient Location: E HR:67 bpm ECG Measurements Heart Rate 67 AXIS RI 157 P 65 QRSd 83 QRS -5 QT 385 T 25 QTc 407 Conclusion Sinus rhythm...normal P axis, V-rate 60- 99 Probable left atrial enlargement...P >50mS, <-0.10mV V1 There are no significant changes compared to prior EKG performed on 03/08/2024 at 20:37.
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
--- OUTSIDE RECORDS SUMMARY | 2024-04-23 22:01 | XMS_ITS | Continuity of Care Document ---
Author Name Unknown Organization [facility] Address [address] [place] [address] Care Team Providers [facility] Home Care Coordinator Name Role Phone QUINCY ESCOBEDO Primary Care Physician [phone] Encounter LTTL_ND FIN NBR [id number] Date(s): 09/17/22 - 09/17/22 [facility] [address] [place] [address]- [place] Encounter Diagnosis Lipoma(Discharge Diagnosis) - 09/16/22 Discharge Disposition: Home f/u External Provider Attending Physician: Nehemiah Bonilla DO Admitting Physician: Nehemiah Bonilla DO Referring Physician: Nehemiah Bonilla DO Allergies, Adverse Reactions, Alerts Substance Reaction Severity Status erythromycin made sick Unknown Active penicillins Unknown Unknown Active buPROPion Justin Unknown Active Azithromycin Novaplus fainted Unknown Active Assessment and Plan Future Appointments Functional Status 09/17/22 Anti-Embolism Device Activity: Applied Anti-Embolism Site Condition: No complic ations 09/17/22 Antiembolism Device Intermittent pneumat ic compression devices, knee high, bilat Family Member Travel History No recent t ravel Recent Travel History No recent travel Other exposure to Infectious Disease Non e 09/16/22 Living Situation Home independently ADLs Independent Medications busPIRone 5 mg =, Oral, BID, 0 Refill(s) Start Date: 09/04/22 Status: Ordered doxycycline hyclate 100 mg oral capsule 100 mg = 1 cap, Oral, BID, # 10 cap, 0 Refill(s) Start Date: 09/17/22 Stop Date: 09/22/22 Status: Ordered estradiol 0.5 mg oral tablet 0 Refill(s) Start Date: 09/04/22 Status: Ordered ibuprofen 0 Refill(s) Start Date: 09/04/22 Status: Ordered meloxicam 5 mg oral capsule 5 mg = 1 cap, Oral, Daily, PRN arthritis, # 30 cap, 0 Refill(s) Start Date: 09/07/22 Status: Ordered methocarbamol 0 Refill(s) Start Date: 09/04/22 Status: Ordered norethindrone 0.35 mg oral tablet 0 Refill(s) Start Date: 09/04/22 Status: Ordered omeprazole 20 mg oral delayed release tablet 20 mg = 1 tab, Oral, Daily, # 90 tab, 0 Refill(s) Start Date: 09/16/22 Status: Ordered sertraline 0 Refill(s) Start Date: 09/04/22 Status: Ordered SUMAtriptan 0 Refill(s) Start Date: 09/04/22 Status: Ordered Problem List Condition Confirmation Course Effective Dates Status H ealth Status Informant Cervicovaginal cytology: LGSIL Confirmed Active Cigarette smoker Confirmed Active Depressive disorder Confirmed Active Ganglion cyst Confirmed Active GERD - Gastro-esophageal reflux disease Confirmed Active Headache Confirmed Active Hyperlipidemia Confirmed Active PCOS- polycystic ovary syndrome Confirmed Active Procedures Procedure Date Related Diagnosis Body Site Status Excision Lipoma (Right, Head) 1 09/17/22 Completed Ablation 2 Completed Arthroscopy of knee 3 Com pleted Bursectomy Completed Excision of ganglion cyst Completed Foot joint operation Comp leted Ligation of bilateral fallopian tubes Completed 1auto-populated from documented surgical case 2Utero ablation 3left knee Vital Signs Most recent to oldest [Reference Range]: 1 2 3 Temperature Temporal Artery [36-38 Deg C] 36.7 Deg C (09/17/22 11:24 AM) 36.4 Deg C (09/17/22 8:42 AM) Temperature Temporal Artery (DegF) [97.3-100 Deg F] 98.06 Deg F (09/17/22 11:24 AM) 97.52 Deg F (09/17/22 8:42 AM) Peripheral Pulse Rate [60-100 bpm] 62 bpm (09/17/22 11:45 AM) 61 bpm (09/17/22 11:30 AM) 76 bpm (09/17/22 11:24 AM) Heart Rate Monitored [60-100 bpm] 71 bpm (09/17/22 8:42 AM) Respiratory Rate [12-24 br/min] 18 br/min (09/17/22 8:42 AM) Blood Pressure [90-140/60-90 mmHg] 139/86mmHg (09/17/22 11:45 AM) 127/97mmHg (09/17/22 11:30 AM) 128/84mmHg (09/17/22 11:24 AM) Mean Arterial Pressure, Cuff [65-140 mmHg] 104 mmHg (09/17/22 11:45 AM) 107 mmHg (09/17/22 11:30 AM) 99 mmHg (09/17/22 11:24 AM) Mean Arterial Pressure Cuff 103 mmHg (09/17/22 11:45 AM) 105 mmHg (09/17/22 11:30 AM) 97 mmHg (09/17/22 11:24 AM) Blood Pressure Location Right arm (09/17/22 11:24 AM) Right arm (09/17/22 8:42 AM) Weight 111.130 kg (09/16/22 4:09 PM) Weight Dosing 111.130 kg (09/16/22 4:09 PM) Weight Estimated 111.13 kg (09/16/22 4:09 PM) Height 165.100 cm (09/16/22 4:09 PM) Height/Length Dosing 165.100 cm (09/16/22 4:09 PM) Body Mass Index Estimated 40.77 kg/m2 (09/16/22 4:09 PM) Height/Length Estimated 165.10 cm (09/16/22 4:09 PM) Social History Social History Type Response Tobacco Current everyday tob acco user Tobacco Use:. Sex Discharge instructions * Event Display: Discharge Instructions History and physical note * Event Display: History and Physical Update Patient Care team information Personnel Name: RICHAR ESCOBEDOIDE Address: Address: [address] [place] [phone] [place]
--- OUTSIDE RECORDS SUMMARY | 2024-04-23 22:01 | XMS_ITS | Continuity of Care Document ---
Author Name Unknown Organization [facility] Address [address] [place] [address] Care Team Providers Care It Operations Analyst Name Role Phone GREGG HENRIUQEZ, QUINCY Primary Care Physician Encounter LTTL_CO FIN NBR [id number] Date(s): 03/17/23 - 03/17/23 [facility] [address] [place] [address] [place] Encounter Diagnosis Chest wall pain(Discharge Diagnosis) - 03/17/23 Generalized anxiety disorder(Discharge Diagnosis) - 03/17/23 Hypertension(Discharge Diagnosis) - 03/17/23 Discharge Disposition: Home or Self Care Attending Physician: Kiel Sandhu DO Admitting Physician: Kiel Sandhu DO Allergies, Adverse Reactions, Alerts Substance Reaction Severity Status erythromycin made sick Unknown Active penicillins Unknown Unknown Active buPROPion Justin Unknown Active Azithromycin Novaplus fainted Unknown Active Functional Status 03/17/23 Other exposure to Infectious Disease Non e Medications busPIRone 5 mg =, Oral, BID, [...] documented surgical case 2Utero ablation 3left knee Results Laboratory List Name Date CBC w/ Diff 03/17/23 Comprehensive Metabolic Panel (CMP) 03/17 Lipase Level 03/17/23 Troponin-I 03/17/23 Automated Diff 03/17/23 Most recent to oldest [Reference Range]: 1 WBC [4.8-10.8 K/mcL] 9.9 K/mcL (03/17/23 12:00 PM) RBC [4.20-5.40 Million/mcL] 4.65 Million /mcL (03/17/23 12:00 PM) Neutro Auto [42.2-75.2 %] 59.8 % (03/17/23 12:00 PM) Lymph Auto [20.5-51.1 %] 31.0 % (03/17/23 12:00 PM) [place] Auto [1.7-9.3 %] 7.7 % (03/17/23 12:00 PM) Basophil Auto [0.0-0.8 %] 0.4 % (03/17/23 12:00 PM) BUN [8-26 mg/dL] 15 mg/dL (03/17/23 12:00 PM) Glucose Level [74-106 mg/dL] 94 mg/dL (03/17/23 12:00 PM) Potassium Level [3.5-5.1 mmol/L] 3.7 mmo l/L (03/17/23 12:00 PM) Baso Absolute [0.0-0.2 K/mcL] 0.0 K/mcL (03/17/23 12:00 PM) MCV [81.0-99.0 fL] 90.8 fL (03/17/23:00 PM) AST [15-41 IntlUnit/L] 19 IntlUnit/L (03/17/23 12:00 PM) ALT [14-54 IntlUnit/L] 17 IntlUnit/L (03/17/23:00 PM) MCHC [32.0-36.0 g/dL] 33.6 g/dL (03/17/23:00 PM) Osmolality [275-295 mOsm/kg] 271 mOsm/kg *LOW* (03/17/23 PM) Troponin-I [<=0.05 ng/mL] 0.01 ng/mL (03/17/23:00 PM) Sodium Level [134-143 mmol/L] 135 mmol/L (03/17/23:00 PM) Lymph Absolute [1.2-3.4 K/mcL] 3.1 K/mcL (03/17/23:00 PM) Hct [37.0-47.0 %] 42.2 % (03/17/23:00 PM) Lipase Level [18-51 unit/L] 38 unit/L (03/17/23:00 PM) Calcium Level [8.9-10.3 mg/dL] 9.1 mg/dL (03/17/23 12:00 PM) [place] Absolute [0.1-0.6 K/mcL] 0.8 K/mcL *HI* (03/17/23:00 PM) Albumin Level [3.5-5.0 g/dL] 3.9 g/dL (03/17/23:00 PM) Protein Total [6.5-8.1 g/dL] 7.1 g/dL (03/17/23 12:00 PM) MCH [27.0-31.0 pg] 30.5 pg (03/17/23 12:00 PM) Neutro Absolute [1.4-6.5 K/mcL] 5.9 K/mc L (03/17/23 12:00 PM) Bilirubin Total [0.2-1.2 mg/dL] 0.3 mg/d L (03/17/23 12:00 PM) Hgb [12.0-16.0 g/dL] 14.2 g/dL (03/17/23:00 PM) Alk Phos [38-130 IntlUnit/L] 86 IntlUnit /L (03/17/23 12:00 PM) MPV [7.4-10.4 fL] 10.7 fL *HI* (03/17/23:00 PM) Platelets [130-400 K/mcL] 276 K/mcL (03/17/23:00 PM) CO2 [22-32 mmol/L] 26 mmol/L (03/17/23:00 PM) Eos Absolute [0.0-0.2 K/mcL] 0.1 K/mcL (03/17/23:00 PM) Chloride Level [98-111 mmol/L] 102 mmol/ L (03/17/23 12:00 PM) RDW-CV [11.5-14.5 %] 12.4 % (03/17/23 12:00 PM) A/G Ratio 1.2 *NA* (03/17/23 12:00 PM) BUN/Creat Ratio [8.0-20.0] 22.1 *HI* (03/17/23:00 PM) Globulin 3.2 *NA* (03/17/23 12:00 PM) Imm Gran Absolute 0.03 *NA* (03/17/23:00 PM) Imm Gran Auto [0.0-0.5 %] 0.3 % (03/17/23 12:00 PM) Slide Review Not Indicated (03/17/23 12:00 PM) Creatinine Level [0.44-1.00 mg/dL] 0.68 mg/dL (03/17/23 12:00 PM) Anion Gap [3.0-12.0] 7.0 (03/17/23 12:00 PM) Eos, Auto [0.00-3.00 %] 0.80 % (03/17/23 12:00 PM) eGFR CKD-EPI [>=60 mL/min/1.73 m2] 111 m L/min/1.73 m2 (03/17/23 12:00 PM) Radiology Reports * Exam Date Time Procedure Performing Provider Status 03/17/23 12:12 PM XR Chest 2 Views Mignon Deshpande; Brendan (Verified) Notes: (XR Chest 2 Views) Reason For Exam: Chest Pain XR Chest 2 Views EXAM DESCRIPTION: XR Chest 2 Views 03/17/2023 INDICATION: CHEST PAIN COMPARISON: None FINDINGS: Clear lungs with no focal infiltrate or pulmonary edema. Normal cardiomediastinal contour. Normal pleural margins with no pleural effusion or pneumothorax. Mild spondylotic changes of the dorsal spine. IMPRESSION: No active chest disease. JOB #: [id number] Final Signed by: Willam Rocha MD Signed (Electronic Signature): 03/17/2023 12:16 pm Vital Signs Most recent to oldest [Reference Range]: 1 2 3 Temperature Temporal Artery [36-38 Deg C] 36 Deg C (03/17/23 10:59 AM) Peripheral Pulse Rate [60-100 bpm] 63 bpm (03/17/23 12:15 PM) 73 bpm (03/17/23 12:00 PM) 65 bpm (03/17/23 11:45 AM) Heart Rate Monitored [60-100 bpm] 65 bpm (03/17/23 12:15 PM) 73 bpm (03/17/23 12:00 PM) 68 bpm (03/17/23 11:45 AM) Respiratory Rate [12-24 br/min] 14 br/min (03/17/23 12:15 PM) 15 br/min (03/17/23 12:00 PM) 16 br/min (03/17/23 11:45 AM) Blood Pressure [90-140/60-90 mmHg] 149/94mmHg *HI* (03/17/23 12:15 PM) 158/98mmHg *HI* (03/17/23 12:00 PM) 158/92mmHg *HI* (03/17/23 11:45 AM) Mean Arterial Pressure Cuff 112 mmHg (03/17/23 12:15 PM) 117 mmHg (03/17/23 12:00 PM) 110 mmHg (03/17/23 11:45 AM) Weight 111.00 kg (03/17/23 10:59 AM) Weight Dosing 111.00 kg (03/17/23 11:14 AM) Height 165.000 cm (03/17/23 10:59 AM) Height/Length Dosing 165.000 cm (03/17/23 11:14 AM) Body Mass Index 41.000 kg/m2 (03/17/23 10:59 AM) Social History Social History Type Response Tobacco Current everyday tob acco user Tobacco Use:. Sex Hospital Discharge Instructions Patient Education 03/17/2023 11:35:20 Hypertension, Adult Hypertension, Adult High blood pressure (hypertension) is when the force of blood pumping through the arteries is too strong. The arteries are the blood vessels that carry blood from the heart throughout the body. Hypertension forces the heart to work harder to pump blood and may cause arteries to become narrow or stiff. Untreated or uncontrolled hypertension can cause a heart attack, heart failure, a stroke, kidneydisease, and other problems. A blood pressure reading consists of a higher number over a lower number. Ideally, your blood pressure should be below 120/80. The first (top) number is called the systolic pressure. It is a measure of the pressure in your arteries as your heart beats. The second (bottom) number is called the diastolic pressure. It is a measure of the pressure in your arteries as the heart relaxes. What are the causes? The exact cause of this condition is not known. There are some conditions that result in or are related to high blood pressure. What increases the risk? Some risk factors for high blood pressure are under your control. The following factors may make you more likely to develop this condition: ??? Smoking. ??? Having type 2 diabetes mellitus, high cholesterol, or both. ??? Not getting enough exercise or physical activity. ??? Being overweight. ??? Having too much fat, sugar, calories, or salt (sodium) in your diet. ??? Drinking too much alcohol. Some risk factors for high blood pressure may be difficult or impossible to change. Some of these factors include: ??? Having chronic kidney disease. ??? Having a family history of high blood pressure. ??? Age. Risk increases with age. ??? Race. You may be at higher risk if you are . ??? Gender. Men are at higher risk than women before age 45. After age 65, women are at higher riskthan men. ??? Having obstructive sleep apnea. ??? Stress. What are the signs or symptoms? High blood pressure may not cause symptoms. Very high blood pressure (hypertensive crisis) may cause: ??? Headache. ??? Anxiety. ??? Shortness of breath. ??? Nosebleed. ??? Nausea and vomiting. ??? Vision changes. ??? Severe chest pain. ??? Seizures. How is this diagnosed? This condition is diagnosed by measuring your blood pressure while you are seated, with your arm resting on a flat surface, your legs uncrossed, and your feet flat on the floor. The cuff of the bloodpressure monitor will be placed directly against the skin of your upper arm at the level of your heart. It should be measured at least twice using the same arm. Certain conditions can cause a difference in blood pressure between your right and left arms. Certain factors can cause blood pressure readings to be lower or higher than normal for a short period of time: ??? When your blood pressure is higher when you are in a health care provider's office than when you are at home, this is called white coat hypertension. Most people with this condition do not need medicines. ??? When your blood pressure is higher at home than when you are in a health care provider's office, this is called masked hypertension. Most people with this condition may need medicines to control blood pressure. If you have a high blood pressure reading during one visit or you have normal blood pressure with other risk factors, you may be asked to: ??? Return on a different day to have your blood pressure checked again. ??? Monitor your blood pressure at home for 1 week or longer. If you are diagnosed with hypertension, you may have other blood or imaging tests to help your health care provider understand your overall risk for other conditions. How is this treated? This condition is treated by making healthy lifestyle changes, such as eating healthy foods, exercising more, and reducing your alcohol intake. Your health care provider may prescribe medicine if lifestyle changes are not enough to get your blood pressure under control, and if: ??? Your systolic blood pressure is above 130. ??? Your diastolic blood pressure is above 80. Your personal target blood pressure may vary depending on your medical conditions, your age, and other factors. Follow these instructions at home: Eating and drinking ??? Eat a diet that is high in fiber and potassium, and low in sodium, added sugar, and fat. An example eating plan is called the DASH (Dietary Approaches to Stop Hypertension) diet. To eat this way: ??? Eat plenty of fresh fruits and vegetables. Try to fill one half of your plate at each meal withfruits and vegetables. ??? Eat whole grains, such as whole-wheat pasta, brown rice, or whole-grain bread. Fill about one fourth of your plate with whole grains. ??? Eat or drink low-fat dairy products, such as skim milk or low-fat yogurt. ??? Avoid fatty cuts of meat, processed or cured meats, and poultry with skin. Fill about one fourth of your plate with lean proteins, such as fish, chicken without skin, beans, eggs, or tofu. ??? Avoid pre-made and processed foods. These tend to be higher in sodium, added sugar, and fat. ??? Reduce your daily sodium intake. Most people with hypertension should eat less than 1,500 mg ofsodium a day. ??? Do not drink alcohol if: ??? Your health care provider tells you not to drink. ??? You are , may be , or are planning to become . ??? If you drink alcohol: ??? Limit how much you use to: ??? 0???1 drink a day for women. ??? 0???2 drinks a day for men. ??? Be aware of how much alcohol is in your drink. In the [place] one drink equals one 12 oz bottle of beer (355 mL), one 5 oz glass of wine (148 mL), or one 1?? oz glass of hard liquor (44 mL). Lifestyle ??? Work with your health care provider to maintain a healthy body weight or to lose weight. Ask what an ideal weight is for you. ??? Get at least 30 minutes of exercise most days of the week. Activities may include walking, swimming, or biking. ??? Include exercise to strengthen your muscles (resistance exercise), such as Pilates or lifting weights, as part of your weekly exercise routine. Try to do these types of exercises for 30 minutes at least 3 days a week. ??? Do not use any products that contain nicotine or tobacco, such as cigarettes, e-cigarettes, andchewing tobacco. If you need help quitting, ask your health care provider. ??? Monitor your blood pressure at home as told by your health care provider. ??? Keep all follow-up visits as told by your health care provider. This is important. Medicines ??? Take [id number] and prescription medicines only as told by your health care provider. Follow directions carefully. Blood pressure medicines must be taken as prescribed. ??? Do not skip doses of blood pressure medicine. Doing this puts you at risk for problems and can make the medicine less effective. ??? Ask your health care provider about side effects or reactions to medicines that you should watch for. Contact a health care provider if you: ??? Think you are having a reaction to a medicine you are taking. ??? Have headaches that keep coming back (recurring). ??? Feel dizzy. ??? Have swelling in your ankles. ??? Have trouble with your vision. Get help right away if you: ??? Develop a severe headache or confusion. ??? Have unusual weakness or numbness. ??? Feel faint. ??? Have severe pain in your chest or abdomen. ??? Vomit repeatedly. ??? Have trouble breathing. Summary ??? Hypertension is when the force of blood pumping through your arteries is too strong. If this condition is not controlled, it may put you at risk for serious complications. ??? Your personal target blood pressure may vary depending on your medical conditions, your age, and other factors. For most people, a normal blood pressure is less than 120/80. ??? Hypertension is treated with lifestyle changes, medicines, or a combination of both. Lifestyle changes include losing weight, eating a healthy, low-sodium diet, exercising more, and limiting alcohol. This information is not intended to replace advice given to you by your health care provider. Make sure you discuss any questions you have with your health care provider. Document Revised: 06/28/2019 Document Reviewed: 06/28/2019 [employer] Patient Education ?? 2021 [employer]. 03/17/2023 11:35:16 Chest Wall Pain Chest Wall Pain Chest wall pain is pain in or around the bones and muscles of your chest. Sometimes, an injury causes this pain. Excessive coughing or overuse of arm and chest muscles may also cause chest wall pain.Sometimes, the cause may not be known. This pain may take several weeks or longer to get better. Follow these instructions at home: Managing pain, stiffness, and swelling ??? If directed, put ice on the painful area: ??? Put ice in a plastic bag. ??? Place a towel between your skin and the bag. ??? Leave the ice on for 20 minutes, 2???3 times per day. Activity ??? Rest as told by your health care provider. ??? Avoid activities that cause pain. These include any activities that use your chest muscles or your abdominal and side muscles to lift heavy items. Ask your health care provider what activities are safe for you. General instructions ??? Take [id number] and prescription medicines only as told by your health care provider. ??? Do not use any products that contain nicotine or tobacco, such as cigarettes, e-cigarettes, andchewing tobacco. These can delay healing after injury. If you need help quitting, ask your health care provider. ??? Keep all follow-up visits as told by your health care provider. This is important. Contact a health care provider if: ??? You have a fever. ??? Your chest pain becomes worse. ??? You have new symptoms. Get help right away if: ??? You have nausea or vomiting. ??? You feel sweaty or light-headed. ??? You have a cough with mucus from your lungs (sputum) or you cough up blood. ??? You develop shortness of breath. These symptoms may represent a serious problem that is an emergency. Do not wait to see if the symptoms will go away. Get medical help right away. Call your local emergency services (911 in the [place] Do not drive yourself to the hospital. Summary ??? Chest wall pain is pain in or around the bones and muscles of your chest. ??? Depending on the cause, it may be treated with ice, rest, medicines, and avoiding activities that cause pain. ??? Contact a health care provider if you have a fever, worsening chest pain, or new symptoms. ??? Get help right away if you feel light-headed or you develop shortness of breath. These symptomsmay be an emergency. This information is not intended to replace advice given to you by your health care provider. Make sure you discuss any questions you have with your health care provider. Document Revised: 01/02/2022 Document Reviewed: 01/02/2022 [employer] Patient Education ?? 2021 [employer]. Follow Up Care 03/17/2023 10:59:19 With:QUINCY ESCOBEDO NP Address: [address] [place] [phone] When:1 week only if needed Physician Emergency department Note * Kiel Sandhu DO: PERFORM Event Display: ED Note Physician Authored Date: [id number] CONSUELO SKELTON :1980 Age:42 years Sex:Female Visit Date:03/17/2023 Primary Care Physician: QUINCY ESCOBEDO NP Basic Information Time Seen: Kiel Sandhu DO / 03/17/2023 11:12 Chief Complaint pt having chest pain since last wee went to MD told her to take cold medicine today chest pain not getting better. History Of Present Illness: This is a??obese 42-year-old female [facility] as documented to the right presents to the emergency department with concerns of chest pain.?? She states that she has been experiencing??point-localized??sharp/stabbing tightness in her left anterior chest wall non-radiating. ??No associated shortness of breath, diaphoresis, palpitations, presyncope or syncope.?? She states that symptoms have been ongoing for the past??week intermittently. ??She states with certain movements of her right upper extremity or certain rotational movements of her torso exacerbate her discomfort.?? She went to convenient EDGER OPERATOR??who recommended she come to the emergency department for further evaluation. Review of Systems: CONSTITUTIONAL: _No weight loss, fever, chills, weakness or fatigue SKIN: _No rash, no itching, no jaundice EYES: _No visual loss, blurred vision, double vision or scleral icterus ENT: _No ear pain; patent nares without bleeding or congestion; no sore throat CARDIOLOGY: _(+)ve chest pain, No edema, No palpitations PULMONOLOGY: _No pleuritic chest pain, No hkeaiftxf-ix-fcmtlv, No cough, No hemoptysis ABDOMEN:_no nausea, no vomiting, no abdominal pain, no melena, no hematochezia :_no dysuria, no urinary frequency, no urinary urgency NEURO:_No focal neurological deficit, no headache, no dizziness ?? REST OF REVIEW OF SYSTEMS IS NEGATIVE PERTAINS TO CHIEF COMPLAINT Physical Exam Vitals & Measurements T:??36?C ??(Temporal Artery)?? HR:??63??(Peripheral)?? HR:??65??(Monitored)?? RR:??14?? BP:??149/94?? SpO2:??98%?? HT:??165.000??cm?? WT:??111.00??kg?? BMI:??41.000?? O2 Therapy:??Room air?? GENERAL: This is an obese female anxious in no cardiopulmonary distress.?? Hypertension noted on vital signs. SKIN: Warm and dry. No rash. HEENT: Normocephalic, atraumatic. ??PERRLA, EOMI, no conjunctival injection, no scleral icterus. ??TMs not examined. ??Nares are without congestion or rhinorrhea. ??No posterior pharyngeal erythema or tonsillar exudate. ??Dentition grossly intact. ??Mucous membranes are moist. NECK: Supple. No JVD. HEART: Regular rate and rhythm. ??S1 and S2. No murmur. LUNGS: Clear to auscultation bilaterally. ??No respiratory distress. ABDOMEN: Obese, non-distended, non-tender without guarding, rebound or rigidity. ??Raphael sign negative.? EXTREMITIES: No unilateral leg swelling or posterior calf tenderness. No edema. NEUROLOGIC: GCS 15. CN III-XII intact without acute focal neurological deficit. Medical Decision Making: Chest pain. HEART SCORE 2. WELLS SCORE 0; Meets PERC criteria. ??History more consistent with musculoskeletal etiology.?Screening EKG unremarkable. ??Will obtain screening laboratory work-up and chest x-ray. Procedure No Qualifying Data Reexamination/Reevaluation Based on the history, physical and diagnostic studies, I think the patient is low risk for life threatening cardiopulmonary events. I have considered ACS, pulmonary embolism, dissection, pneumothorax, esophageal pathology, chest wall syndrome, GERD, pleurisy etc. The patient understands that they need to make an appointment to follow up with a primary physician regarding their complaints this week. They understand they need to return to the ED immediately for any worsening symptoms, recurrent chest pain, difficulty breathing, passing out or other concerns. They are to return to the ED if theycannot see a physician and have other concerns. Assessment/Plan 1.??Chest wall pain??R07.89 Please see above 2.??Generalized anxiety disorder??F41.1 Patient states this is a known underlying disorder??and is treated accordingly. 3.??Hypertension??I10 Patient is on amlodipine recently started a week ago. ??She will continue to check her blood pressure??twice daily. ??Her blood pressure improved with no therapy here in the emergency department. ??Discharge blood pressure 158/88 with a heart rate of 66 bpm??saturating 98% on room air. Orders: Normal Saline Flush, 10 mL, IV Flush, Injection, As Directed, PRN line analyst, First Dose: 03/17/23 11:53:00 EDT, Routine Cardiac Monitoring, 03/17/23 11:53:00 EDT, Once, Stop date 03/17/23 11:53:00 EDT Oxygen Therapy, Stat, SpO2 goal 92% or greater, Stop date 03/17/23 11:53:00 EDT Vital Signs, 03/17/23 11:53:00 EDT, Constant order, Q15min until stable and SBP greater than 90, then Q1hour Patient Education Hypertension, Adult Chest Wall Pain Follow Up With When Contact Information QUINCY ESCOBEDO NP Within 1 week, only if needed [address] [place] [phone] Additional Instructions: Medication Reconciliation Unchanged busPIRone5 Milligrams Oral (given by mouth) 2 times a day. ?? doxycycline (doxycycline hyclate 100 mg oral capsule)1 Capsules Oral (given by mouth) 2 times a dayfor 5 Days. Refills: 0. ?? estradiol (estradiol 0.5 mg oral tablet) ?? ibuprofen ?? meloxicam (meloxicam 5 mg oral capsule)1 Capsules Oral (given by mouth) every day as needed arthritis. ?? methocarbamol ?? norethindrone (norethindrone 0.35 mg oral tablet) ?? omeprazole (omeprazole 20 mg oral delayed release tablet)1 tab Oral (given by mouth) every day. ?? sertraline ?? SUMAtriptan Problem List/Past Medical History Ongoing Cervicovaginal cytology: LGSIL Cigarette smoker Depressive disorder Ganglion cyst GERD - Gastro-esophageal reflux disease Headache Hyperlipidemia Morbid obesity PCOS- polycystic ovary syndrome Historical No qualifying data Procedure/Surgical History ???Excision Lipoma (Right, Head) (09/17/2022)???Ablation???Arthroscopy of knee???Bursectomy???Excision of ganglion cyst???Foot joint operation???Ligation of bilateral fallopian tubes Medication Administration Given aspirin, 324 mg, Oral Allergies Azithromycin Novaplus??(fainted) buPROPion??(Justin) erythromycin??(made sick) penicillins??(Unknown) Social History Alcohol Never Electronic Cigarette/Vaping Electronic Cigarette Use: Never. Substance Use Current, Marijuana, 3-5 times per week Tobacco Current everyday tobacco user Tobacco Use:. Family History Non-Contributory Diagnostic Results XR Chest 2 Views 03/17/2023 12:18 EDT XR Chest 2 Views ?? 03/17/23 12:16:07 EXAM DESCRIPTION: XR Chest 2 Views ?? 03/17/2023 ? INDICATION: CHEST PAIN ?? COMPARISON: None ?? FINDINGS: Clear lungs with no focal infiltrate or pulmonary edema. Normal cardiomediastinal contour. Normal pleural margins with no pleural effusion or pneumothorax. Mild spondylotic changes of the dorsal spine. ?? IMPRESSION: No active chest disease. ? JOB #: [id number] Electronically Signed By: ?? Signed By: Willam Rocha MD ECG EKG 11:05 AM: EKG demonstrates normal sinus rhythm at 72 bpm; left axis deviation; no objective evidence of acute ischemia or infarction Lab Results CBC and Differential?? LATEST RESULTS?? WBC?? 03/17/23 12:00?? 9.9?? RBC?? 03/17/23 12:00?? 4.65?? Hgb?? 03/17/23 12:00?? 14.2?? Hct?? 03/17/23 12:00?? 42.2?? MCV?? 03/17/23 12:00?? 90.8?? MCH?? 03/17/23 12:00?? 30.5?? MCHC?? 03/17/23 12:00?? 33.6?? RDW-CV?? 03/17/23 12:00?? 12.4?? Platelets?? 03/17/23 12:00?? 276?? MPV?? 03/17/23 12:00?? 10.7 ??High?? Neutro Auto?? 03/17/23 12:00?? 59.8?? Lymph Auto?? 03/17/23 12:00?? 31.0?? [place] Auto?? 03/17/23 12:00?? 7.7?? Eos, Auto?? 03/17/23 12:00?? 0.80?? Basophil Auto?? 03/17/23 12:00?? 0.4?? Imm Gran Auto?? 03/17/23 12:00?? 0.3?? Neutro Absolute?? 03/17/23 12:00?? 5.9?? Lymph Absolute?? 03/17/23 12:00?? 3.1?? [place] Absolute?? 03/17/23 12:00?? 0.8 ??High?? Eos Absolute?? 03/17/23 12:00?? 0.1?? Baso Absolute?? 03/17/23 12:00?? 0.0?? Imm Gran Absolute?? 03/17/23 12:00?? 0.03?? Slide Review?? 03/17/23 12:00?? Not Indicated? Routine Chemistry?? LATEST RESULTS?? Sodium Level?? 03/17/23 12:00?? 135?? Potassium Level?? 03/17/23 12:00?? 3.7?? Chloride Level?? 03/17/23 12:00?? 102?? CO2?? 03/17/23 12:00?? 26?? Alk Phos?? 03/17/23 12:00?? 86?? AST?? 03/17/23 12:00?? 19?? ALT?? 03/17/23 12:00?? 17?? BUN?? 03/17/23 12:00?? 15?? Glucose Level?? 03/17/23 12:00?? 94?? Creatinine Level?? 03/17/23 12:00?? 0.68?? BUN/Creat Ratio?? 03/17/23 12:00?? 22.1 ??High?? Calcium Level?? 03/17/23 12:00?? 9.1?? Protein Total?? 03/17/23 12:00?? 7.1?? Albumin Level?? 03/17/23 12:00?? 3.9?? Globulin?? 03/17/23 12:00?? 3.2?? A/G Ratio?? 03/17/23 12:00?? 1.2?? Bilirubin Total?? 03/17/23 12:00?? 0.3?? Anion Gap?? 03/17/23 12:00?? 7.0?? Lipase Level?? 03/17/23 12:00?? 38?? Osmolality?? 03/17/23 12:00?? 271 ??Low?? eGFR CKD-EPI?? 03/17/23 12:00?? 111? Cardiac Isoenzymes?? LATEST RESULTS?? Troponin-I?? 03/17/23 12:00?? 0.01? Electronically Signed on 03/17/23 12:43 PM Kiel Sandhu DO Emergency department Discharge instructions * Kiel Sandhu DO: PERFORM Event Display: ED Discharge Information Authored Date: [id number] CONSUELO SKELTON :1980 Age:42 years Sex:Female Visit Date:03/17/2023 Primary Care Physician: QUINCY ESCOBEDO NP Discharge Instructions We would like to thank you for allowing us to assist you with your healthcare needs. The following includes patient education materials and information regarding your injury/illness. Diagnosis from Today's Visit Chest wall pain Generalized anxiety disorder Hypertension Discharge Vitals Temperature??(Temporal Artery) 96.8 ??F (36 ??C) Heart Rate??(Peripheral) 63 Heart Rate??(Monitored) 65 Respiratory Rate?? 14 Blood Pressure?? 149/94?? Height?? 64.96 in (165.000 cm) Weight?? 244.76 lb (111.00 kg) BMI?? 41.000 Allergies Azithromycin Novaplus??(fainted) buPROPion??(Justin) erythromycin??(made sick) penicillins??(Unknown) What to Do Next Instructions from Your Care Team It appears you are??EKG, chest x-ray, and laboratory work-up was fortunately reassuring.?? I do suspect??you have underlying??musculoskeletal??cause of your pain.?? Please use??meloxicam??as needed??for pain relief.?? Follow-up with your primary care??nurse practitioner??for further evaluation and management. You Need to Schedule the Following Appointments Follow Up with??QUINCY ESCOBEDO NP When:??Within 1 week, only if needed Where: [address] [place] [id number]- You were treated today on an emergency basis; it may be sweeney to contact your primary care provider to notify them of your visit today. You may have been referred to your regular doctor or a specialist, please follow up as instructed. If your condition worsens or you can't get in to see the doctor, contact the Emergency Department. Medications What How Much When Instructions Next Dose Unchanged busPIRone 5 Milligrams Oral (given by mouth) 2 times a day Unchanged doxycycline (doxycycline hyclate 100 mg oral capsule) 1 Capsules Oral (given by mouth) 2 times a day Duration: 5 Days Unchanged estradiol (estradiol 0.5 mg oral tablet) Unchanged ibuprofen Unchanged meloxicam (meloxicam 5 mg oral capsule) 1 Capsules Oral (given by mouth) Every day as needed for arthritis Unchanged methocarbamol Unchanged norethindrone (norethindrone 0.35 mg oral tablet) Unchanged omeprazole (omeprazole 20 mg oral delayed release tablet) 1 tab Oral (given by mouth) Every day Unchanged sertraline Unchanged SUM[employer] Hypertension, Adult High blood pressure (hypertension) is when the force of blood pumping through the arteries is too strong. The arteries are the blood vessels that carry blood from the heart throughout the body. Hypertension forces the heart to work harder to pump blood and may cause arteries to become narrow or stiff. Untreated or uncontrolled hypertension can cause a heart attack, heart failure, a stroke, kidneydisease, and other problems. A blood pressure reading consists of a higher number over a lower number. Ideally, your blood pressure should be below 120/80. The first (top) number is called the systolic pressure. It is a measure of the pressure in your arteries as your heart beats. The second (bottom) number is called the diastolic pressure. It is a measure of the pressure in your arteries as the heart relaxes. What are the causes? The exact cause of this condition is not known. There are some conditions that result in or are related to high blood pressure. What increases the risk? Some risk factors for high blood pressure are under your control. The following factors may make you more likely to develop this condition: ? Smoking. ? Having type 2 diabetes mellitus, high cholesterol, or both. ? Not getting enough exercise or physical activity. ? Being overweight. ? Having too much fat, sugar, calories, or salt (sodium) in your diet. ? Drinking too much alcohol. Some risk factors for high blood pressure may be difficult or impossible to change. Some of these factors include: ? Having chronic kidney disease. ? Having a family history of high blood pressure. ? Age. Risk increases with age. ? Race. You may be at higher risk if you are . ? Gender. Men are at higher risk than women before age 45. After age 65, women are at higher risk than men. ? Having obstructive sleep apnea. ? Stress. What are the signs or symptoms? High blood pressure may not cause symptoms. Very high blood pressure (hypertensive crisis) may cause: ? Headache. ? Anxiety. ? Shortness of breath. ? Nosebleed. ? Nausea and vomiting. ? Vision changes. ? Severe chest pain. ? Seizures. How is this diagnosed? This condition is diagnosed by measuring your blood pressure while you are seated, with your arm resting on a flat surface, your legs uncrossed, and your feet flat on the floor. The cuff of the bloodpressure monitor will be placed directly against the skin of your upper arm at the level of your heart. It should be measured at least twice using the same arm. Certain conditions can cause a difference in blood pressure between your right and left arms. Certain factors can cause blood pressure readings to be lower or higher than normal for a short period of time: ? When your blood pressure is higher when you are in a health care provider's office than when you are at home, this is called white coat hypertension. Most people with this condition do not need medicines. ? When your blood pressure is higher at home than when you are in a health care provider's office, this is called masked hypertension. Most people with this condition may need medicines to control blood pressure. If you have a high blood pressure reading during one visit or you have normal blood pressure with other risk factors, you may be asked to: ? Return on a different day to have your blood pressure checked again. ? Monitor your blood pressure at home for 1 week or longer. If you are diagnosed with hypertension, you may have other blood or imaging tests to help your health care provider understand your overall risk for other conditions. How is this treated? This condition is treated by making healthy lifestyle changes, such as eating healthy foods, exercising more, and reducing your alcohol intake. Your health care provider may prescribe medicine if lifestyle changes are not enough to get your blood pressure under control, and if: ? Your systolic blood pressure is above 130. ? Your diastolic blood pressure is above 80. Your personal target blood pressure may vary depending on your medical conditions, your age, and other factors. Follow these instructions at home: Eating and drinking ? Eat a diet that is high in fiber and potassium, and low in sodium, added sugar, and fat. An exampleeating plan is called the DASH (Dietary Approaches to Stop Hypertension) diet. To eat this way: ? Eat plenty of fresh fruits and vegetables. Try to fill one half of your plate at each meal with fruits and vegetables. ? Eat whole grains, such as whole-wheat pasta, brown rice, or whole-grain bread. Fill about one fourth of your plate with whole grains. ? Eat or drink low-fat dairy products, such as skim milk or low-fat yogurt. ? Avoid fatty cuts of meat, processed or cured meats, and poultry with skin. Fill about one fourth ofyour plate with lean proteins, such as fish, chicken without skin, beans, eggs, or tofu. ? Avoid pre-made and processed foods. These tend to be higher in sodium, added sugar, and fat. ? Reduce your daily sodium intake. Most people with hypertension should eat less than 1,500 mg of sodium a day. ? Do not drink alcohol if: ? Your health care provider tells you not to drink. ? You are , may be , or are planning to become . ? If you drink alcohol: ? Limit how much you use to: ? 0???1 drink a day for women. ? 0???2 drinks a day for men. ? Be aware of how much alcohol is in your drink. In the [place] one drink equals one 12 oz bottle of beer (355 mL), one 5 oz glass of wine (148 mL), or one 1?? oz glass of hard liquor (44 mL). Lifestyle ? Work with your health care provider to maintain a healthy body weight or to lose weight. Ask what an ideal weight is for you. ? Get at least 30 minutes of exercise most days of the week. Activities may include walking, swimming, or biking. ? Include exercise to strengthen your muscles (resistance exercise), such as Pilates or lifting weights, as part of your weekly exercise routine. Try to do these types of exercises for 30 minutes at least 3 days a week. ? Do not use any products that contain nicotine or tobacco, such as cigarettes, e- cigarettes, and chewing tobacco. If you need help quitting, ask your health care provider. ? Monitor your blood pressure at home as told by your health care provider. ? Keep all follow-up visits as told by your health care provider. This is important. Medicines ? Take lkvd-qer-hxnjssm and prescription medicines only as told by your health care provider. Follow directions carefully. Blood pressure medicines must be taken as prescribed. ? Do not skip doses of blood pressure medicine. Doing this puts you at risk for problems and can makethe medicine less effective. ? Ask your health care provider about side effects or reactions to medicines that you should watch for. Contact a health care provider if you: ? Think you are having a reaction to a medicine you are taking. ? Have headaches that keep coming back (recurring). ? Feel dizzy. ? Have swelling in your ankles. ? Have trouble with your vision. Get help right away if you: ? Develop a severe headache or confusion. ? Have unusual weakness or numbness. ? Feel faint. ? Have severe pain in your chest or abdomen. ? Vomit repeatedly. ? Have trouble breathing. Summary ? Hypertension is when the force of blood pumping through your arteries is too strong. If this condition is not controlled, it may put you at risk for serious complications. ? Your personal target blood pressure may vary depending on your medical conditions, your age, and other factors. For most people, a normal blood pressure is less than 120/80. ? Hypertension is treated with lifestyle changes, medicines, or a combination of both. Lifestyle changes include losing weight, eating a healthy, low-sodium diet, exercising more, and limiting alcohol. This information is not intended to replace advice given to you by your health care provider. Make sure you discuss any questions you have with your health care provider. Document Revised: 06/28/2019 Document Reviewed: 06/28/2019 [employer] Patient Education ?? 2021 [employer] Chest Wall Pain Chest wall pain is pain in or around the bones and muscles of your chest. Sometimes, an injury causes this pain. Excessive coughing or overuse of arm and chest muscles may also cause chest wall pain.Sometimes, the cause may not be known. This pain may take several weeks or longer to get better. Follow these instructions at home: Managing pain, stiffness, and swelling ? If directed, put ice on the painful area: ? Put ice in a plastic bag. ? Place a towel between your skin and the bag. ? Leave the ice on for 20 minutes, 2???3 times per day. Activity ? Rest as told by your health care provider. ? Avoid activities that cause pain. These include any activities that use your chest muscles or your abdominal and side muscles to lift heavy items. Ask your health care provider what activities are safe for you. General instructions ? Take aujr-hzt-hasorwi and prescription medicines only as told by your health care provider. ? Do not use any products that contain nicotine or tobacco, such as cigarettes, e- cigarettes, and chewing tobacco. These can delay healing after injury. If you need help quitting, ask your health care provider. ? Keep all follow-up visits as told by your health care provider. This is important. Contact a health care provider if: ? You have a fever. ? Your chest pain becomes worse. ? You have new symptoms. Get help right away if: ? You have nausea or vomiting. ? You feel sweaty or light-headed. ? You have a cough with mucus from your lungs (sputum) or you cough up blood. ? You develop shortness of breath. These symptoms may represent a serious problem that is an emergency. Do not wait to see if the symptoms will go away. Get medical help right away. Call your local emergency services (911 in the [place] Do not drive yourself to the hospital. Summary ? Chest wall pain is pain in or around the bones and muscles of your chest. ? Depending on the cause, it may be treated with ice, rest, medicines, and avoiding activities that cause pain. ? Contact a health care provider if you have a fever, worsening chest pain, or new symptoms. ? Get help right away if you feel light-headed or you develop shortness of breath. These symptoms maybe an emergency. This information is not intended to replace advice given to you by your health care provider. Make sure you discuss any questions you have with your health care provider. Document Revised: 01/02/2022 Document Reviewed: 01/02/2022 [employer] Patient Education ?? 2021 [employer] Tests Performed Radiology XR Chest 2 Views 03/17/2023 12:18 EDT Medications and Immunizations Administered Given aspirin, 324 mg, Oral Lab Test Name Test Result Date/Time Slide Review Not Indicated 03/17/2023 12:00 EDT WBC 9.9 K/mcL 03/17/2023 12:00 EDT RBC 4.65 Million/mcL 03/17/2023 12:00 EDT Hgb 14.2 g/dL 03/17/2023 12:00 EDT Hct 42.2 % 03/17/2023 12:00 EDT MCV 90.8 fL 03/17/2023 12:00 EDT MCH 30.5 pg 03/17/2023 12:00 EDT MCHC 33.6 g/dL 03/17/2023 12:00 EDT RDW-CV 12.4 % 03/17/2023 12:00 EDT Platelets 276 K/mcL 03/17/2023 12:00 EDT MPV 10.7 fL 03/17/2023 12:00 EDT Neutro Auto 59.8 % 03/17/2023 12:00 EDT Lymph Auto 31.0 % 03/17/2023 12:00 EDT [place] Auto 7.7 % 03/17/2023 12:00 EDT Eos, Auto 0.80 % 03/17/2023 12:00 EDT Basophil Auto 0.4 % 03/17/2023 12:00 EDT Imm Gran Auto 0.3 % 03/17/2023 12:00 EDT Neutro Absolute 5.9 K/mcL 03/17/2023 12:00 EDT Lymph Absolute 3.1 K/mcL 03/17/2023 12:00 EDT [place] Absolute 0.8 K/mcL 03/17/2023 12:00 EDT Eos Absolute 0.1 K/mcL 03/17/2023 12:00 EDT Baso Absolute 0.0 K/mcL 03/17/2023 12:00 EDT Imm Gran Absolute 0.03 03/17/2023 12:00 EDT Sodium Level 135 mmol/L 03/17/2023 12:00 EDT Potassium Level 3.7 mmol/L 03/17/2023 12:00 EDT Chloride Level 102 mmol/L 03/17/2023 12:00 EDT CO2 26 mmol/L 03/17/2023 12:00 EDT Alk Phos 86 IntlUnit/L 03/17/2023 12:00 EDT AST 19 IntlUnit/L 03/17/2023 12:00 EDT ALT 17 IntlUnit/L 03/17/2023 12:00 EDT BUN 15 mg/dL 03/17/2023 12:00 EDT Glucose Level 94 mg/dL 03/17/2023 12:00 EDT Creatinine Level 0.68 mg/dL 03/17/2023 12:00 EDT BUN/Creat Ratio 22.1 03/17/2023 12:00 EDT Calcium Level 9.1 mg/dL 03/17/2023 12:00 EDT Protein Total 7.1 g/dL 03/17/2023 12:00 EDT Albumin Level 3.9 g/dL 03/17/2023 12:00 EDT Globulin 3.2 03/17/2023 12:00 EDT A/G Ratio 1.2 03/17/2023 12:00 EDT Bilirubin Total 0.3 mg/dL 03/17/2023 12:00 EDT Anion Gap 7.0 03/17/2023 12:00 EDT Lipase Level 38 unit/L 03/17/2023 12:00 EDT Osmolality 271 mOsm/kg 03/17/2023 12:00 EDT eGFR CKD-EPI 111 mL/min/1.73 m2 03/17/2023 12:00 EDT Troponin-I 0.01 ng/mL 03/17/2023 12:00 EDT Patient/Product Development Actuary Signature Patient Name:CONSUELO SKELTON I have received this information and my questions have been answered. Patient/Product Development Actuary Name: Patient/Product Development Actuary Signature: Relationship to Patient: Witness Name/Signature: Date: Electronically Signed on: 03/17/2023 12:37 EDTSigned by:SEAN XR Chest 2 Views * Willam Rocha MD: VERIFY, VERIFY Event Display: Report EXAM DESCRIPTION: XR Chest 2 Views 03/17/2023 INDICATION: CHEST PAIN COMPARISON: None FINDINGS: Clear lungs with no focal infiltrate or pulmonary edema. Normal cardiomediastinal contour. Normal pleural margins with no pleural effusion or pneumothorax. Mild spondylotic changes of the dorsal spine. IMPRESSION: No active chest disease. JOB #: [id number] Final Signed by: Willam Rocha MD Signed (Electronic Signature): 03/17/2023 12:16 pm Patient Care team information Care Team Personnel Name: QUINCY ESCOBEDO NP Position: No Access Member Role: Primary Care Physician Address: Address: [address] [place] [id number] Name: Kiel Sandhu DO Position: Physician Member Role: Attending Physician Address: Address: [address] [place] [id number] Name: Estelita Reyes Position: Nurse Member Role: ED Nurse Care Team Related Persons Name: JUAN AMES
--- OUTSIDE RECORDS SUMMARY | 2024-04-23 22:02 | XMS_ITS | Continuity of Care Document ---
Author Name Unknown Organization [facility] Amb[facility] Address [address] [place] [address] Care Team Providers Care Prize Coordinator Name Role Phone QUINCY ESCOBEDO Primary Care Physician [phone] Encounter [facility] NBR [id number] Date(s): 09/29/22 - 09/29/22 [facility] [address] [place], [place] [address] Encounter Diagnosis Visit for suture removal(Discharge Diagnosis) - 09/28/22 Discharge Disposition: Home or Self Care Attending Physician: AUSTEN Rios Allergies, Adverse Reactions, Alerts Substance Reaction Severity Status erythromycin made sick Unknown Active penicillins Unknown Unknown Active buPROPion Justin Unknown Active Azithromycin Novaplus fainted Unknown Active Medications busPIRone 5 mg =, Oral, BID, [...] documented surgical case 2Utero ablation 3left knee Social History Social History Type Response Tobacco Current everyday tob acco user Tobacco Use:. Sex Physician Outpatient Note * AUSTEN Rios: PERFORM, MODIFY, MODIFY Event Display: Office Clinic Note Physician Authored Date: [id number] CONSUELO SKELTON :1980 Age:42 years Sex:Female Visit Date:09/29/2022 Primary Care Physician: QUINCY ESCOBEDO Chief Complaint Post op visit History of Present Illness Established patient here in office today for Post-op visit patient had hairline lipoma removed fromright forehead on 09/17/22 Review of Systems Negative for: no new cardiac, respiratory, GI, , hematologic, neurologic, psychological, allergic, traumatic or endocrine problems except as listed above Physical Exam GENERAL APPEARANCE:??The patient is awake, alert, and oriented and in no acute distress, Appears nutritionally sound, Healthy in appearance, Voice is strong, with no stridor or stertor, Handling secretions without difficulty.?PSYCH:??affect normal, good eye contact, oriented to person, oriented to place, oriented to time.?NEURO:??CN's II-XII grossly intact, Gait is normal,?HEENT:??The patient is normocephalic with a normal facies?NECK:??There is no palpable lymphadenopathy.?HEART:??regular rate and rhythm.?LUNGS:??clear to auscultation bilaterally, no wheezes/rhonchi/rales.?SKIN:??well healing surgical scar right forehead. ?MUSCULOSKELETAL:??normal gait and station.?? Procedure The patient has been seen today postoperatively for evaluation and suture removal. The incision site is healing well, there is no evidence of excessive scar contracture, dehiscence or purulence. I have recommended postoperative scar massage with either a cocoa butter lotion or [id number] scarmassage lotions. Sutures were removed without complication. The patient tolerated the procedure well Assessment/Plan 1.??Visit for suture removal??Z48.02 well healing surgical site. follow up as needed. Problem List/Past Medical History Ongoing Cervicovaginal cytology: LGSIL Cigarette smoker Depressive disorder Ganglion cyst GERD - Gastro-esophageal reflux disease Headache Hyperlipidemia Morbid obesity PCOS- polycystic ovary syndrome Historical No qualifying data Procedure/Surgical History ???Excision Lipoma (Right, Head) (09/17/2022)???Ablation???Arthroscopy of knee???Bursectomy???Excision of ganglion cyst???Foot joint operation???Ligation of bilateral fallopian tubes Medications busPIRone, 5 mg, Oral, BID doxycycline hyclate 100 mg oral capsule, 100 mg= 1 cap, Oral, BID estradiol 0.5 mg oral tablet ibuprofen meloxicam 5 mg oral capsule, 5 mg= 1 cap, Oral, Daily, PRN methocarbamol norethindrone 0.35 mg oral tablet omeprazole 20 mg oral delayed release tablet, 20 mg= 1 tab, Oral, Daily sertraline SUMAtriptan Allergies Azithromycin Novaplus??(fainted) buPROPion??(Justin) erythromycin??(made sick) penicillins??(Unknown) Social History Alcohol Never Electronic Cigarette/Vaping Electronic Cigarette Use: Never. Substance Use Current, Marijuana, 3-5 times per week Tobacco Current everyday tobacco user Tobacco Use:. Electronically Signed on 09/29/22 01:26 PM AUSTEN Rios Patient Care team information Personnel Name: QUINCY ESCOBEDO Address: Address: [address] [place] [phone] [id number]
--- OUTSIDE RECORDS SUMMARY | 2024-04-23 22:02 | XMS_ITS | Continuity of Care Document ---
Author Name Unknown Organization [facility] Address [address] [place] [address] Care Team Providers Care Residential Leasing Agent Name Role Phone GREGG HENRIQUEZ, QUINCY Primary Care Physician Encounter LTTL_SC FIN NBR [id number] Date(s): 09/20/23 - 09/20/[address] [phone] Encounter Diagnosis Ovarian cyst(Discharge Diagnosis) - 09/20/23 Low back pain(Discharge Diagnosis) - 09/20/23 Nephrolithiasis(Discharge Diagnosis) - 09/20/23 Discharge Disposition: Home or Self Care Attending Physician: Armando Ayala MD Admitting Physician: Armando Ayala MD Allergies, Adverse Reactions, Alerts Substance Reaction Severity Status erythromycin made sick Unknown Active penicillins Unknown Unknown Active buPROPion Justin Unknown Active Azithromycin Novaplus fainted Unknown Active Functional Status 09/20/23 Family Member Travel History No recent t ravel Recent Travel History No recent travel Medications busPIRone 5 mg =, Oral, BID, 0 Refill(s) Start Date: 09/04/22 Status: Ordered doxycycline hyclate 100 mg oral capsule 100 mg = 1 cap, Oral, BID, # 10 cap, 0 Refill(s) Start Date: 09/17/22 Stop Date: 09/22/22 Status: Ordered estradiol 0.5 mg oral tablet 0 Refill(s) Start Date: 09/04/22 Status: Ordered ibuprofen 0 Refill(s) Start Date: 09/04/22 Status: Ordered ibuprofen 600 mg oral tablet 600 mg = 1 tab, Oral, every 8 hr, X 5 days, # 15 tab, 0 Refill(s), 09/25/23 11:40:00 AM [facility], Pharmacy: [id number], 165.1, cm, 09/20/23 10:14:00 EST, Height, 108.86, kg, 09/20/23 10:14:00 EST, Weight Dosing Start Date: 09/20/23 Stop Date: 09/25/23 Status: Ordered losartan 0 Refill(s) Start Date: 09/20/23 Status: Ordered meloxicam 5 mg oral capsule [...] 0 Refill(s) Start Date: 09/16/22 Status: Ordered phentermine 8 mg oral tablet 4 mg = 0.5 tab, Oral, TID(AC), 0 Refill(s) Start Date: 09/20/23 Status: Ordered sertraline 0 Refill(s) Start Date: 09/04/22 Status: Ordered SUMAtriptan 0 Refill(s) Start Date: 09/04/22 Status: Ordered Mental Status 09/20/23 Eye Opening Response Keene Spontaneous ly Best Verbal Response Keene Oriented Best Motor Response Keene Obeys comman ds Keene Coma Score 15 Problem List Condition Confirmation Course Effective Dates [...] 3left knee Results Laboratory List Name Date Automated Diff 09/20/23 CBC w/ Diff 09/20/23 Comprehensive Metabolic Panel (CMP) 09/02 Lipase Level 09/20/23 Most recent to oldest [Reference Range]: 1 WBC [4.8-10.8 K/mcL] 9.7 K/mcL (09/20/23 10:16 AM) RBC [4.20-5.40 Million/mcL] 4.41 Million /mcL (09/20/23 10:16 AM) Neutro Auto [42.2-75.2 %] 57.8 % (09/20/23 10:16 AM) Lymph Auto [20.5-51.1 %] 34.5 % (09/20/23 10:16 AM) [place] Auto [1.7-9.3 %] 6.5 % (09/20/23 10:16 AM) Basophil Auto [0.0-0.8 %] 0.4 % (09/20/23 10:16 AM) BUN [8-26 mg/dL] 11 mg/dL (09/20/23 10:16 AM) Glucose Level [74-106 mg/dL] 96 mg/dL (09/20/23 10:16 AM) Potassium Level [3.5-5.1 mmol/L] 3.3 mmo l/L *LOW* (09/20/23 10:16 AM) Baso Absolute [0.0-0.2 K/mcL] 0.0 K/mcL (09/20/23 10:16 AM) MCV [81.0-99.0 fL] 92.1 fL (09/20/23 10:16 AM) AST [15-41 IntlUnit/L] 15 IntlUnit/L (09/20/23 10:16 AM) ALT [14-54 IntlUnit/L] 13 IntlUnit/L *LOW* (09/20/23 10:16 AM) MCHC [32.0-37.0 g/dL] 32.8 g/dL (09/20/23 10:16 AM) Osmolality [275-295 mOsm/kg] 269 mOsm/kg *LOW* (09/20/23 10:16 AM) Sodium Level [134-143 mmol/L] 135 mmol/L (09/20/23 10:16 AM) Lymph Absolute [1.2-3.4 K/mcL] 3.4 K/mcL (09/20/23 10:16 AM) Hct [37.0-47.0 %] 40.6 % (09/20/23 10:16 AM) Lipase Level [18-51 unit/L] 31 unit/L 1 (09/20/23 10:16 AM) Calcium Level [8.9-10.3 mg/dL] 9.1 mg/dL (09/20/23 10:16 AM) [place] Absolute [0.1-0.6 K/mcL] 0.6 K/mcL (09/20/23 10:16 AM) Albumin Level [3.5-5.0 g/dL] 4.0 g/dL (09/20/23 10:16 AM) Protein Total [6.5-8.1 g/dL] 7.3 g/dL (09/20/23 10:16 AM) MCH [27.0-31.0 pg] 30.2 pg (09/20/23 10:16 AM) Neutro Absolute [1.4-6.5 K/mcL] 5.6 K/mc L (09/20/23 10:16 AM) Bilirubin Total [0.2-1.2 mg/dL] 0.5 mg/d L (09/20/23 10:16 AM) Hgb [12.0-16.0 g/dL] 13.3 g/dL (09/20/23 10:16 AM) Alk Phos [38-130 IntlUnit/L] 78 IntlUnit /L (09/20/23 10:16 AM) MPV [7.4-10.4 fL] 10.0 fL (09/20/23 10:16 AM) Platelets [130-400 K/mcL] 329 K/mcL (09/20/23 10:16 AM) CO2 [22-32 mmol/L] 27 mmol/L (09/20/23 10:16 AM) Eos Absolute [0.0-0.2 K/mcL] 0.0 K/mcL (09/20/23 10:16 AM) Chloride Level [98-111 mmol/L] 103 mmol/ L (09/20/23 10:16 AM) RDW-CV [11.5-14.5 %] 12.7 % (09/20/23 10:16 AM) A/G Ratio [1.0-2.5 g/dL] 1.2 g/dL (09/20/23 10:16 AM) BUN/Creat Ratio [8.0-20.0] 16.9 (09/20/23 10:16 AM) Globulin [2.3-3.5 g/dL] 3.3 g/dL (09/20/23 10:16 AM) Imm Gran Absolute [0.00-0.02 K/mcL] 0.03 K/mcL *HI* (09/20/23 10:16 AM) Imm Gran Auto [0.0-0.5 %] 0.3 % (09/20/23 10:16 AM) Creatinine Level [0.44-1.00 mg/dL] 0.65 mg/dL (09/20/23 10:16 AM) Anion Gap [3.0-12.0] 5.0 (09/20/23 10:16 AM) Eos, Auto [0.00-3.00 %] 0.50 % (09/20/23 10:16 AM) eGFR CKD-EPI [>=60 mL/min/1.73 m2] 112 m L/min/1.73 m2 (09/20/23 10:16 AM) 1Interpretive Data: Y-lwbnza-p-benzoquinone imine (meabolite of Acetaminophen) will generate erroneously low lipase results in samples for patients that have taken toxic doses of acetaminophen. Radiology Reports * Exam Date Time Procedure Performing Provider Status 09/20/23 12:19 PM US Pelvic Complete Kendra Vazquez; Au th (Verified) Notes: (US Pelvic Complete) Reason For Exam: Right ovarian cyst R/O torsion US Pelvic Complete EXAM DESCRIPTION: US Pelvic Complete 09/20/2023 INDICATION: RIGHT OVARIAN CYST R/O TORSION TECHNIQUE: Transabdominal and transvaginal Grayscale and color Doppler ultrasound examination of the pelvis. Static and cine clip images were obtained. COMPARISON: CT abdomen/pelvis examination from 09/20/2023, 1046 hours FINDINGS: The uterus measures 3.1 cm x 6.9 cm x 4.5 cm. Heterogeneous myometrial appearance. Ovoid intermediate echogenic lesion suspicious for fibroid measuring 2 x 1.8 x 1.7 cm. The endometrial stripe was not well defined. The left ovary measures 1.4 cm x 2.6 cm x 1.8 cm. No solid or cystic left ovarian mass identified. The right ovary measures 3.6 cm x 4.6 cm x 4 cm. Ovoid anechoic lesion on the right ovary with through transmission consistent with cyst measuring 3.3 x 3.3 x 3 cm. This was described on recent CT examination Color-flow and Doppler analysis demonstrated ovarian region blood flow bilaterally. No free fluid. IMPRESSION: Simple appearing right ovarian cyst measuring 3.3 x 3.3 x 3 cm. Normal left ovary Color-flow and Doppler analysis demonstrated bilateral ovarian blood flow Small uterine fibroid suspected measuring 2 x 1.8 x 1.7 cm Endometrium not well defined. This may reflect history of previous endometrial ablation No free fluid. JOB #: [id number] Final Signed by: Willam Rocha MD Signed (Electronic Signature): 09/20/2023 12:20 pm * Exam Date Time Procedure Performing Provider Status 09/20/23 10:[address] Abdomen and Pelvi s w/ Contrast Myranda Gonzáles (Verified) Notes: (CT Abdomen and Pelvis w/ Contrast) Reason For Exam: Lower abdominal pain CT Abdomen and Pelvis w/ Contrast EXAM DESCRIPTION: CT Abdomen and Pelvis w/ Contrast 09/20/2023 INDICATION: LOWER ABDOMINAL PAIN TECHNIQUE: All CT scans at this facility use at least one of these dose optimization techniques: Automated exposure control; mA and/or kV adjustment per patient size (includes targeted exams where dose is matched to clinical indication); or iterative reconstruction. Technique: Axial CT images of the abdomen/pelvis with IV contrast administration 100 cc of Isovue-300 contrast was utilized COMPARISON: None FINDINGS: No focal hepatic lesion. Normal enhancement of the main portal vein. Normal spleen size without focal mass No calcified gallstones in the gallbladder. Adrenal glands and pancreas appear within normal limits. Small nonobstructing renal calculi bilaterally. No focal renal mass or hydronephrosis on either side. No perinephric fluid collection Normal caliber abdominal aorta No retroperitoneal adenopathy in the abdomen or pelvis. Ovoid fluid attenuation lesion in the right adnexa consistent with right ovarian cyst measuring 3.5 x 3.4 cm. No bowel dilatation to suggest obstruction or ileus. No free intraperitoneal air, ascites or inflammatory changes. Normal appendix. The visualized lung bases are clear. No suspicious regional osseous lesions. Spondylotic changes in the visualized spinal axis. IMPRESSION: Right ovarian cyst measuring 3.5 x 3.4 cm Nonobstructive bowel pattern. No free air or inflammatory changes. Normal appendix. JOB #: [id number] Final Signed by: Willam Rocha MD Signed (Electronic Signature): 09/20/2023 11:09 am Vital Signs Most recent to oldest [Reference Range]: 1 2 Temperature Temporal Artery [36-38 Deg C ] 36.1 Deg C (09/20/23 10:03 AM) Peripheral Pulse Rate [60-100 bpm] 75 bp m (09/20/23 10:03 AM) Respiratory Rate [12-24 br/min] 18 br/mi n (09/20/23 10:03 AM) Blood Pressure [90-140/60-90 mmHg] 167/9 9mmHg *HI* (09/20/23 10:03 AM) Mean Arterial Pressure, Cuff [70-110 mmHg] 122 mmHg *>HHI* (09/20/23 10:03 AM) Weight 108.86 kg (09/20/23 10:03 AM) Weight Dosing 108.86 kg (09/20/23 10:14 AM) Height 165.100 cm (09/20/23 10:14 AM) 165.100 cm (09/20/23 10:03 AM) Body Mass Index 40.000 kg/m2 (09/20/23 10:03 AM) Social History Social History Type Response Tobacco Current everyday tob acco user Tobacco Use:. Sex Hospital Discharge Instructions Patient Education 09/20/2023 11:43:16 Kidney Stones Kidney Stones Kidney stones are solid, rock-like deposits that form inside of the kidneys. The kidneys are a pairof organs that make urine. A kidney stone may form in a kidney and move into other parts of the urinary tract, including the tubes that connect the kidneys to the bladder (ureters), the bladder, and the tube that carries urine out of the body (urethra). As the stone moves through these areas, it can cause intense pain and block the flow of urine. Kidney stones are created when high levels of certain minerals are found in the urine. The stones are usually passed out of the body through urination, but in some cases, medical treatment may be needed to remove them. What are the causes? Kidney stones may be caused by: ??? A condition in which certain glands produce too much parathyroid hormone (primary hyperparathyroidism), which causes too much calcium buildup in the blood. ??? A buildup of uric acid crystals in the bladder (hyperuricosuria). Uric acid is a chemical that the body produces when you eat certain foods. It usually exits the body in the urine. ??? Narrowing (stricture) of one or both of the ureters. ??? A kidney blockage that is present at (congenital obstruction). ??? Past surgery on the kidney or the ureters, such as gastric bypass surgery. What increases the risk? The following factors may make you more likely to develop this condition: ??? Having had a kidney stone in the past. ??? Having a family history of kidney stones. ??? Not drinking enough water. ??? Eating a diet that is high in protein, salt (sodium), or sugar. ??? Being overweight or obese. What are the signs or symptoms? Symptoms of a kidney stone may include: ??? Pain in the side of the abdomen, right below the ribs (flank pain). Pain usually spreads (radiates) to the groin. ??? Needing to urinate frequently or urgently. ??? Painful urination. ??? Blood in the urine (hematuria). ??? Nausea. ??? Vomiting. ??? Fever and chills. How is this diagnosed? This condition may be diagnosed based on: ??? Your symptoms and medical history. ??? A physical exam. ??? Blood tests. ??? Urine tests. These may be done before and after the stone passes out of your body through urination. ??? Imaging tests, such as a CT scan, abdominal X-ray, or ultrasound. ??? A procedure to examine the inside of the bladder (cystoscopy). How is this treated? Treatment for kidney stones depends on the size, location, and makeup of the stones. Kidney stones will often pass out of the body through urination. You may need to: ??? Increase your fluid intake to help pass the stone. In some cases, you may be given fluids through an IV and may need to be monitored at the hospital. ??? Take medicine for pain. ??? Make changes in your diet to help prevent kidney stones from coming back. Sometimes, medical procedures are needed to remove a kidney stone. This may involve: ??? A procedure to break up kidney stones using: ??? A focused beam of light (laser therapy). ??? Shock waves (extracorporeal shock wave lithotripsy). ??? Surgery to remove kidney stones. This may be needed if you have severe pain or have stones thatblock your urinary tract. Follow these instructions at home: Medicines ??? Take ilii-art-bboofks and prescription medicines only as told by your health care provider. ??? Ask your health care provider if the medicine prescribed to you requires you to avoid driving or using heavy machinery. Eating and drinking ??? Drink enough fluid to keep your urine pale yellow. You may be instructed to drink at least 8???10 glasses of water each day. This will help you pass the kidney stone. ??? If directed, change your diet. This may include: ??? Limiting how much sodium you eat. ??? Eating more fruits and vegetables. ??? Limiting how much animal protein???such as red meat, poultry, fish, and eggs???you eat. ??? Follow instructions from your health care provider about eating or drinking restrictions. General instructions ??? Collect urine samples as told by your health care provider. You may need to collect a urine sample: ??? 24 hours after you pass the stone. ??? 8???12 weeks after passing the kidney stone, and every 6???12 months after that. ??? Strain your urine every time you urinate, for as long as directed. Use the strainer that your health care provider recommends. ??? Do not throw out the kidney stone after passing it. Keep the stone so it can be tested by your health care provider. Testing the makeup of your kidney stone may help prevent you from getting kidney stones in the future. ??? Keep all follow-up visits as told by your health care provider. This is important. You may needfollow-up X-rays or ultrasounds to make sure that your stone has passed. How is this prevented? To prevent another kidney stone: ??? Drink enough fluid to keep your urine pale yellow. This is the best way to prevent kidney stones. ??? Eat a healthy diet and follow recommendations from your health care provider about foods to avoid. You may be instructed to eat a low-protein diet. Recommendations vary depending on the type of kidney stone that you have. ??? Maintain a healthy weight. Where to find more information ??? National Kidney Foundation (NKF): www.kidney.org ??? [facility] [facility] (F): www.urologyhealth.org Contact a health care provider if: ??? You have pain that gets worse or does not get better with medicine. Get help right away if: ??? You have a fever or chills. ??? You develop severe pain. ??? You develop new abdominal pain. ??? You faint. ??? You are unable to urinate. Summary ??? Kidney stones are solid, rock-like deposits that form inside of the kidneys. ??? Kidney stones can cause nausea, vomiting, blood in the urine, abdominal pain, and the urge to urinate frequently. ??? Treatment for kidney stones depends on the size, location, and makeup of the stones. Kidney stones will often pass out of the body through urination. ??? Kidney stones can be prevented by drinking enough fluids, eating a healthy diet, and maintaining a healthy weight. This information is not intended to replace advice given to you by your health care provider. Make sure you discuss any questions you have with your health care provider. Document Revised: 07/08/2022 Document Reviewed: 06/22/2022 [employer] Patient Education ?? 2022 [employer]. 09/20/2023 11:42:51 Ovarian Cyst Ovarian Cyst An ovarian cyst is a fluid-filled sac that forms on an ovary. The ovaries are small organs that produce eggs in women. Various types of cysts can form on the ovaries. Some may cause symptoms and require treatment. Most ovarian cysts go away on their own, are not cancerous (are benign), and do not cause problems. What are the causes? Ovarian cysts may be caused by: ??? Ovarian hyperstimulation syndrome. This is a condition that can develop from taking fertility medicines. It causes multiple large ovarian cysts to form. ??? Polycystic ovarian syndrome (PCOS). This is a common hormonal disorder that can cause ovarian cysts to form, and can cause problems with your period or fertility. ??? The normal menstrual cycle. What increases the risk? The following factors may make you more likely to develop this condition: ??? Being overweight or obese. ??? Taking fertility medicines. ??? Taking certain forms of hormonal control. ??? Smoking. What are the signs or symptoms? Many ovarian cysts do not cause symptoms. If symptoms are present, they may include: ??? Pelvic pain or pressure. ??? Pain in the lower abdomen. ??? Pain during sex. ??? Abdominal swelling. ??? Abnormal menstrual periods. ??? Increasing pain with menstrual periods. How is this diagnosed? These cysts are commonly found during a routine pelvic exam. You may have tests to find out more about the cyst, such as: ??? Ultrasound. ??? CT scan. ??? MRI. ??? Blood tests. How is this treated? Many ovarian cysts go away on their own without treatment. Your health care provider may want to check your cyst regularly for 2???3 months to see if it changes. If you are in menopause, it is especially important to have your cyst monitored closely because menopausal women have a higher rate of ovarian cancer. When treatment is needed, it may include: ??? Medicines to help relieve pain. ??? A procedure to drain the cyst (aspiration). ??? Surgery to remove the whole cyst (cystectomy). ??? Hormone treatment or control pills. These methods are sometimes used to help keep cysts from coming back. ??? Surgery to remove the ovary (oophorectomy). Follow these instructions at home: ??? Take ldjb-uer-wscbbpt and prescription medicines only as told by your health care provider. ??? Ask your health care provider if any medicine prescribed to you requires you to avoid driving or using machinery. ??? Get regular pelvic exams and Pap tests as often as told by your health care provider. ??? Return to your normal activities as told by your health care provider. Ask your health care provider what activities are safe for you. ??? Do not use any products that contain nicotine or tobacco, such as cigarettes, e-cigarettes, andchewing tobacco. If you need help quitting, ask your health care provider. ??? Keep all follow-up visits. This is important. Contact a health care provider if: ??? Your periods are late, irregular, painful, or they stop. ??? You have pelvic pain that does not go away. ??? You have pressure on your bladder or trouble emptying your bladder completely. ??? You have any of the following: ??? A feeling of fullness. ??? You are gaining weight or losing weight without changing your exercise and eating habits. ??? Pain, swelling, or bloating in the abdomen. ??? Loss of appetite. ??? Pain and pressure in your back and pelvis. ??? You think you may be . Get help right away if: ??? You have abdominal or pelvic pain that is severe or gets worse. ??? You cannot eat or drink without vomiting. ??? You suddenly develop a fever or chills. ??? Your menstrual period is much heavier than usual. Summary ??? An ovarian cyst is a fluid-filled sac that forms on an ovary. ??? Some ovarian cysts may cause symptoms and require treatment. ??? These cysts are commonly found during a routine pelvic exam. ??? Many ovarian cysts go away on their own without treatment. This information is not intended to replace advice given to you by your health care provider. Make sure you discuss any questions you have with your health care provider. Document Revised: 03/27/2021 Document Reviewed: 03/27/2021 [employer] [place] Patient Education ?? 2022 [employer]. 09/20/2023 11:42:48 Acute Back Pain, Adult Acute Back Pain, Adult Acute back pain is sudden and usually short-lived. It is often caused by an injury to the muscles and tissues in the back. The injury may result from: ??? A muscle, tendon, or ligament getting overstretched or torn. Ligaments are tissues that connectbones to each other. Lifting something improperly can cause a back strain. ??? Wear and tear (degeneration) of the spinal disks. Spinal disks are circular tissue that providecushioning between the bones of the spine (vertebrae). ??? Twisting motions, such as while playing sports or doing yard work. ??? A hit to the back. ??? Arthritis. You may have a physical exam, lab tests, and imaging tests to find the cause of your pain. Acute back pain usually goes away with rest and home care. Follow these instructions at home: Managing pain, stiffness, and swelling ??? Take gywa-bif-tkilayw and prescription medicines only as told by your health care provider. Treatment may include medicines for pain and inflammation that are taken by mouth or applied to the skin, or muscle relaxants. ??? Your health care provider may recommend applying ice during the first 24???48 hours after your pain starts. To do this: ??? Put ice in a plastic bag. ??? Place a towel between your skin and the bag. ??? Leave the ice on for 20 minutes, 2???3 times a day. ??? Remove the ice if your skin turns bright red. This is very important. If you cannot feel pain, heat, or cold, you have a greater risk of damage to the area. ??? If directed, apply heat to the affected area as often as told by your health care provider. Usethe heat source that your health care provider recommends, such as a moist heat pack or a heating pad. ??? Place a towel between your skin and the heat source. ??? Leave the heat on for 20???30 minutes. ??? Remove the heat if your skin turns bright red. This is especially important if you are unable to feel pain, heat, or cold. You have a greater risk of getting burned. Activity ??? Do not stay in bed. Staying in bed for more than 1???2 days can delay your recovery. ??? Sit up and stand up straight. Avoid leaning forward when you sit or hunching over when you stand. ??? If you work at a desk, sit close to it so you do not need to lean over. Keep your chin tucked in. Keep your neck drawn back, and keep your elbows bent at a 90-degree angle (right angle). ??? Sit high and close to the steering wheel when you drive. Add lower back (lumbar) support to your car seat, if needed. ??? Take short walks on even surfaces as soon as you are able. Try to increase the length of time you walk each day. ??? Do not sit, drive, or package dye stand loader one place for more than 30 minutes at a time. Sitting or standing for long periods of time can put stress on your back. ??? Do not drive or use heavy machinery while taking prescription pain medicine. ??? Use proper lifting techniques. When you bend and lift, use positions that put less stress on your back: ??? Bend your knees. ??? Keep the load close to your body. ??? Avoid twisting. ??? Exercise regularly as told by your health care provider. Exercising helps your back heal fasterand helps prevent back injuries by keeping muscles strong and flexible. ??? Work with a physical therapist to make a safe exercise program, as recommended by your health care provider. Do any exercises as told by your physical therapist. Lifestyle ??? Maintain a healthy weight. Extra weight puts stress on your back and makes it difficult to havegood posture. ??? Avoid activities or situations that make you feel anxious or stressed. Stress and anxiety increase muscle tension and can make back pain worse. Learn ways to manage anxiety and stress, such as through exercise. General instructions ??? Sleep on a firm mattress in a comfortable position. Try lying on your side with your knees slightly bent. If you lie on your back, put a pillow under your knees. ??? Keep your head and neck in a straight line with your spine (neutral position) when using electronic equipment like smartphones or pads. To do this: ??? Raise your smartphone or pad to look at it instead of bending your head or neck to look down. ??? Put the smartphone or pad at the level of your face while looking at the screen. ??? Follow your treatment plan as told by your health care provider. This may include: ??? Cognitive or behavioral therapy. ??? Acupuncture or massage therapy. ??? Meditation or yoga. Contact a health care provider if: ??? You have pain that is not relieved with rest or medicine. ??? You have increasing pain going down into your legs or buttocks. ??? Your pain does not improve after 2 weeks. ??? You have pain at night. ??? You lose weight without trying. ??? You have a fever or chills. ??? You develop nausea or vomiting. ??? You develop abdominal pain. Get help right away if: ??? You develop new bowel or bladder control problems. ??? You have unusual weakness or numbness in your arms or legs. ??? You feel faint. These symptoms may represent a serious problem that is an emergency. Do not wait to see if the symptoms will go away. Get medical help right away. Call your local emergency services (911 in the [place] Do not drive yourself to the hospital. Summary ??? Acute back pain is sudden and usually short-lived. ??? Use proper lifting techniques. When you bend and lift, use positions that put less stress on your back. ??? Take [id number] and prescription medicines only as told by your health care provider, andapply heat or ice as told. This information is not intended to replace advice given to you by your health care provider. Make sure you discuss any questions you have with your health care provider. Document Revised: 01/09/2022 Document Reviewed: 01/09/2022 [employer] Patient Education ?? 2022 [employer]. Follow Up Care 09/20/2023 10:03:16 With:Blair Blanco MD Address: [address] [address]- When:1 month With:Korina Red MD Address: [address] [place] [phone] When:1 month Physician Emergency department Note * AUSTEN Grimes: PERFORM Event Display: ED Note Physician Authored Date: [id number] CONSUELO SKELTON :1980 Age:43 years Sex:Female Visit Date:09/20/2023 Primary Care Physician: QUINCY ESCOBEDO NP Basic Information Time Seen: AUSTEN Grimes / 09/20/2023 10:04 Chief Complaint arrived from for kidney stone evaluation; was dx with UTI at but was told this year she had unpassable kidney stones by urology; +trouble passing both urine & stool; -dysuria/fever History Of Present Illness: Patient is a 43-year-old female who presents to the emergency department??after being evaluated at the urgent care prior to her arrival here. ??It is noted that??she has had bilateral low back pain and pelvic pain over the last??several days worsening over the last 24 hours. ??When the pain is at its most intense??she does have some nausea but states that??she does not feel nauseous all the time.??Patient has had a tubal and therefore is low likelihood of Patient has history of??nephrolithiasis that??she was told would not pass??and it would require lithotripsy. ??She declined this at the time which was approximately 1 year ago. Patient has had no fevers during this timeframe she has had difficulty urinating??with frequency ofurination??and is having difficulty with bowel movements. Review of Systems: See HPI for details Physical Exam Vitals & Measurements T:??36.1?C ??(Temporal Artery)?? HR:??75??(Peripheral)?? RR:??18?? BP:??167/99?? SpO2:??97%?? HT:??165.100??cm?? WT:??108.86??kg?? BMI:??40.000?? Pain Score:??8?? O2 Therapy:??Room air?? Patient alert oriented age-appropriate well-nourished nontoxic Normocephalic atraumatic Neck supple nontender EOM intact, PERRLA, sclera nonicteric Clear to auscultation bilaterally Regular rate and rhythm no murmurs Abdominal exam reveals normal bowel sounds, negative rebound tenderness, negative psoas sign,??right greater than left lower quadrant discomfort Normal gait and station, normal strength all extremities Neuro exam intact without focal deficit Appropriate mood and affect Medical Decision Making: At this time??patient was evaluated and found to have a right ovarian cyst??and therefore a CT was employed??to identify the cyst. ??She then had a ultrasound to rule out torsion Ultimately there was no acute findings other than cyst. ??I do not have a good causality of her pain. Patient does have retained nephrolithiasis??and should follow-up for this however??I do not feel that there is any need for antibiotics at this time. Procedure No Qualifying Data Assessment/Plan 1.??Ovarian cyst??N83.209 Patient should follow-up with [facility] to monitor the cyst and??decide whether there needs to be intervention??however at this time it does not meet criteria for urgent evaluation 2.??Low back pain??M54.50 ?? Patient will follow??with primary care for any further??interventions??in regards to pain management however she will stop her meloxicam at this time and be started on ibuprofen 3 times daily. ??She is given a prescription for such.?? Patient understands all aspects of today's visit and agrees with discharge plan as above and below 3.??Nephrolithiasis??N20.0 Patient should follow-up with??primary care to get a referral to Dr. Red so that she may evaluate??and come up with a plan for bilateral nephrolithiasis. Orders: ibuprofen 600 mg oral tablet, 600 mg = 1 tab, Oral, every 8 hr, X 5 days, # 15 tab, 0 Refill(s), 09/25/23 12:40:00 EST, Pharmacy: [id number], 165.1, cm, 09/20/23 10:14:00 EST, Height, 108.86, kg, 09/20/23 10:14:00 EST, Weight Dosing Discharge Patient, 09/20/23 12:43:00 EST Patient Education Kidney Stones Ovarian Cyst Acute Back Pain, Adult Follow Up With When Contact Information Blair Blanco MD Within 1 month [facility] [address] [place] [address]- Additional Instructions: Korina Red MD Within [address] [place] [phone] Additional Instructions: Medication Reconciliation Changed ibuprofen ?? ibuprofen (ibuprofen 600 mg oral tablet)1 tab Oral (given by mouth) every 8 hours for 5 Days. Refills: 0. ?? Unchanged busPIRone5 Milligrams Oral (given by mouth) 2 times a day. ?? doxycycline (doxycycline hyclate 100 mg oral capsule)1 Capsules Oral (given by mouth) 2 times a dayfor 5 Days. Refills: 0. ?? estradiol (estradiol 0.5 mg oral tablet) ?? losartan ?? meloxicam (meloxicam 5 mg oral capsule)1 Capsules Oral (given by mouth) every day as needed arthritis. ?? methocarbamol ?? norethindrone (norethindrone 0.35 mg oral tablet) ?? omeprazole (omeprazole 20 mg oral delayed release tablet)1 tab Oral (given by mouth) every day. ?? phentermine (phentermine 8 mg oral tablet)0.5 tab Oral (given by mouth) 3 times a day before meals. ?? sertraline ?? SUMAtriptan Problem List/Past Medical History Ongoing Cervicovaginal cytology: LGSIL Cigarette smoker Depressive disorder Ganglion cyst GERD - Gastro-esophageal reflux disease Headache Hyperlipidemia Morbid obesity PCOS- polycystic ovary syndrome Historical No qualifying data Procedure/Surgical History ???Excision Lipoma (Right, Head) (09/17/2022)???Ablation???Arthroscopy of knee???Bursectomy???Excision of ganglion cyst???Foot joint operation???Ligation of bilateral fallopian tubes Medication Administration Given Sodium Chloride 0.9%, 1000 mL, IV Bolus Toradol, 15 mg, IV Push Allergies Azithromycin Novaplus??(fainted) buPROPion??(Justin) erythromycin??(made sick) penicillins??(Unknown) Social History Alcohol Never Electronic Cigarette/Vaping Electronic Cigarette Use: Never. Substance Use Current, Marijuana, 3-5 times per week Tobacco Current everyday tobacco user Tobacco Use:. Diagnostic Results CT Abdomen and Pelvis w/ Contrast 09/20/2023 11:12 EST US Pelvic Complete 09/20/2023 12:[address] Abdomen and Pelvis w/ Contrast ?? 09/20/23 11:09:28 EXAM DESCRIPTION: CT Abdomen and Pelvis w/ Contrast ?? 09/20/2023 ?? INDICATION: LOWER ABDOMINAL PAIN ?? TECHNIQUE: All CT scans at this facility use at least one of these dose optimization techniques: Automated exposure control; mA and/or kV adjustment per patient size (includes targeted exams where dose is matched to clinical indication); or iterative reconstruction. ?? Technique: Axial CT images of the abdomen/pelvis with IV contrast administration ?? 100 cc of Isovue-300 contrast was utilized ?? COMPARISON: None ?? FINDINGS: No focal hepatic lesion. Normal enhancement of the main portal vein. ?? Normal spleen size without focal mass ?? No calcified gallstones in the gallbladder. ?? Adrenal glands and pancreas appear within normal limits. ?? Small nonobstructing renal calculi bilaterally. No focal renal mass or hydronephrosis on either side. No perinephric fluid collection ?? Normal caliber abdominal aorta ?? No retroperitoneal adenopathy in the abdomen or pelvis. ?? Ovoid fluid attenuation lesion in the right adnexa consistent with right ovarian cyst measuring 3.5 x 3.4 cm. ?? No bowel dilatation to suggest obstruction or ileus. No free intraperitoneal air, ascites or inflammatory changes. Normal appendix. ?? The visualized lung bases are clear. No suspicious regional osseous lesions. Spondylotic changes in the visualized spinal axis. ?? IMPRESSION: Right ovarian cyst measuring 3.5 x 3.4 cm ?? Nonobstructive bowel pattern. No free air or inflammatory changes. Normal appendix. ? JOB #: [id number] Electronically Signed By: ?? Signed By: Willam Rocha MD ?? US Pelvic Complete ?? 09/20/23 12:20:44 EXAM DESCRIPTION: US Pelvic Complete ?? 09/20/2023 ?? INDICATION: RIGHT OVARIAN CYST R/O TORSION ?? TECHNIQUE: Transabdominal and transvaginal Grayscale and color Doppler ultrasound examination of the pelvis. Static and cine clip images were obtained. ?? COMPARISON: CT abdomen/pelvis examination from 09/20/2023, 1046 hours ?? FINDINGS: The uterus measures 3.1 cm x 6.9 cm x 4.5 cm. Heterogeneous myometrial appearance. Ovoid intermediate echogenic lesion suspicious for fibroid measuring 2 x 1.8 x 1.7 cm. ?? The endometrial stripe was not well defined. ?? The left ovary measures 1.4 cm x 2.6 cm x 1.8 cm. No solid or cystic left ovarian mass identified. ?? The right ovary measures 3.6 cm x 4.6 cm x 4 cm. Ovoid anechoic lesion on the right ovary with through transmission consistent with cyst measuring 3.3 x 3.3 x 3 cm. This was described on recent CT examination ?? Color-flow and Doppler analysis demonstrated ovarian region blood flow bilaterally. ?? No free fluid. ?? IMPRESSION: Simple appearing right ovarian cyst measuring 3.3 x 3.3 x 3 cm. ?? Normal left ovary ?? Color-flow and Doppler analysis demonstrated bilateral ovarian blood flow ?? Small uterine fibroid suspected measuring 2 x 1.8 x 1.7 cm ?? Endometrium not well defined. This may reflect history of previous endometrial ablation ?? No free fluid. ? JOB #: [id number] Electronically Signed By: ?? Signed By: Willam Rocha MD Lab Results CBC and Differential?? LATEST RESULTS?? HISTORICAL RESULTS?? WBC?? 09/20/23 10:16?? 9.7?? 03/17/23?? 9.9?? RBC?? 09/20/23 10:16?? 4.41?? 03/17/23?? 4.65?? Hgb?? 09/20/23 10:16?? 13.3?? 03/17/23?? 14.2?? Hct?? 09/20/23 10:16?? 40.6?? 03/17/23?? 42.2?? MCV?? 09/20/23 10:16?? 92.1?? 03/17/23?? 90.8?? MCH?? 09/20/23 10:16?? 30.2?? 03/17/23?? 30.5?? MCHC?? 09/20/23 10:16?? 32.8?? 03/17/23?? 33.6?? RDW-CV?? 09/20/23 10:16?? 12.7?? 03/17/23?? 12.4?? Platelets?? 09/20/23 10:16?? 329?? 03/17/23?? 276?? MPV?? 09/20/23 10:16?? 10.0?? 03/17/23?? 10.7 ??High?? Neutro Auto?? 09/20/23 10:16?? 57.8?? 03/17/23?? 59.8?? Lymph Auto?? 09/20/23 10:16?? 34.5?? 03/17/23?? 31.0?? [place] Auto?? 09/20/23 10:16?? 6.5?? 03/17/23?? 7.7?? Eos, Auto?? 09/20/23 10:16?? 0.50?? 03/17/23?? 0.80?? Basophil Auto?? 09/20/23 10:16?? 0.4?? 03/17/23?? 0.4?? Imm Gran Auto?? 09/20/23 10:16?? 0.3?? 03/17/23?? 0.3?? Neutro Absolute?? 09/20/23 10:16?? 5.6?? 03/17/23?? 5.9?? Lymph Absolute?? 09/20/23 10:16?? 3.4?? 03/17/23?? 3.1?? [place] Absolute?? 09/20/23 10:16?? 0.6?? 03/17/23?? 0.8 ??High?? Eos Absolute?? 09/20/23 10:16?? 0.0?? 03/17/23?? 0.1?? Baso Absolute?? 09/20/23 10:16?? 0.0?? 03/17/23?? 0.0?? Imm Gran Absolute?? 09/20/23 10:16?? 0.03 ??High?? 03/17/23?? 0.03? Routine Chemistry?? LATEST RESULTS?? HISTORICAL RESULTS?? Sodium Level?? 09/20/23 10:16?? 135?? 03/17/23?? 135?? Potassium Level?? 09/20/23 10:16?? 3.3 ??Low?? 03/17/23?? 3.7?? Chloride Level?? 09/20/23 10:16?? 103?? 03/17/23?? 102?? CO2?? 09/20/23 10:16?? 27?? 03/17/23?? 26?? Alk Phos?? 09/20/23 10:16?? 78?? 03/17/23?? 86?? AST?? 09/20/23 10:16?? 15?? 03/17/23?? 19?? ALT?? 09/20/23 10:16?? 13 ??Low?? 03/17/23?? 17?? BUN?? 09/20/23 10:16?? 11?? 03/17/23?? 15?? Glucose Level?? 09/20/23 10:16?? 96?? 03/17/23?? 94?? Creatinine Level?? 09/20/23 10:16?? 0.65?? 03/17/23?? 0.68?? BUN/Creat Ratio?? 09/20/23 10:16?? 16.9?? 03/17/23?? 22.1 ??High?? eGFR CKD-EPI?? 09/20/23 10:16?? 112?? 03/17/23?? 111?? Calcium Level?? 09/20/23 10:16?? 9.1?? 03/17/23?? 9.1?? Protein Total?? 09/20/23 10:16?? 7.3?? 03/17/23?? 7.1?? Albumin Level?? 09/20/23 10:16?? 4.0?? 03/17/23?? 3.9?? Globulin?? 09/20/23 10:16?? 3.3?? 03/17/23?? 3.2?? A/G Ratio?? 09/20/23 10:16?? 1.2?? 03/17/23?? 1.2?? Bilirubin Total?? 09/20/23 10:16?? 0.5?? 03/17/23?? 0.3?? Anion Gap?? 09/20/23 10:16?? 5.0?? 03/17/23?? 7.0?? Lipase Level?? 09/20/23 10:16?? 31?? 03/17/23?? 38?? Osmolality?? 09/20/23 10:16?? 269 ??Low?? 03/17/23?? 271 ??Low? Electronically Signed on 09/20/23 04:46 PM AUSTEN Grimes Emergency department Discharge instructions * AUSTEN Grimes: PERFORM Event Display: ED Discharge Information Authored Date: [id number] CONSUELO SKELTON :1980 Age:43 years Sex:Female Visit Date:09/20/2023 Primary Care Physician: GREGG HENRIQUEZ, QUINCY Discharge Instructions We would like to thank you for allowing us to assist you with your healthcare needs. The following includes patient education materials and information regarding your injury/illness. Diagnosis from Today's Visit Ovarian cyst Low back pain Nephrolithiasis Discharge Vitals Temperature??(Temporal Artery) 97.0 ??F (36.1 ??C) Heart Rate??(Peripheral) 75 Respiratory Rate?? 18 Blood Pressure?? 167/99?? Height?? 65.00 in (165.100 cm) Weight?? 240.04 lb (108.86 kg) BMI?? 40.000 Allergies Azithromycin Novaplus??(fainted) buPROPion??(Justin) erythromycin??(made sick) penicillins??(Unknown) What to Do Next Instructions from Your Care Team Follow-up with [facility] Dr. Blanco as needed Follow-up with??Dr. Red in urology to discuss??evaluation of kidney stones Follow-up with primary care for any pain management You should return to the emergency department for any new or worsening symptoms A prescription has been sent to your pharmacy utilize this discontinue meloxicam You Need to Schedule the Following Appointments Follow Up with??Blair Blanco MD When:??Within 1 month Where: [address] [address]- Follow Up with??Korina Red MD When:??Within 1 month Where: [address] [place] [phone] You were treated today on an emergency [...] What How Much When Instructions Next Dose Changed ibuprofen Changed ibuprofen (ibuprofen 600 mg oral tablet) 1 tab Oral (given by mouth) Every 8 hours Duration: 5 Days Pickup at [id number] Unchanged busPIRone 5 Milligrams Oral (given by mouth) 2 times a day Unchanged doxycycline (doxycycline hyclate 100 mg oral capsule) 1 Capsules Oral (given by mouth) 2 times a day Duration: 5 Days Unchanged estradiol (estradiol 0.5 mg oral tablet) Unchanged losartan Unchanged meloxicam (meloxicam 5 mg oral capsule) 1 Capsules Oral (given by mouth) Every day as needed for arthritis Unchanged methocarbamol Unchanged norethindrone (norethindrone 0.35 mg oral tablet) Unchanged omeprazole (omeprazole 20 mg oral delayed release tablet) 1 tab Oral (given by mouth) Every day Unchanged phentermine (phentermine 8 mg oral tablet) 0.5 tab Oral (given by mouth) 3 times a day before meals Unchanged sertraline Unchanged SUMAtriptan Pharmacy Information [id number]: [address] [place] [id number] [phone] Education Materials Kidney Stones Kidney stones are solid, rock-like deposits that form inside of the kidneys. The kidneys are a pairof organs that make urine. A kidney stone may form in a kidney and move into other parts of the urinary tract, including the tubes that connect the kidneys to the bladder (ureters), the bladder, and the tube that carries urine out of the body (urethra). As the stone moves through these areas, it can cause intense pain and block the flow of urine. Kidney stones are created when high levels of certain minerals are found in the urine. The stones are usually passed out of the body through urination, but in some cases, medical treatment may be needed to remove them. What are the causes? Kidney stones may be caused by: ? A condition in which certain glands produce too much parathyroid hormone (primary hyperparathyroidism), which causes too much calcium buildup in the blood. ? A buildup of uric acid crystals in the bladder (hyperuricosuria). Uric acid is a chemical that the body produces when you eat certain foods. It usually exits the body in the urine. ? Narrowing (stricture) of one or both of the ureters. ? A kidney blockage that is present at (congenital obstruction). ? Past surgery on the kidney or the ureters, such as gastric bypass surgery. What increases the risk? The following factors may make you more likely to develop this condition: ? Having had a kidney stone in the past. ? Having a family history of kidney stones. ? Not drinking enough water. ? Eating a diet that is high in protein, salt (sodium), or sugar. ? Being overweight or obese. What are the signs or symptoms? Symptoms of a kidney stone may include: ? Pain in the side of the abdomen, right below the ribs (flank pain). Pain usually spreads (radiates)to the groin. ? Needing to urinate frequently or urgently. ? Painful urination. ? Blood in the urine (hematuria). ? Nausea. ? Vomiting. ? Fever and chills. How is this diagnosed? This condition may be diagnosed based on: ? Your symptoms and medical history. ? A physical exam. ? Blood tests. ? Urine tests. These may be done before and after the stone passes out of your body through urination. ? Imaging tests, such as a CT scan, abdominal X-ray, or ultrasound. ? A procedure to examine the inside of the bladder (cystoscopy). How is this treated? Treatment for kidney stones depends on the size, location, and makeup of the stones. Kidney stones will often pass out of the body through urination. You may need to: ? Increase your fluid intake to help pass the stone. In some cases, you may be given fluids through an IV and may need to be monitored at the hospital. ? Take medicine for pain. ? Make changes in your diet to help prevent kidney stones from coming back. Sometimes, medical procedures are needed to remove a kidney stone. This may involve: ? A procedure to break up kidney stones using: ? A focused beam of light (laser therapy). ? Shock waves (extracorporeal shock wave lithotripsy). ? Surgery to remove kidney stones. This may be needed if you have severe pain or have stones that block your urinary tract. Follow these instructions at home: Medicines ? Take reqn-esu-[id number] and prescription medicines only as told by your health care provider. ? Ask your health care provider if the medicine prescribed to you requires you to avoid driving or using heavy machinery. Eating and drinking ? Drink enough fluid to keep your urine pale yellow. You may be instructed to drink at least 8???10 glasses of water each day. This will help you pass the kidney stone. ? If directed, change your diet. This may include: ? Limiting how much sodium you eat. ? Eating more fruits and vegetables. ? Limiting how much animal protein???such as red meat, poultry, fish, and eggs???you eat. ? Follow instructions from your health care provider about eating or drinking restrictions. General instructions ? Collect urine samples as told by your health care provider. You may need to collect a urine sample: ? 24 hours after you pass the stone. ? 8???12 weeks after passing the kidney stone, and every 6???12 months after that. ? Strain your urine every time you urinate, for as long as directed. Use the strainer that your health care provider recommends. ? Do not throw out the kidney stone after passing it. Keep the stone so it can be tested by your health care provider. Testing the makeup of your kidney stone may help prevent you from getting kidney stones in the future. ? Keep all follow-up visits as told by your health care provider. This is important. You may need follow-up X-rays or ultrasounds to make sure that your stone has passed. How is this prevented? To prevent another kidney stone: ? Drink enough fluid to keep your urine pale yellow. This is the best way to prevent kidney stones. ? Eat a healthy diet and follow recommendations from your health care provider about foods to avoid. You may be instructed to eat a low-protein diet. Recommendations vary depending on the type of kidney stone that you have. ? Maintain a healthy weight. Where to find more information ? National Kidney Foundation (NKF): www.kidney.org ? [employer] (UCF): www.urologyhealth.org Contact a health care provider if: ? You have pain that gets worse or does not get better with medicine. Get help right away if: ? You have a fever or chills. ? You develop severe pain. ? You develop new abdominal pain. ? You faint. ? You are unable to urinate. Summary ? Kidney stones are solid, rock-like deposits that form inside of the kidneys. ? Kidney stones can cause nausea, vomiting, blood in the urine, abdominal pain, and the urge to urinate frequently. ? Treatment for kidney stones depends on the size, location, and makeup of the stones. Kidney stones will often pass out of the body through urination. ? Kidney stones can be prevented by drinking enough fluids, eating a healthy diet, and maintaining a healthy weight. This information is not intended to replace advice given to you by your health care provider. Make sure you discuss any questions you have with your health care provider. Document Revised: 07/08/2022 Document Reviewed: 06/22/2022 [employer] Patient Education ?? 2022 [employer]. Ovarian Cyst An ovarian cyst is a fluid-filled sac that forms on an ovary. The ovaries are small organs that produce eggs in women. Various types of cysts can form on the ovaries. Some may cause symptoms and require treatment. Most ovarian cysts go away on their own, are not cancerous (are benign), and do not cause problems. What are the causes? Ovarian cysts may be caused by: ? Ovarian hyperstimulation syndrome. This is a condition that can develop from taking fertility medicines. It causes multiple large ovarian cysts to form. ? Polycystic ovarian syndrome (PCOS). This is a common hormonal disorder that can cause ovarian cyststo form, and can cause problems with your period or fertility. ? The normal menstrual cycle. What increases the risk? The following factors may make you more likely to develop this condition: ? Being overweight or obese. ? Taking fertility medicines. ? Taking certain forms of hormonal control. ? Smoking. What are the signs or symptoms? Many ovarian cysts do not cause symptoms. If symptoms are present, they may include: ? Pelvic pain or pressure. ? Pain in the lower abdomen. ? Pain during sex. ? Abdominal swelling. ? Abnormal menstrual periods. ? Increasing pain with menstrual periods. How is this diagnosed? These cysts are commonly found during a routine pelvic exam. You may have tests to find out more about the cyst, such as: ? Ultrasound. ? CT scan. ? MRI. ? Blood tests. How is this treated? Many ovarian cysts go away on their own without treatment. Your health care provider may want to check your cyst regularly for 2???3 months to see if it changes. If you are in menopause, it is especially important to have your cyst monitored closely because menopausal women have a higher rate of ovarian cancer. When treatment is needed, it may include: ? Medicines to help relieve pain. ? A procedure to drain the cyst (aspiration). ? Surgery to remove the whole cyst (cystectomy). ? Hormone treatment or control pills. These methods are sometimes used to help keep cysts from coming back. ? Surgery to remove the ovary (oophorectomy). Follow these instructions at home: ? Take dzpy-vsu-bzyrxki and prescription medicines only as told by your health care provider. ? Ask your health care provider if any medicine prescribed to you requires you to avoid driving or using machinery. ? Get regular pelvic exams and Pap tests as often as told by your health care provider. ? Return to your normal activities as told by your health care provider. Ask your health care provider what activities are safe for you. ? Do not use any products that contain nicotine or tobacco, such as cigarettes, e- cigarettes, and chewing tobacco. If you need help quitting, ask your health care provider. ? Keep all follow-up visits. This is important. Contact a health care provider if: ? Your periods are late, irregular, painful, or they stop. ? You have pelvic pain that does not go away. ? You have pressure on your bladder or trouble emptying your bladder completely. ? You have any of the following: ? A feeling of fullness. ? You are gaining weight or losing weight without changing your exercise and eating habits. ? Pain, swelling, or bloating in the abdomen. ? Loss of appetite. ? Pain and pressure in your back and pelvis. ? You think you may be . Get help right away if: ? You have abdominal or pelvic pain that is severe or gets worse. ? You cannot eat or drink without vomiting. ? You suddenly develop a fever or chills. ? Your menstrual period is much heavier than usual. Summary ? An ovarian cyst is a fluid-filled sac that forms on an ovary. ? Some ovarian cysts may cause symptoms and require treatment. ? These cysts are commonly found during a routine pelvic exam. ? Many ovarian cysts go away on their own without treatment. This information is not intended to replace advice given to you by your health care provider. Make sure you discuss any questions you have with your health care provider. Document Revised: 03/27/2021 Document Reviewed: 03/27/2021 Elsevier Patient Education ?? 2022 [employer] Acute Back Pain, Adult Acute back pain is sudden and usually short-lived. It is often caused by an injury to the muscles and tissues in the back. The injury may result from: ? A muscle, tendon, or ligament getting overstretched or torn. Ligaments are tissues that connect bones to each other. Lifting something improperly can cause a back strain. ? Wear and tear (degeneration) of the spinal disks. Spinal disks are circular tissue that provide cushioning between the bones of the spine (vertebrae). ? Twisting motions, such as while playing sports or doing yard work. ? A hit to the back. ? Arthritis. You may have a physical exam, lab tests, and imaging tests to find the cause of your pain. Acute back pain usually goes away with rest and home care. Follow these instructions at home: Managing pain, stiffness, and swelling ? Take xjdm-dps-rulwksn and prescription medicines only as told by your health care provider. Treatment may include medicines for pain and inflammation that are taken by mouth or applied to the skin, or muscle relaxants. ? Your health care provider may recommend applying ice during the first 24???48 hours after your painstarts. To do this: ? Put ice in a plastic bag. ? Place a towel between your skin and the bag. ? Leave the ice on for 20 minutes, 2???3 times a day. ? Remove the ice if your skin turns bright red. This is very important. If you cannot feel pain, heat, or cold, you have a greater risk of damage to the area. ? If directed, apply heat to the affected area as often as told by your health care provider. Use theheat source that your health care provider recommends, such as a moist heat pack or a heating pad. ? Place a towel between your skin and the heat source. ? Leave the heat on for 20???30 minutes. ? Remove the heat if your skin turns bright red. This is especially important if you are unable to feel pain, heat, or cold. You have a greater risk of getting burned. Activity ? Do not stay in bed. Staying in bed for more than 1???2 days can delay your recovery. ? Sit up and stand up straight. Avoid leaning forward when you sit or hunching over when you stand. ? If you work at a desk, sit close to it so you do not need to lean over. Keep your chin tucked in. Keep your neck drawn back, and keep your elbows bent at a 90-degree angle (right angle). ? Sit high and close to the steering wheel when you drive. Add lower back (lumbar) support to your car seat, if needed. ? Take short walks on even surfaces as soon as you are able. Try to increase the length of time you walk each day. ? Do not sit, drive, or package dye stand loader one place for more than 30 minutes at a time. Sitting or standing for long periods of time can put stress on your back. ? Do not drive or use heavy machinery while taking prescription pain medicine. ? Use proper lifting techniques. When you bend and lift, use positions that put less stress on your back: ? Bend your knees. ? Keep the load close to your body. ? Avoid twisting. ? Exercise regularly as told by your health care provider. Exercising helps your back heal faster andhelps prevent back injuries by keeping muscles strong and flexible. ? Work with a physical therapist to make a safe exercise program, as recommended by your health care provider. Do any exercises as told by your physical therapist. Lifestyle ? Maintain a healthy weight. Extra weight puts stress on your back and makes it difficult to have good posture. ? Avoid activities or situations that make you feel anxious or stressed. Stress and anxiety increase muscle tension and can make back pain worse. Learn ways to manage anxiety and stress, such as through exercise. General instructions ? Sleep on a firm mattress in a comfortable position. Try lying on your side with your knees slightlybent. If you lie on your back, put a pillow under your knees. ? Keep your head and neck in a straight line with your spine (neutral position) when using electronicequipment like smartphones or pads. To do this: ? Raise your smartphone or pad to look at it instead of bending your head or neck to look down. ? Put the smartphone or pad at the level of your face while looking at the screen. ? Follow your treatment plan as told by your health care provider. This may include: ? Cognitive or behavioral therapy. ? Acupuncture or massage therapy. ? Meditation or yoga. Contact a health care provider if: ? You have pain that is not relieved with rest or medicine. ? You have increasing pain going down into your legs or buttocks. ? Your pain does not improve after 2 weeks. ? You have pain at night. ? You lose weight without trying. ? You have a fever or chills. ? You develop nausea or vomiting. ? You develop abdominal pain. Get help right away if: ? You develop new bowel or bladder control problems. ? You have unusual weakness or numbness in your arms or legs. ? You feel faint. These symptoms may represent a serious problem that is an emergency. Do not wait to see if the symptoms will go away. Get medical help right away. Call your local emergency services (911 in the [place] Do not drive yourself to the hospital. Summary ? Acute back pain is sudden and usually short-lived. ? Use proper lifting techniques. When you bend and lift, use positions that put less stress on your back. ? Take fbeq-ggw-iajmzwi and prescription medicines only as told by your health care provider, and apply heat or ice as told. This information is not intended to replace advice given to you by your health care provider. Make sure you discuss any questions you have with your health care provider. Document Revised: 01/09/2022 Document Reviewed: 01/09/2022 [employer] Patient Education ?? 2022 [employer] Tests Performed Radiology CT Abdomen and Pelvis w/ Contrast 09/20/2023 11:12 EST US Pelvic Complete 09/20/2023 12:23 EST Medications and Immunizations Administered Given Sodium Chloride 0.9%, 1000 mL, IV Bolus Toradol, 15 mg, IV Push Lab Test Name Test Result Date/Time WBC 9.7 K/mcL 09/20/2023 10:16 EST RBC 4.41 Million/mcL 09/20/2023 10:16 EST Hgb 13.3 g/dL 09/20/2023 10:16 EST Hct 40.6 % 09/20/2023 10:16 EST MCV 92.1 fL 09/20/2023 10:16 EST MCH 30.2 pg 09/20/2023 10:16 EST MCHC 32.8 g/dL 09/20/2023 10:16 EST RDW-CV 12.7 % 09/20/2023 10:16 EST Platelets 329 K/mcL 09/20/2023 10:16 EST MPV 10.0 fL 09/20/2023 10:16 EST Neutro Auto 57.8 % 09/20/2023 10:16 EST Lymph Auto 34.5 % 09/20/2023 10:16 EST [place] Auto 6.5 % 09/20/2023 10:16 EST Eos, Auto 0.50 % 09/20/2023 10:16 EST Basophil Auto 0.4 % 09/20/2023 10:16 EST Imm Gran Auto 0.3 % 09/20/2023 10:16 EST Neutro Absolute 5.6 K/mcL 09/20/2023 10:16 EST Lymph Absolute 3.4 K/mcL 09/20/2023 10:16 EST [place] Absolute 0.6 K/mcL 09/20/2023 10:16 EST Eos Absolute 0.0 K/mcL 09/20/2023 10:16 EST Baso Absolute 0.0 K/mcL 09/20/2023 10:16 EST Imm Gran Absolute 0.03 K/mcL 09/20/2023 10:16 EST Sodium Level 135 mmol/L 09/20/2023 10:16 EST Potassium Level 3.3 mmol/L 09/20/2023 10:16 EST Chloride Level 103 mmol/L 09/20/2023 10:16 EST CO2 27 mmol/L 09/20/2023 10:16 EST Alk Phos 78 IntlUnit/L 09/20/2023 10:16 EST AST 15 IntlUnit/L 09/20/2023 10:16 EST ALT 13 IntlUnit/L 09/20/2023 10:16 EST BUN 11 mg/dL 09/20/2023 10:16 EST Glucose Level 96 mg/dL 09/20/2023 10:16 EST Creatinine Level 0.65 mg/dL 09/20/2023 10:16 EST BUN/Creat Ratio 16.9 09/20/2023 10:16 EST eGFR CKD-EPI 112 mL/min/1.73 m2 09/20/2023 10:16 EST Calcium Level 9.1 mg/dL 09/20/2023 10:16 EST Protein Total 7.3 g/dL 09/20/2023 10:16 EST Albumin Level 4.0 g/dL 09/20/2023 10:16 EST Globulin 3.3 g/dL 09/20/2023 10:16 EST A/G Ratio 1.2 g/dL 09/20/2023 10:16 EST Bilirubin Total 0.5 mg/dL 09/20/2023 10:16 EST Anion Gap 5.0 09/20/2023 10:16 EST Lipase Level 31 unit/L 09/20/2023 10:16 EST Osmolality 269 mOsm/kg 09/20/2023 10:16 EST Patient/Product Design Manager Signature Patient Name:CONSUELO SKELTON I have received this information and my questions have been answered. Patient/Product Design Manager Name: Patient/Product Design Manager Signature: Relationship to Patient: Witness Name/Signature: Date: Electronically Signed on: 09/20/2023 12:44 ESTSigned by: Patient Care team information Care Team Personnel Name: QUINCY ESCOBEDO NP Position: No Access Member Role: Primary Care Physician Address: Address: [address] [place] [id number] Name: AUSTEN Grimes Position: Physician Member Role: Physician Outpatient Therapist Address: Address: [address] [place] [id number] Name: Charlette Gamez Position: Nurse Member Role: Registered Nurse Care Team Related Persons Name: JUAN AEMS
--- OUTSIDE RECORDS SUMMARY | 2024-04-23 22:02 | XMS_ITS | Continuity of Care Document ---
Author Name Unknown Organization [facility] Address [address] [place] [address] Care Team Providers Care Coagulating Operator Name Role Phone QUINCY ESCOBEDO Primary Care Physician Encounter [facility] NBR [id number] Date(s): 09/07/22 - 09/07/22 [facility] [address] [place], [place] [address] Encounter Diagnosis Lipoma(Discharge Diagnosis) - 09/07/22 Discharge Disposition: Home or Self Care Attending Physician: Nehemiah Bonilla DO Referring Physician: QUINCY ESCOBEDO Allergies, Adverse Reactions, Alerts Substance Reaction Severity Status erythromycin Unknown Active penicillins Unknown Active buPROPion Unknown Active Azithromycin Novaplus Unknown Active Functional Status 09/07/22 Other exposure to Infectious Disease Non e Medications busPIRone 0 Refill(s) Start Date: 09/04/22 Status: Ordered estradiol 0.5 mg oral tablet 0 Refill(s) Start Date: 09/04/22 Status: Ordered ibuprofen 0 Refill(s) Start Date: 09/04/22 Status: Ordered meloxicam 5 mg oral capsule 5 mg = 1 cap, Oral, Daily, # 30 cap, 0 Refill(s) Start Date: 09/07/22 Status: Ordered methocarbamol 0 Refill(s) Start Date: 09/04/22 Status: Ordered norethindrone 0.35 mg oral tablet 0 Refill(s) Start Date: 09/04/22 Status: Ordered sertraline 0 Refill(s) Start Date: 09/04/22 Status: Ordered SUMAtriptan 0 Refill(s) Start Date: 09/04/22 Status: Ordered Vital Signs Most recent to oldest [Reference Range]: 1 Weight 109 kg (09/07/22 11:36 AM) Weight Measured (lbs) 240.304 lb (09/07/22 11:36 AM) [place] Body Weight Calculated 56.909 kg (09/07/22 11:36 AM) Height 165 cm (09/07/22 11:36 AM) Height/Length Measured (inches) 64.96 in (09/07/22 11:36 AM) BSA Measured 2.24 m2 (09/07/22 11:36 AM) Body Mass Index 40.04 kg/m2 (09/07/22 11:36 AM) Social History Social History Type Response Tobacco Current everyday tob acco user Tobacco Use:. Sex Physician Outpatient Note * Seble French: MODIFY, MODIFY, MODIFY Nehemiah Bonilla, DO: PERFORM, MODIFY Nehemiah Bonilla, DO: MODIFY Event Display: Office Clinic Note Physician Authored Date: [id number] CONSUELO SKELTON :1980 Age:42 years Sex:Female Visit Date:09/07/2022 Primary Care Physician: QUINCY ESCOBEDO Chief Complaint lipoma right forehead, pre-op? History of Present Illness Established patient here in office today for lipoma right forehead, pre-op?.?? Last office visit on01/18/20 patient was seen for skin lesion of face discussed treatment options including surgical removal. Patient notes that the lesion on the right of her forehead has not changed at all since her last visit. She is interested in having it removed. ??She does not want to file for this, she would like this??performed as a same-day surgery. Review of Systems Negative for: no new cardiac, respiratory, GI, , hematologic, neurologic, psychological, allergic, traumatic or endocrine problems except as listed above Physical Exam Vitals & Measurements HT:??165??cm?? WT:??109??kg?? BMI:??40.04?? BSA:??2.24?? GENERAL APPEARANCE:??The patient is awake, alert, and oriented and in no acute distress, Appears nutritionally sound, Healthy in appearance, Voice is strong, with no stridor or stertor, Handling secretions without difficulty.?PSYCH:??affect normal, good eye contact, oriented to person, oriented to place, oriented to time.?NEURO:??CN's II-XII grossly intact, Gait is normal, The patient has endpoint nystagmus only.?HEENT:??The patient is normocephalic with a normal facies with cranial nerves 2 through 12 bilaterally equal and intact. Pupils are equal and reactive to light with extraocular movements bilaterally equal and intact. There is no proptosis or enophthalmos ?NECK:??There is no palpable lymphadenopathy.?HEART:??regular rate and rhythm.?LUNGS:??clear to auscultation bilaterally, no wheezes/rhonchi/rales.?SKIN:??Fatty lipoma on the right??forehead ?MUSCULOSKELETAL:??normal gait and station.?? Procedure There was a full discussion of all treatment options including conservative management, second opinion and surgical intervention. The patient and or family has opted to proceed with surgical intervention. We have discussed risks and complications as it relates to the procedure and postoperative period, including but not limited to those listed on the consent. Relating to usage of opioids, the rationale to provide narcotic pain control (if required) was reviewed. We discussed non-opioid alternatives which include pial-kcm-hvxavdi Tylenol and Motrin which can be alternated and often can be veryhelpful for pain control. We discussed the risks and side effects the use of opioids. Our goal is to use the lowest effective dose for the shortest duration to help reduce risks/side effects. We discussed informed consent regarding the risks and benefits of opioid usage, not limited to overdose resulting in and addiction, handouts provided. Any unused medication can be disposed of securely at most police stations. The patient is instructed not to operate machinery or drive a motor vehiclewhile using opioids. All of their questions were answered, consent was reviewed and signed. There is no history of any bleeding disorders or anesthesia complications. We will proceed.?? Medical Decision Making: We discussed the risk of the temporal branch facial nerve injury, scarring, we will place incision high in the forehead skin to avoid this and reduce this risk.?? We discussed postoperative pressure dressing on the required, she wishes to proceed. ??She is requesting monitored anesthesia care Assessment/Plan 1.??Lipoma??D17.9 Patient and I discussed that she does not want to be awake for the removal. We discussed that we will go high on the forehead to stay away from the nerve in the forehead. Problem List/Past Medical History Ongoing Morbid obesity Historical No qualifying data Medications busPIRone estradiol 0.5 mg oral tablet ibuprofen meloxicam 5 mg oral capsule, 5 mg= 1 cap, Oral, Daily methocarbamol norethindrone 0.35 mg oral tablet sertraline SUMAtriptan Allergies Azithromycin Novaplus buPROPion erythromycin penicillins Social History Electronic Cigarette/Vaping Electronic Cigarette Use: Never. Tobacco Current everyday tobacco user Tobacco Use:. Electronically Signed on 09/07/22 12:01 PM Nehemiah Bonilla, Patient Care team information Personnel Name: QUINCY ESCOBEDO Address: Address: [address] [place] [address]
--- OUTSIDE RECORDS SUMMARY | 2024-04-23 22:02 | XMS_ITS | Continuity of Care Document ---
Author Name Unknown Organization [facility] Address [address] [place] [id number] Care Team Providers Care Gm Video Name Role Phone GILSONOVBigg HENRIQUEZ, QUINCY Primary Care Physician Encounter [facility] NBR [id number] Date(s): 09/20/23 - 09/20/[address] [address]- Encounter Diagnosis Urgency of urination(Final) - Low back pain, unspecified(Final) - Discharge Disposition: Home or Self Care Attending Physician: AUSTEN Niño Admitting Physician: AUSTEN Niño Allergies, Adverse Reactions, Alerts Substance Reaction Severity [...] 15 tab, 0 Refill(s), 09/25/23 11:40:00 AM ENTRY TECH, Pharmacy: [id number], 165.1, cm, 09/20/23 10:14:00 EST, Height, [...] surgical case 2Utero ablation 3left knee Results Orders for Microbiology Reports Name Date Urine Culture 09/20/23 Microbiology Reports TEST:Urine Culture STATUS:Order in Progress BODY SITE: SOURCE:Urine, Clean Catch COLLECTED DATE/TIME:09/20/23 9:43 AM PRELIMINARY REPORT No growth of uropathogens Social History Social History Type Response Tobacco Current everyday tob acco user Tobacco Use:. Sex Patient Care team information Care Team Personnel Name: QUINCY ESCOBEDO NP Position: No Access Member Role: Primary Care Physician Address: Address: [address] [place] [id number] Care Team Related Persons Name: JUAN AMES
--- OUTSIDE RECORDS SUMMARY | 2024-04-23 22:02 | XMS_ITS | Continuity of Care Document ---
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 Name Role Phone QUINCY ESCOBEDO NP Primary Care Physician Encounter [facility] NBR [phone] Date(s): 09/20/23 - 09/20/23 [facility] [address] [place], [place] [address] Encounter Diagnosis Lower back pain(Discharge Diagnosis) - 09/20/23 Urinary urgency(Discharge Diagnosis) - 09/20/23 Discharge Disposition: Home or Self Care Attending Physician: AUSTEN Niño Allergies, Adverse Reactions, Alerts Substance Reaction Severity Status erythromycin made sick Unknown Active penicillins Unknown Unknown Active Azithromycin Novaplus fainted Unknown Active buPROPion Justin Unknown Active Medications busPIRone 5 mg =, [...] 15 tab, 0 Refill(s), 09/25/23 11:40:00 AM [employer]CTOR, Pharmacy: [facility], 165.1, cm, 09/20/23 10:14:00 EST, Height, [...] 3left knee Results Laboratory List Name Date .Urinalysis POCT 09/20/23 Most recent to oldest [Reference Range]: 1 Method of Collect POC clean catch *NA* (09/20/23 9:46 AM) Specific [place], Ur POC 1.020 *NA* (09/20/23 9:46 AM) Specimen Color POC [Yellow] Light Yellow (09/20/23 9:46 AM) Glucose, Urine POC Negative mg/dL *NA* (09/20/23 9:46 AM) Bilirubin, Urine POC [Negative] Negative (09/20/23 9:46 AM) Ketones, Urine POC [Negative mg/dL] Nega tive mg/dL (09/20/23 9:46 AM) Blood, Urine POC [Negative] Trace *ABN* (09/20/23 9:46 AM) pH, Urine POC 6.00 *NA* (09/20/23 9:46 AM) Protein, Urine POC [Negative mg/dL] Nega tive mg/dL (09/20/23 9:46 AM) Urobilinogen, Urine POC [0.2] 0.2 (09/20/23 9:46 AM) Nitrite, Urine POC [Negative] Negative (09/20/23 9:46 AM) Leuk Esterase, Urine POC [Negative] Trac e *ABN* (09/20/23 9:46 AM) Clarity, Urine POC [Clear] Clear (09/20/23 9:46 AM) Vital Signs Most recent to oldest [Reference Range]: 1 Temperature Tympanic [36.6-38.1 Deg C] 3 6.6 Deg C (09/20/23 9:16 AM) Peripheral Pulse Rate [60-100 bpm] 78 bp m (09/20/23 9:16 AM) Blood Pressure [90-140/60-90 mmHg] 152/9 1mmHg *HI* (09/20/23 9:16 AM) Mean Arterial Pressure, Cuff [70-110 mmH g] 111 mmHg *HI* (09/20/23 9:16 AM) Weight 111.95 kg (09/20/23 9:16 AM) Weight Measured (lbs) 246.807 lb (09/20/23 9:16 AM) Weight Dosing 111.950 kg (09/20/23 9:16 AM) BSA Measured 0 m2 (09/20/23 9:16 AM) Social History Social History Type Response Tobacco Current everyday tob acco user Tobacco Use:. Sex Physician Outpatient Note * AUSTEN Niño: PERFORM Event Display: Office Clinic Note Physician Authored Date: [id number] CONSUELO SKELTON :1980 Age:43 years Sex:Female Visit Date:09/20/2023 Primary Care Physician: QUINCY ESCOBEDO NP Chief Complaint troubles passing BM and urinating. lower back pain that radiates into anterior pelvic region. hx ofkidney stones and infection. afebrile and pain started yesterday. tried tylenol and heating pad with minimal improvment. History of Present Illness Patient has a known history of kidney stones yesterday morning was awoken with low back to left-sided flank pain. ??Denies any gross hematuria.?? Better today. ??Did not have associated nausea or vomiting.?? She also notes some urinary??frequency with voiding small amounts. ??No dysuria. ??She denies any black or bloody stools. ??No abdominal injury or trauma. ??No recent lifting or bending injury.?She notes she has known stones within her kidney.?? She has not seen a urologist in many years.?? Denies any anterior upper abdominal pain no chest pain or shortness of breath. Physical Exam Vitals & Measurements T:??36.6?C ??(Tympanic)?? HR:??78??(Peripheral)?? BP:??152/91?? SpO2:??99%?? WT:??111.95??kg?? Pain Score:??8?? BSA:??0?? Well-appearing no acute distress. ??Abdominal exam shows the abdomen to be soft, there is tenderness suprapubic this reproduces her symptoms. ??No CVA tenderness. ??There is tenderness palpated alongthe lower lumbar spine which reproduces her symptoms. Assessment/Plan 1.??Lower back pain??M54.50 Given her history of kidney stones in the past and now urinary symptoms with urine dip and positivefor blood and white blood cells but negative for nitrate I did offer the patient outpatient treatment with antibiotics and urine culture versus emergency department evaluation to determine if she hasin fact a kidney stone causing symptoms at this time. ??At this time she is elected to go to the emergency department to be further evaluated.?? Patient agreeable to this treatment plan. 2.??Urinary urgency??R39.15 Patient Instructions Transferred to the emergency department Problem List/Past Medical History Ongoing Cervicovaginal cytology: [...] BID estradiol 0.5 mg oral tablet ibuprofen losartan meloxicam 5 mg oral capsule, 5 mg= 1 cap, Oral, Daily, PRN methocarbamol norethindrone 0.35 mg oral tablet omeprazole 20 mg oral delayed release tablet, 20 mg= 1 tab, Oral, Daily phentermine 8 mg oral tablet, 4 mg= 0.5 tab, Oral, TID(AC) sertraline SUMAtriptan Allergies Azithromycin Novaplus??(fainted) buPROPion??(Justin) erythromycin??(made sick) penicillins??(Unknown) Social History Alcohol Never Electronic Cigarette/Vaping Electronic Cigarette Use: Never. Substance Use Current, Marijuana, 3-5 times per week Tobacco Current everyday tobacco user Tobacco Use:. Lab Results Test Name Test Result Date/Time Method of Collect POC clean catch 09/20/2023 09:46 EST Specimen Color POC Light Yellow 09/20/2023 09:46 EST Clarity, Urine POC Clear 09/20/2023 09:46 EST Glucose, Urine POC Negative 09/20/2023 09:46 EST Bilirubin, Urine POC Negative 09/20/2023 09:46 EST Ketones, Urine POC Negative 09/20/2023 09:46 EST Specific [place], Ur POC 1.020 09/20/2023 09:46 EST pH, Urine POC 6.00 09/20/2023 09:46 EST Protein, Urine POC Negative 09/20/2023 09:46 EST Urobilinogen, Urine POC 0.2 09/20/2023 09:46 EST Nitrite, Urine POC Negative 09/20/2023 09:46 EST Blood, Urine POC Trace 09/20/2023 09:46 EST Leuk Esterase, Urine POC Trace 09/20/2023 09:46 EST Electronically Signed on 09/20/23 09:55 AM AUSTEN Niño Patient Care team information Care Team Personnel Name: QUINCY ESCOBEDO NP Position: No Access Member Role: Primary Care Physician Address: Address: [address] [place] [id number] [place] Care Team Related Persons Name: JUAN AMES
--- NOTE | 2024-04-23 22:15 | DI.RAD_ITS ---
Exam(s) XR CHEST 2V PA LATERAL EXAM: XR CHEST 2V PA LATERAL CLINICAL HISTORY: CP/SOB TECHNIQUE: 2D digital imaging was performed of the chest. Two images were obtained. PA and lateral views were obtained. COMPARISON: CR CHEST 2 VIEWS PA,LAT from 06/01/2018 CR XR PORTABLE CHEST AP from 12/10/2020 CR,XR XR CHEST 2V PA LATERAL from 03/08/2024 FINDINGS: MEDIASTINUM: Normal. HEART: Normal. PULMONARY VASCULATURE: Stable appearance of the pulmonary vasculature. LUNGS: No focal consolidating infiltrates are seen. PLEURAL SPACE: No pleural effusion or pneumothorax. BONE:Within normal limits for the patient's age. OTHER FINDINGS:Normal. IMPRESSION: No change in appearance of the chest x-ray compared to prior examinations. No focal consolidating in filtrates are seen. DATA REPOSITORY: RADIATION DOSE DELIVERED:
[2024-04-23 22:31] LABS: Abs Immature Grans 0.03 10^3/uL (0.0-0.06); Basophils % 0.6 %; Eosinophils % 0.9 %; HCT 43.9 % (36.0-46.0); HGB 14.3 g/dL (11.2-15.7); Immature Grans % 0.2 %; Lymphocytes % 36.6 %; MCHC 32.6 % (32.0-36.0); MCV 92 fL (80-95); MPV 10.2 fL (8.0-11.0); Monocytes % 8.1 %; Neutrophils % 53.6 %; Platelet Count 339 10^3/uL (130-400); RBC 4.76 10^6/uL (3.93-5.22); RDW 12.2 % (11.7-14.6); RDW-SD 41.4 fL; WBC 12.64 10^3/uL (4.4-10.8)
[2024-04-23 22:33] LABS: Absolute Basophil Count 0.08 10^3/uL (0.0-0.2); Absolute Eosinophil Count 0.11 10^3/uL (0.0-0.7); Absolute Lymphocyte Count 4.63 10^3/uL (1.2-3.4); Absolute Monocyte Count 1.02 10^3/uL (0.1-0.8); Absolute Neutrophil Count 6.78 10^3/uL (1.2-6.7)
[2024-04-23] MEDS: Aspirin 81 MG CHEW 324 MG CH (22:47)
[2024-04-23] MEDS: ACETAMINOPHEN 1,000 MG/100 ML BTL 400 MG IVPB (22:48)
[2024-04-23] MEDS: Lactated Ringers 1,000 ML 1000 ML IV (22:49)
[2024-04-23 22:51] LABS: ALT 30 U/L (14-59); AST 20 U/L (15-37); Albumin 4.2 g/dL (3.4-5.0); Alkaline Phosphatase 115 U/L (46-116); Anion Gap 10.8 mmol/L (3-11); BUN 12 mg/dL (7-18); Bilirubin, Total 0.22 mg/dL (0.2-1.0); CO2 29.2 mmol/L (21.0-32.0); CREATININE 0.8 mg/dL (0.55-1.02); Calcium 9.6 mg/dL (8.5-10.1); Chloride 103 mmol/L (98-107); Glucose 81 mg/dL (74-106); Magnesium 1.8 mg/dL (1.8-2.4); Potassium 3.6 mmol/L (3.5-5.1); Sodium 143 mmol/L (136-145); Total Protein 8.3 g/dL (6.4-8.2); Troponin I < 50 ng/L (< or =60)
[2024-04-23 22:53] LABS: HCG Qual (Serum) Negative
[2024-04-24] VITALS (15 sets, daily range): BP systolic 141; BP diastolic 97; PULSE 68–88; RESP 14–22; TEMP 36.9; O2SAT 95
--- NOTE | 2024-04-24 00:36 | DI.VRAD_ITS ---
PROCEDURE INFORMATION: Exam: XR Chest Exam date and time: 04/23/2024 10:36 PM Age: 43 years old Clinical indication: Other: Chest pain, heaviness TECHNIQUE: Imaging protocol: Radiologic exam of the chest. Views: 2 views. COMPARISON: CR XR CHEST 2V PA LATERAL 03/08/2024 9:15 PM FINDINGS: Lungs: Unremarkable. No consolidation. Pleural spaces: Unremarkable. No pleural effusion. No pneumothorax. Heart/Mediastinum: Unremarkable. No cardiomegaly. Bones/joints: Unremarkable. IMPRESSION: No acute findings. Dictated and Authenticated by: Ramon Ruvalcaba MD. Ordering:FIDELINA Alamo MD
[2024-04-24 01:46] LABS: Troponin I < 50 ng/L (< or =60)
== END 2024-04-24 02:21 | disposition home or self-care (01) ==
PROVIDERS: Emergency Provider Emergency Medicine; PCP Nurse Practitioner Family
DX: R07.9 Chest pain, unspecified (principal); R06.02 Shortness of breath; I10 Essential (primary) hypertension; E78.5 Hyperlipidemia, unspecified; F17.210 Nicotine dependence, cigarettes, uncomplicated
CPT/HCPCS: 80053; 93005; 96365; 99285; 71046; 83735; 84484; 84703; 85025; 93010; 99284; J0131

== ENCOUNTER → 2024-05-08 02:22 | Outpatient (CLI) | payer MEDICAID, SELFPAY ==
--- NOTE | 2024-05-08 06:15 | ETT_ITS ---
APPROVED REPORT Exam: Exercise Treadmill Patient Location: Out-Patient Room/Bed: Stress Nurse: Shira Elizondo RN Ordering Provider:QUINCY RIGGINSBRUNO, Contact Number: [phone] BMI: 38.40 Baseline Rhythm: Sinus Rhythm Indications: Chest pain, Medical History Medical History: GERD, major depressive disorder, migraines, obesity, current smoker, BELLE, HTN, HLD Cardiac Medications: Albuterol sulfate, buspirone, losartan, magnesium, L-lactate, omeprazole, phente rmine, prometrium, sertraline, sumatriptan Allergies: Penicllins, azithromycic, bupropion Cardiac Risk Factors: HTN, obesity, smoker Previous Cardiac Procedures: None Pretest Chest Pain Characteristics: None Exercise History: Sedentary Physical Disabilities: None Lung Sounds: Clear to auscultation Heart Sounds: Regular Stress Test Details Test: Exercise stress testing was performed using a Adama protocol. Rest Stress HR Resting HR Supine: 81 bpm Max Heart Rate (APMHR): 176 bpm Resting HR Standin bpm Target HR (85% APMHR): 150 bpm Max HR Achieved: 152 bpm % of APMHR: 86 Recovery HR: 93 bpm HR response to stress: Normal HR response to stress BP Resting BP Supine: 140/90 mmHg Resting BP Standin/88 mmHg Max BP: 214/98 mmHg Recovery BP: 138/84 mmHg BP response to stress: Abnormal hypertensive response to stress. ECG Resting ECG: Sinus Rhythm Ectopy: None Stress ECG: Sinus Tachycardia ST Change: No significant ST segment changes noted Arrhythmia: Rare PVC's Recovery ECG: Sinus Rhythm Recovery ST Change: No significant ST segment changes noted Recovery Arrhythmia: Rare PVC's Clinical Reason for Termination: Target HR Achieved Stress Symptoms: None Exercise duration: 05 min09 sec Highest Stage Reached: Stage 2: 2.5 mph at 12% grade. Exercise capacity: 7.05 METs Angina Score: None Rate Pressure Product: [id number] Stress ECG Conclusion 1. Resting electrocardiogram showed low voltage otherwise normal 2. Patient exercised on the Adama protocol and completed a workload of 7 METS 3. Mildly hypertensive blood pressure response to exercise. Normal heart rate response, patient achi eved 93% of predicted heart rate for age 4. There was no electrocardiographic evidence of myocardial ischemia 5. There were no significant dysrhythmias Stress Test Summary STAGE Time (mins) Speed (mph) Grade (%) HR BP SpO2 SYMPTOMS METS Supine 81 140/90 97 Standing 81 148/88 1 3 1.7 10 132 178/84 96 4.5 2 6 2.5 12 150 7 1 min recovery 140 214/98 97 3 min recovery 98 162/78 97 6 min recovery 93 138/84
== END ==
PROVIDERS: PCP Nurse Practitioner Family; Visit Provider Nurse Practitioner Family
DX: R07.9 Chest pain, unspecified (principal)
CPT/HCPCS: 93017

== ENCOUNTER 2024-05-16 13:38 | Emergency (ER) | payer MEDICAID, SELFPAY ==
[2024-05-16 13:47] VITALS: BP 146/82; PULSE 86; RESP 16; TEMP 36.8; O2SAT 98
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
== END 2024-05-16 14:57 | disposition home or self-care (01) ==
PROVIDERS: Emergency Provider Emergency Medicine; PCP Nurse Practitioner Family
DX: M79.672 Pain in left foot (principal); M72.2 Plantar fascial fibromatosis
CPT/HCPCS: 99283

== ENCOUNTER 2025-02-15 18:52 | Emergency (ER) | payer MEDICAID, SELFPAY ==
[2025-02-15 18:56] VITALS: BP 149/98; PULSE 94; RESP 16; TEMP 36.9; O2SAT 98
[2025-02-15 18:59] VITALS: BP 149/98; PULSE 94; RESP 16; TEMP 36.9; O2SAT 98
--- NOTE | 2025-02-15 19:15 | DI.RAD_ITS ---
Exam(s) XR CHEST 2V PA LATERAL EXAM: XR CHEST 2V PA LATERAL CLINICAL HISTORY: Chest pain. TECHNIQUE: 2D digital imaging was performed. COMPARISON: Prior chest x-ray 04/23/2024 FINDINGS: 2 views: Heart size is normal. The mediastinum is not widened. Lungs are clear. No infiltrates nor pleural effusions. IMPRESSION: No acute pulmonary findings. DATA REPOSITORY: RADIATION DOSE DELIVERED:
--- NOTE | 2025-02-15 19:15 | RT.EKG_ITS ---
APPROVED REPORT Exam: Resting ECG Reason for Exam: Chest pain/heaviness Patient Location: E HR:74 bpm ECG Measurements Heart Rate 74 AXIS [place] 163 P 66 QRSd 89 QRS -13 QT 380 T 36 QTc 423 Conclusion Sinus rhythm, rate 74 No interval abnormalities No STEMI No significant changes from priors
[2025-02-15 19:17] VITALS: RESP 14
[2025-02-15 20:01] LABS: HCT 39.3 % (36.0-46.0); HGB 12.9 g/dL (11.2-15.7); Immature Grans % 0.3 %; MCH 29.7 pg (27.0-33.0); MCHC 32.8 % (32.0-36.0); MCV 90 fL (80-95); MPV 9.7 fL (8.0-11.0); Platelet Count 280 10^3/uL (130-400); RBC 4.35 10^6/uL (3.93-5.22); RDW-SD 39.6 fL; WBC 11.77 10^3/uL (4.4-10.8)
[2025-02-15 20:09] VITALS: BP 151/91; PULSE 74; RESP 16; O2SAT 97
[2025-02-15 20:22] LABS: Absolute Eosinophil Count 0.24 10^3/uL (0.0-0.7); Absolute Lymphocyte Count 4.71 10^3/uL (1.2-3.4); Absolute Monocyte Count 0.82 10^3/uL (0.1-0.8); Atypical Lymphocytes % 2 %
[2025-02-15 20:23] LABS: Diff Comment Manual Differential; RBC Morphology Normal
[2025-02-15 20:27] LABS: ALT 21 U/L (14-59); AST 12 U/L (15-37); Albumin 3.6 g/dL (3.4-5.0); Alkaline Phosphatase 90 U/L (46-116); Anion Gap 7.9 mmol/L (3-11); BUN 16 mg/dL (7-18); Bilirubin, Total 0.2 mg/dL (0.2-1.0); CO2 27.1 mmol/L (21.0-32.0); CREATININE 0.8 mg/dL (0.55-1.02); Calcium 9.2 mg/dL (8.5-10.1); Chloride 104 mmol/L (98-107); Estimated GFR 93.12 (mL/min/1.73m2); Glucose 89 mg/dL (74-106); Magnesium 1.7 mg/dL (1.8-2.4); NT-proBNP 88 pg/mL (<300); Potassium 3.5 mmol/L (3.5-5.1); Sodium 139 mmol/L (136-145); Troponin I 5 ng/L (<or=51)
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
[2025-02-15 21:07] VITALS: BP 146/93; PULSE 87; RESP 14; O2SAT 97
--- NOTE | 2025-02-15 21:15 | DI.VRAD_ITS ---
PROCEDURE INFORMATION: Exam: XR Chest Exam date and time: 02/15/2025 8:11 PM Age: 44 years old Clinical indication: Other: Chest pain TECHNIQUE: Imaging protocol: Radiologic exam of the chest. Views: 2 views. COMPARISON: CR XR CHEST 2V PA LATERAL 04/23/2024 10:36 PM FINDINGS: Lungs: Unremarkable. No consolidation. Pleural spaces: Unremarkable. No pleural effusion. No pneumothorax. Heart/Mediastinum: Unremarkable. No cardiomegaly. Bones/joints: Unremarkable. IMPRESSION: No acute findings. Dictated and Authenticated by: Rudy Calvillo MD. Orderin St. Tian Soto MD
[2025-02-15 22:28] LABS: Troponin I 6 ng/L (<or=51)
[2025-02-15 22:45] VITALS: BP 136/64; PULSE 71; RESP 18; O2SAT 97
== END 2025-02-15 22:46 | disposition home or self-care (01) ==
PROVIDERS: Emergency Provider Emergency Medicine; PCP Nurse Practitioner Family
DX: R60.0 Localized edema (principal); I10 Essential (primary) hypertension; E78.5 Hyperlipidemia, unspecified; R41.9 Unspecified symptoms and signs involving cognitive functions and awareness; F17.210 Nicotine dependence, cigarettes, uncomplicated; F17.290 Nicotine dependence, other tobacco product, uncomplicated
CPT/HCPCS: 80053; 93005; 99285; 71046; 83735; 83880; 84484; 85025; 93010; 99284

== ENCOUNTER 2025-03-04 09:43 | Emergency (ER) | payer MEDICAID, SELFPAY ==
[2025-03-04 09:47] VITALS: BP 135/83; PULSE 77; RESP 16; TEMP 37
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
== END 2025-03-04 10:23 | disposition home or self-care (01) ==
PROVIDERS: Emergency Provider Registered Nurse Emergency; PCP Nurse Practitioner Family
DX: B02.9 Zoster without complications (principal); Z59.89 Other problems related to housing and economic circumstances; Z60.8 Other problems related to social environment
CPT/HCPCS: 99283

== ENCOUNTER 2025-03-15 01:13 | Outpatient (CLI) | payer MEDICAID, SELFPAY ==
--- NOTE | 2025-03-15 06:30 | DI.US_ITS ---
Exam(s) US RENAL EXAM: US RENAL CLINICAL HISTORY: monitoring kidney stones,bilat,n20.0. TECHNIQUE: Gutiérrez scale, color and spectral Doppler were used. COMPARISON: US US RENAL from 03/25/[address] CHEST/ABD/PEL W from 11/06/2023 US US ABDOMEN LIMITED from 11/24/2023 FINDINGS: Renal size in cm: Right: 11.1. Left: 10.9. Echogenicity: Normal. Hydronephrosis: No. Cyst or mass: No. Nephrolithiasis: There is a 1 cm stone in the midpole of the right kidney. There is a 7 mm stone in the midpole of the left kidney. There is also 4 mm echogenic focus in the lower pole of the left kid levi which may represent a nonobstructing stone. Other findings: None. Bladder:Normal. Ureteral jets: Right: Visualized and unremarkable. Left: Visualized and unremarkable. Prevoid vol:115 cc Postvoid vol:6 cc Renal color flow: Symmetric and within normal limits. IMPRESSION: Bilateral nephrolithiasis. No evidence of hydronephrosis. DATA REPOSITORY:
== END 2025-03-15 01:33 ==
LOC: DI 01:13
PROVIDERS: PCP Nurse Practitioner Family; Visit Provider Nurse Practitioner Gerontology
DX: N20.0 Calculus of kidney (principal)
CPT/HCPCS: 76770

== ENCOUNTER 2025-03-23 00:42 | Outpatient (CLI) | payer MEDICAID, SELFPAY ==
--- NOTE | 2025-03-23 07:45 | DI.MAMMO_ITS ---
Exam(s) MAMMO SCREENING EXAM: MAMMO SCREENING CLINICAL HISTORY: screening,Z12.39 TECHNIQUE: Mammograms were interpreted according to the usual protocol including computer analysis w [employer] CAD system, tomosynthesis and C-view imaging. COMPARISON: 2023 FINDINGS: The breasts are composed of scattered fibroglandular densities, Breast Density category B. No suspicious masses or suspicious microcalcifications are seen. No skin thickening or abnormal axillary lymph nodes are seen. There has been no significant change from prior exams. IMPRESSION: BI-RADS Category 1, Negative mammogram Yearly screening mammography is recommended. Breast Density - Category B, scattered fibroglandular densities. Breast density Category C or D implies that the patient has dense breast tissue. Dense breast tissue can make it harder to find cancer on a mammogram. Dense breast tissue is also associated with an incr eased risk of breast cancer. This information about the result of the mammogram report was provided to the patient to raise their awareness. Use this report when you speak with the patient about their risks for breast cancer, which includes their family history. At that time, you may recommend additional screening tests (Ultrasoun d or MRI) as these tests may add significant information. A negative radiographic report should not delay biopsy if a dominant or clinically suspicious mass is present. Up to ten percent of cancers are not identified on mammography. A negative report may reinforce clinical impression. Adenosis and dense breasts may obscure an underlying neoplasm. False positive reports average 6 to 10%. Patient will receive a letter notifying them of these results.
== END 2025-03-23 01:02 ==
LOC: DI 00:42
PROVIDERS: PCP Nurse Practitioner Family; Visit Provider Nurse Practitioner Family
DX: Z12.31 Encounter for screening mammogram for malignant neoplasm of breast (principal); R92.323 Mammographic fibroglandular density, bilateral breasts
CPT/HCPCS: 77063; 77067

== ENCOUNTER 2025-03-23 13:40 | Outpatient (CLI) | payer MEDICAID, SELFPAY ==
[2025-03-23 13:29] LABS: Anion Gap 10.6 mmol/L (3-11); BUN 22 mg/dL (7-18); CO2 26.4 mmol/L (21.0-32.0); CREATININE 0.8 mg/dL (0.55-1.02); Calcium 9.8 mg/dL (8.5-10.1); Calculated LDL 158 mg/dL (<100); Chloride 102 mmol/L (98-107); Cholesterol 240 mg/dL (<200); Estimated GFR 93.12 (mL/min/1.73m2); Glucose 90 mg/dL (74-106); HDL Cholesterol 57 mg/dL (>or=50); Sodium 139 mmol/L (136-145); Triglyceride 126 mg/dL (<150)
== END 2025-03-23 13:41 | disposition home or self-care (01) ==
LOC: LBO 13:40
PROVIDERS: PCP Nurse Practitioner Family; Visit Provider Nurse Practitioner Family
DX: I10 Essential (primary) hypertension (principal); E78.5 Hyperlipidemia, unspecified
CPT/HCPCS: 36415; 80048; 80061

== ENCOUNTER 2025-09-16 19:31 | Emergency (ER) | payer MEDICAID, SELFPAY ==
[2025-09-16] VITALS (23 sets, daily range): BP systolic 101–133; BP diastolic 47–79; PULSE 81–96; RESP 12–25; TEMP 37.1; O2SAT 91–99
--- NOTE | 2025-09-16 19:15 | RT.EKG_ITS ---
APPROVED REPORT Exam: Resting ECG Reason for Exam: chest pain Patient Location: E HR:87 bpm ECG Measurements Heart Rate 87 AXIS AR 188 P 65 QRSd 91 QRS 0 QT 384 T [id number] QTc 463 Conclusion Sinus rhythm...normal P axis, V-rate 60- 99 Indeterminate axis...QRS axis indeterminate Nonspecific T abnormalities, inferior leads...T <-0.10mV, II III aVF No Occlusion ID
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
[2025-09-16] MEDS: nitroGLYcerin 0.4 MG TAB SL ×3 (19:58→20:35)
[2025-09-16 20:02] LABS: Abs Immature Grans 0.03 10^3/uL (0.0-0.06); HCT 38.6 % (36.0-46.0); HGB 12.9 g/dL (11.2-15.7); Immature Grans % 0.3 %; MCH 29.7 pg (27.0-33.0); MCHC 33.4 % (32.0-36.0); MCV 89 fL (80-95); MPV 9.8 fL (8.0-11.0); Platelet Count 265 10^3/uL (130-400); RBC 4.35 10^6/uL (3.93-5.22); RDW 12.1 % (11.7-14.6); RDW-SD 39.8 fL; WBC 10.40 10^3/uL (4.4-10.8)
[2025-09-16 20:22] LABS: Lipase 28 U/L (<53)
[2025-09-16 20:23] LABS: Magnesium 1.5 mg/dL (1.6-2.6)
[2025-09-16 20:24] LABS: ALT 18 U/L (10-49); AST 20 U/L (<34); Albumin 4.3 g/dL (3.4-5.0); Alkaline Phosphatase 78 U/L (46-116); Anion Gap 9.8 mmol/L (3-11); BUN 21 mg/dL (9-23); Bilirubin, Total 0.60 mg/dL (0.2-1.2); CO2 27.2 mmol/L (20.0-31.0); Calcium 8.9 mg/dL (8.3-10.6); Chloride 103 mmol/L (98-107); Glucose 120 mg/dL (74-106); Potassium 3.2 mmol/L (3.5-5.1); Sodium 140 mmol/L (136-145); Total Protein 6.9 g/dL (5.7-8.2)
[2025-09-16 20:25] LABS: Troponin I < 3 ng/L (<35)
[2025-09-16 20:28] LABS: D-Dimer 928 ng/mlFEU (<500)
--- NOTE | 2025-09-16 20:30 | DI.CT_ITS ---
Exam(s) CT CHEST PE CTA EXAM: CT CHEST PE CTA CLINICAL HISTORY: elev d-dimer, chest pain. TECHNIQUE: Imaging Protocol: Axial CT angiography was performed with multi- slice acquisition and multi-planar reconstructions as well as axial, coronal and sagittal MIP reconstructions. Computer aided detection (CAD) was utilized. CONTRAST MATERIAL: Intravenous: Omnipaque 350 Contrast volume:100 ml COMPARISON: CT CT CHEST/ABD/PEL W from 11/06/2023 FINDINGS: Pulmonary Arteries: Small emboli are noted in both right and left lower lobe subsegmental branch vessels. No central emboli. Mediastinum and Eufemia: No dominant adenopathy or fluid collection. Pulmonary parenchyma: No consolidation or dominant measurable mass. Pleura: No effusion or pneumothorax. Heart: The heart is not dilated. No coronary artery calcifications are seen. Evidence of right heart strain. Aorta: Thoracic aorta non-dilated. No dissection. Upper abdomen: No acute findings. Bones: Flowing osteophytes in the thoracic spine. Tubes, Catheters, and Lines: None Soft tissues: Unremarkable. IMPRESSION: Bilateral lower lobe subsegmental pulmonary emboli. The lungs are clear. The preliminary [facility] report was reviewed. RADIATION DOSE DELIVERED: 208.27mGy.cm Total DLP DATA REPOSITORY: All CT scans at this facility are submitted to the National Radiology Data Registry (NRDR) Dose Index Registry (DIR) with the [employer] (ACR). RADIATION OPTIMIZATION: All CT scans at this facility use at least one of these dose optimization techniques: automated exposure control; mA and/or kV adjustment per patient size (includes targeted exams where dose is matched to clinical indication); or iterative reconstruction.
[2025-09-16] MEDS: Omnipaque 350 MG/ML 100 ML BTL IJ (20:56)
[2025-09-16] MEDS: Normal Saline Flush 10 ML SYR IVP (20:56)
[2025-09-16] MEDS: Normal Saline - Diluent 50 ML VIAL IJ (20:56)
[2025-09-16 21:10] LABS: Troponin I < 3 ng/L (<35)
[2025-09-16] MEDS: Potassium Chloride 20 MEQ TABCR 40 MEQ PO (21:21)
[2025-09-16] MEDS: Acetaminophen 500 MG TAB 1000 MG PO (21:21)
[2025-09-16] MEDS: Mylanta Suspension 30 ML CUP PO (21:21)
[2025-09-16] MEDS: Famotidine 20 MG/2 ML VIAL IVP (21:21)
--- NOTE | 2025-09-16 21:25 | DI.[facility]_ITS ---
PROCEDURE INFORMATION: Exam: CTA Chest With Contrast Exam date and time: 09/16/2025 8:55 PM Age: 45 years old Clinical indication: Pain and abnormal findings; Abnormal diagnostic tests; Elevated d-dimer; Other: Cp; Chest pain, elevated d dimer TECHNIQUE: Imaging protocol: Computed tomographic angiography of the chest with contrast. Exam focused on the arteries. 3D rendering (Not supervised by radiologist): MIP and/or 3D reconstructed images were created by the technologist. Radiation optimization: All CT scans at this facility use at least one of these dose optimization techniques: automated exposure control; mA and/or kV adjustment per patient size (includes targeted exams where dose is matched to clinical indication); or iterative reconstruction. Contrast material: OMNIPAQUE 350; Contrast volume: 100 ml; Contrast route: INTRAVENOUS (IV); COMPARISON: CT CHEST PE CTA 04/24/2023 10:17 PM FINDINGS: Pulmonary arteries: Normal. No pulmonary emboli. Aorta: Unremarkable. No aortic aneurysm. No aortic dissection. Lungs: Nonocclusive emboli are visualized within some segmental branches of the right lower lobe (series 9/image 87. Nonocclusive emboli are visualized within some subsegmental branches of the left lower lobe. The lungs are clear. Pleural spaces: Unremarkable. No pneumothorax. No pleural effusion. Heart: Heart is normal size. No pericardial effusion. Heart RV/LV ratio: The RV LV ratio is less than 1. Lymph nodes: No enlarged lymph nodes. Bones/joints: Bones have a normal appearance. No acute fracture or suspicious bone lesion. Soft tissues: Unremarkable. IMPRESSION: 1. Bilateral lower lobe nonocclusive subsegmental pulmonary emboli. No findings to suggest right heart strain. 2. No acute pulmonary findings. THIS REPORT CONTAINS FINDINGS THAT MAY BE CRITICAL TO PATIENT CARE. The findings were verbally communicated via telephone conference with REMBERTO DESAI at 9:24 PM EDT on 09/16/2025. The findings were acknowledged and understood. Dictated and Authenticated by: Sandrita Mack MD. Orderin Julia Forman MD
[2025-09-16] MEDS: Apixaban 5 MG TAB PO (21:34)
--- NOTE | 2025-09-17 14:14 | W.ED.FU ---
Date of service: 09/17/25 Time of Service: 14:14 Follow Up Plan: This patient was diagnosed with bilateral PEs. The pharmacy had trouble with her prescription. I called in a starter dose pack for apixaban.
== END 2025-09-16 21:51 | disposition home or self-care (01) ==
PROVIDERS: Emergency Provider Physician Assistant; PCP Nurse Practitioner Family
DX: I26.99 Other pulmonary embolism without acute cor pulmonale (principal); R07.9 Chest pain, unspecified; Z59.89 Other problems related to housing and economic circumstances; Z60.8 Other problems related to social environment
CPT/HCPCS: 99284; 99285; 36415; 71275; 80053; 83690; 93005; 83735; 84484; 85025; 85379; 93010; J3490

== ENCOUNTER → 2025-09-20 06:04 | Outpatient (CLI) | payer MEDICAID, SELFPAY ==
--- NOTE | 2025-09-20 07:00 | DI.US_ITS ---
Exam(s) US EXTREMITY VENOUS BI EXAM: US EXTREMITY VENOUS BI CLINICAL HISTORY: bilat pulmonary embolism,? dvt,i26.99. TECHNIQUE: Bilateral lower extremity venous ultrasound performed using grayscale, color-flow, and spectral Doppler analysis. COMPARISON: No exams were available for comparison FINDINGS: The bilateral common femoral, femoral and popliteal veins demonstrate normal compressibility, augmentation, and color Doppler. The posterior tibial and peroneal veins are patent. IMPRESSION: Right: Negative for DVT Left: Negative for DVT DATA REPOSITORY:
== END ==
LOC: DI 06:04
PROVIDERS: PCP Nurse Practitioner Family; Visit Provider Nurse Practitioner Family
DX: I26.99 Other pulmonary embolism without acute cor pulmonale (principal)
CPT/HCPCS: 93970

== ENCOUNTER 2025-09-25 10:38 | Emergency (ER) | payer MEDICAID, SELFPAY ==
[2025-09-25 10:59] VITALS: BP 116/80; PULSE 79; RESP 18; TEMP 36.9; O2SAT 99
--- NOTE | 2025-09-25 11:00 | RT.EKG_ITS ---
APPROVED REPORT Exam: Resting ECG Reason for Exam: chest heaviness Patient Location: E HR:69 bpm ECG Measurements Heart Rate 69 AXIS TN 176 P 24 QRSd 88 QRS -13 QT 379 T 29 QTc 407 Conclusion Sinus rhythm...normal P axis, V-rate 60- 99 No STEMI
[2025-09-25 11:56] LABS: Abs Immature Grans 0.02 10^3/uL (0.0-0.06); HCT 41.6 % (36.0-46.0); HGB 14.0 g/dL (11.2-15.7); Immature Grans % 0.2 %; MCH 29.9 pg (27.0-33.0); MCHC 33.7 % (32.0-36.0); MCV 89 fL (80-95); MPV 9.9 fL (8.0-11.0); Platelet Count 314 10^3/uL (130-400); RBC 4.69 10^6/uL (3.93-5.22); RDW 12.5 % (11.7-14.6); RDW-SD 40.5 fL; WBC 9.36 10^3/uL (4.4-10.8)
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
[2025-09-25] MEDS: Normal Saline Flush 10 ML SYR IVP (12:13)
[2025-09-25] MEDS: Omnipaque 350 MG/ML 500 ML BTL-Imaging package IJ (12:13)
[2025-09-25] MEDS: Normal Saline - Diluent 50 ML VIAL IJ (12:13)
[2025-09-25 12:16] LABS: INR 1.0 (0.9-1.1); PTT Activated 24.3 sec (20.6-30.2); Prothrombin Time 10.2 sec (9.1-11.1)
[2025-09-25 12:18] LABS: Magnesium 1.8 mg/dL (1.6-2.6)
--- NOTE | 2025-09-25 12:20 | DI.CT_ITS ---
Exam(s) CT CHEST PE CTA EXAM: CT CHEST PE CTA CLINICAL HISTORY: Bilateral PE's, Chest Pain, SOB. TECHNIQUE: Imaging Protocol: Axial CT angiography was performed with multi- slice acquisition and multi-planar and/or 3D reconstructions. Lung Computer Aided Detection (CAD) was utilized. CONTRAST MATERIAL: Intravenous: Omnipaque 350 contrast volume:100 mL COMPARISON: CT CT CHEST PE CTA from 09/16/2025 FINDINGS: Tracheobronchial tree: Patent where visualized. No bronchiectasis. Pulmonary parenchyma: No consolidation or dominant measurable mass. No architectural distortion. Pulmonary Arteries: There is still a filling defect seen in a branch of the pulmonary artery to the medial right lower lobe. Overall, however, the clot burden has decreased compared to the prior examination. Mediastinum and Eufemia: No dominant adenopathy or fluid collection. The esophagus is unremarkable. Visualized thyroid gland: Unremarkable. Pleura: No effusion or pneumothorax. Heart: The heart is not dilated. No coronary artery calcifications are seen. No pericardial effusion. There is no evidence of right heart strain. Aorta: Thoracic aorta non-dilated. Upper abdomen: Left nephrolithiasis. Status post cholecystectomy. Soft tissues: Unremarkable. Bones: Within normal limits for the patient's age. IMPRESSION: 1. There is again seen a nonocclusive thrombus in a subsegmental branch of the pulmonary arteries to the right lower lobe. Overall, the clot burden has decreased compared to the prior examination from 09/16/2025. 2. There is no evidence of right heart strain. 3. No pulmonary infiltrates. RADIATION DOSE DELIVERED: 235.74mGy.cm Total DLP DATA REPOSITORY: All CT scans at this facility are submitted to the National Radiology Data Registry (NRDR) Dose Index Registry (DIR) with the [employer] (ACR). RADIATION OPTIMIZATION: All CT scans at this facility use at least one of these dose optimization techniques: automated exposure control; mA and/or kV adjustment per patient size (includes targeted exams where dose is matched to clinical indication); or iterative reconstruction.
[2025-09-25 12:26] LABS: ALT 17 U/L (10-49); AST 21 U/L (<34); Albumin 4.6 g/dL (3.2-5.0); Alkaline Phosphatase 80 U/L (46-116); Anion Gap 7.5 mmol/L (3-11); BUN 18 mg/dL (9-23); Bilirubin, Total 0.30 mg/dL (0.2-1.2); CO2 27.5 mmol/L (20.0-31.0); Calcium 9.3 mg/dL (8.3-10.6); Chloride 104 mmol/L (98-107); Glucose 92 mg/dL (74-106); Sodium 139 mmol/L (136-145); Total Protein 7.9 g/dL (5.7-8.2); Troponin I < 3 ng/L (<35)
[2025-09-25 12:31] LABS: Potassium 3.9 mmol/L (3.5-5.1)
[2025-09-25 13:42] VITALS: RESP 12
[2025-09-25 14:06] LABS: Troponin I < 3 ng/L (<35)
== END 2025-09-25 14:32 | disposition home or self-care (01) ==
PROVIDERS: Emergency Provider Registered Nurse Emergency; PCP Nurse Practitioner Family
DX: R07.9 Chest pain, unspecified (principal); R06.02 Shortness of breath; Z86.711 Personal history of pulmonary embolism
CPT/HCPCS: 99284; 99285; 36415; 71275; 80053; 93005; 83735; 83880; 84484; 85025; 85610; 85730; 93010